=== PATIENT | female | born 1935 | race Caucasian/White ===

== ENCOUNTER → 2016-07-30 | Outpatient (CLI) | payer OTHER ==
[~2016-07-30] MED LIST: ACET1TAB84 PO; ALPR0.25 PO; ASPI81TA28 PO; ATEN50TA8 PO; CLOP1TAB15 PO; DIVA250T PO; ESCI10TA17 PO; IMD/2 PO; ISOS60TA25 PO; NITR0.4S UT; SIMV40TA2 PO; ZNTT/150 PO
[2016-07-30 12:39] LABS: BLOOD UREA NITROGEN 24 mg/dl (7-18); BUN/CREATININE RATIO 16.3 (10-20); CALCIUM 9.1 mg/dl (8.5-10.1); CARBON DIOXIDE 23 mmol/L (21-32); CHLORIDE 108 mmol/L (98-107); ESTIMATED AVERAGE GLUCOSE 126 mg/dl; GLUCOSE 100 mg/dl (70-99); HA1C FLAG Normal (Normal); POTASSIUM 4.2 mmol/L (3.5-5.1); SODIUM 142 mmol/L (136-145)
[2016-07-30 12:43] LABS: CHOLESTEROL 195 mg/dl (0-200); CHOLESTEROL/HDL RATIO 3.3; HDL CHOLESTEROL 59 mg/dl; LDL CHOLESTEROL CALCULATED 102 mg/dl; TRIGLYCERIDES 168 mg/dl (0-150); VERY LOW DENSITY LIPOPROT CALC 34 mg/dl
== END | disposition home or self-care (01) ==
LOC: C.LABBFT 10:04
PROVIDERS: ATTEND Internal Medicine
DX: I25.10 Atherosclerotic heart disease of native coronary artery without angina pectoris (principal); I10 Essential (primary) hypertension; R73.01 Impaired fasting glucose

== ENCOUNTER → 2016-11-13 | Outpatient (CLI) | payer OTHER ==
[2016-11-13 18:39] LABS: BLOOD UREA NITROGEN 20 mg/dl (7-18); CALCIUM 9.2 mg/dl (8.5-10.1); CARBON DIOXIDE 29 mmol/L (21-32); CHLORIDE 100 mmol/L (98-107); GLUCOSE 96 mg/dl (70-99); POTASSIUM 4.6 mmol/L (3.5-5.1); SODIUM 135 mmol/L (136-145)
== END | disposition home or self-care (01) ==
LOC: C.LABBFT 17:50
PROVIDERS: ATTEND Internal Medicine
DX: E87.70 Fluid overload, unspecified (principal)

== ENCOUNTER → 2017-02-26 | Outpatient (CLI) | payer OTHER ==
[2017-02-26 12:04] LABS: BASO % 1.3 %; COMPLETE YES; EOS % 9.2 %; HEMATOCRIT 39.1 % (37-47); IG% 0.1 %; LYMPH % 31.9 %; LYMPH ABS # 2.49 K/uL (1.2-3.4); MEAN CELL VOLUME 97.5 fL (80-100); MEAN CORPUSCULAR HEMOGLOBIN 32.7 pg (25-34); MEAN CORPUSCULAR HGB CONC 33.5 g/dl (32-36); MEAN PLATELET VOLUME 10.3 fL (7.4-10.4); MONO % 9.6 %; NEUT % 47.9 %; PLATELET COUNT 272 K/uL (130-400); RED BLOOD COUNT 4.01 M/uL (4.2-5.4); WHITE BLOOD COUNT 7.81 K/uL (4.8-10.8)
[2017-02-26 12:12] LABS: ALT/SGPT 15 U/L (12-78); BLOOD UREA NITROGEN 29 mg/dl (7-18); BUN/CREATININE RATIO 22.2 (10-20); CALCIUM 9.2 mg/dl (8.5-10.1); CARBON DIOXIDE 26 mmol/L (21-32); CHLORIDE 106 mmol/L (98-107); CHOLESTEROL 159 mg/dl (0-200); GLUCOSE 111 mg/dl (70-99); POTASSIUM 5.2 mmol/L (3.5-5.1); SODIUM 140 mmol/L (136-145)
[2017-02-26 12:20] LABS: ALB/GLOB RATIO 0.9 (0.9-2); ALKALINE PHOSPHATASE 80 U/L (45-117); AST/SGOT 15 U/L (15-37); CHOLESTEROL/HDL RATIO 3.4; HDL CHOLESTEROL 47 mg/dl; LDL CHOLESTEROL CALCULATED 70 mg/dl; TRIGLYCERIDES 212 mg/dl (0-150); VERY LOW DENSITY LIPOPROT CALC 42 mg/dl
== END | disposition home or self-care (01) ==
LOC: C.LABBFT 10:07
PROVIDERS: ATTEND Internal Medicine
DX: Z00.00 Encounter for general adult medical examination without abnormal findings (principal); I25.10 Atherosclerotic heart disease of native coronary artery without angina pectoris; R73.01 Impaired fasting glucose; I10 Essential (primary) hypertension

== ENCOUNTER 2017-06-21 07:33 | Emergency (ER) | payer OTHER ==
[~2017-06-21] VITALS: Ht 170.2 cm; Wt 83.6 kg
[2017-06-21 07:41] VITALS: TEMP 36.7; Ht 170.2 cm; Wt 83.6 kg
[2017-06-21] MEDS ORDERED: ACETAMINOPHEN 500 MG TAB PO STA (07:47)
--- NOTE | 2017-06-21 07:55 | EMERGENCY ROOM VISIT NOTE ---
History Report prepared by Sharon: Minoo Rey Under the Supervision of: Dr. Jerry Padgett M.D. First contact with patient: 07:37 Stated Complaint: FALL History of Present Illness The patient is an 82 year old white female with a past medical history of hypertension, heart disease, CABG, and a brain aneurysm who presents to the ED with a cc of a sudden fall that occurred just prior to arrival. Positive headache and right shoulder pain. Negative abdominal pain, back pain, or chest pain. The patient states that she was woken by her daughter around 0400 [address]. She states that she does not remember falling out of bed. The patient denies any history of seizures. She denies any tongue bite, or urinary or bowel incontinence. The patient states that she takes aspirin daily. Source of History: patient Onset: prior to arrival Position: other (global) Quality: other (fall) Timing: other (sudden) Associated Symptoms: + headache, No chest pain, No abdominal pain, No back pain Note: Associated Symptoms: Right shoulder pain Review of Systems See HPI for pertinent positives and negatives. A total of ten systems were reviewed and were otherwise negative. Past Medical & Surgical Medical Problems: (1) Brain aneurysm (2) Heart disease (3) Hypertension Surgical Problems: (1) H/O heart artery stent (2) Hx of CABG (3) Hx of cholecystectomy Family History FH: heart disease Hypertension Social History Smoking Status: Current Every Day Smoker Alcohol Use: none Housing Status: lives alone Occupation Status: retired Current/Historical Medications Scheduled Acetaminophen (Tylenol), 650 MG PO QAM Acetaminophen (Tylenol), 975 MG PO QPM Aspirin (Aspirin Ec), 81 MG PO DAILY Clopidogrel (Plavix), 75 MG PO DAILY Divalproex Sodium (Depakote Delay Rel), 250 MG PO HS Duloxetine Hcl (Cymbalta), 60 MG PO DAILY Famotidine (Pepcid), 20 MG PO HS Irbesartan (Avapro), 75 MG PO DAILY Isosorbide Mononitrate Ext Rel (Imdur Ext Rel), 60 MG PO QAM Metoprolol Succinate (Toprol Xl), 100 MG PO DAILY Nitroglycerin (Nitrostat), 0.4 MG UT PRN Simvastatin (Zocor), 40 MG PO QPM Scheduled PRN Alprazolam (Xanax), 0.25 MG PO HS PRN for Anxiety Allergies Coded Allergies: Donepezil (Verified Allergy, Intermediate, dirrhea, 06/21/17) Penicillins (Verified Allergy, Unknown, SWELLING, 06/21/17) Sulfa Antibiotics (Verified Allergy, Unknown, SWELLING, 06/21/17) Physical Exam Vital Signs Date Time Temp Pulse Resp B/P (MAP) Pulse Ox O2 Delivery O2 Flow Rate FiO2 06/21/17 10:32 73 16 145/84 95 Room Air 06/21/17 10:30 70 06/21/17 08:45 63 16 137/55 94 Room Air 06/21/17 07:41 36.7 70 20 161/57 93 Room Air 06/21/17 07:41 68 Physical Exam GENERAL: Awake, alert, well-appearing, NAD HENT: Right forehead contusion with small area of ecchymosis. EYES: Normal conjunctiva. Sclera non-icteric. No midline c-spine tenderness. NECK: Supple. No nuchal rigidity. FROM. RESPIRATORY: CTAB, no rhonchi, wheezing, crackles CARDIAC: RRR, no MRG ABDOMEN: Soft, NTND, BS+ MSK: No chest wall TTP, no LE edema, surgical scar over right shoulder, mild tenderness to palpation, no back, chest, or abdominal tenderness to palpation. NEURO: GCS 15, CN 2-12 intact, moves all 4s on command SKIN: No rash or jaundice noted. Medical Decision & Procedures ER Provider Diagnostic Interpretation: Radiology results as stated below per my review and radiologist interpretation: R SHOULDER MIN 2 VIEWS ROUTINE HISTORY: 82 years-old Female s/p fall, prior total shoulder prior reverse right total shoulder arthroplasty. Acute right shoulder pain status post fall COMPARISON: Chest radiograph 06/21/2017. TECHNIQUE: 3 views of the right shoulder FINDINGS: Postoperative changes compatible with prior reverse right total shoulder arthroplasty. Ossifications both inferior and superior to the glenohumeral joint as well as ossifications lateral to the proximal humeral diaphysis may reflect heterotopic ossifications. No acute fracture or subluxation identified. No malalignment identified. Moderate degenerative changes of the right AC joint. Prior median sternotomy. Minimally displaced fracture involving the lateral aspect of the right seventh rib is noted which appears acute to subacute. Prior median sternotomy. Surgical clips project over the left heart border. Atherosclerosis of the carotid bulbs. IMPRESSION: 1. Reverse right total shoulder arthroplasty with satisfactory alignment. Probable heterotopic ossifications about the right shoulder without definite acute fracture or dislocation. 2. Minimally displaced acute to subacute fracture involves the lateral aspect of the right seventh rib which appears new from comparison study 06/02/2016. The above report was generated using voice recognition software. It may contain grammatical, syntax or spelling errors. Electronically signed by: Kel Canales M.D. 06/21/2017 8:55 AM Dictated Date/Time: 06/21/2017 8:[address] HEAD WITHOUT CONTRAST (CT) CLINICAL HISTORY: Head trauma. Head pain. Right for head contusion. COMPARISON STUDY: 06/02/2016 TECHNIQUE: Axial CT of the brain is performed from the vertex to the skull base. IV contrast was not administered for this examination. A dose lowering technique was utilized adhering to the principles of ALARA. CT DOSE: FINDINGS: No intra or extra-axial mass lesions are visualized. There is no CT evidence of acute cortical infarction. There is no evidence of midline shift. There is no acute hemorrhage. No calvarial fractures are visualized. There are patchy white matter hypodensities likely on a small vessel basis. There is no evidence of pathologic ventricular dilatation. There is no evidence of acute sinusitis. 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 There is a right frontal scalp hematoma. IMPRESSION: 1. No evidence of acute intracranial injury 2. Right frontal scalp hematoma 3. 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 Electronically signed by: Bruce Lee M.D. 06/21/2017 8:16 AM Dictated Date/Time: 06/21/2017 8:13 AM CHEST ONE VIEW PORTABLE HISTORY: Generalized abdominal pain. COMPARISON: Chest 06/02/2016. FINDINGS: No pneumothorax. No pleural effusions. The heart is top normal in size. Poststernotomy changes. A few bibasilar linear densities suggesting scarring or atelectasis. The lungs are otherwise clear. No evidence for pulmonary edema. There is a right shoulder prosthesis. IMPRESSION: No significant change compared to the prior study. No acute process. Electronically signed by: Ulysses Villeda M.D. 06/21/2017 8:55 AM Dictated Date/Time: 06/21/2017 8:[address] OF THE CERVICAL SPINE CLINICAL HISTORY: Neck pain status post trauma COMPARISON STUDY: No previous studies for comparison. CT DOSE: 1017.95 mGy.cm TECHNIQUE: CT scan of the cervical spine was performed from the skull base to the thoracic inlet. Images are reviewed in the axial, sagittal, and coronal planes. IV contrast was not administered for this examination. A dose lowering technique was utilized adhering to the principles of ALARA. FINDINGS: The visualized portions of the lung apices reveal no evidence of pneumothorax. The prevertebral soft tissues are normal. No fractures or traumatic subluxations are visualized. There is a C3-4 disc bulge/protrusion. There is 2 mm of anterior subluxation of C3 on C4, a finding which is felt to be degenerative. IMPRESSION: 1. No evidence of acute fracture or traumatic subluxation 2. Multilevel degenerative change. C3-4 disc bulge/protrusion. 2 mm of anterior subluxation of C3 on C4, likely degenerative Electronically signed by: Bruce Lee M.D. 06/21/2017 8:18 AM Dictated Date/Time: 06/21/2017 8:16 AM Laboratory Results 06/21/17 07:55 Red Blood Count 4.19, Mean Corpuscular Volume 97.1, Mean Corpuscular Hemoglobin 31.7, Mean Corpuscular Hemoglobin Concent 32.7, Mean Platelet Volume 9.9, Neutrophils (%) (Auto) 46.9, Lymphocytes (%) (Auto) 30.8, Monocytes (%) (Auto) 10.6, Eosinophils (%) (Auto) 10.6, Basophils (%) (Auto) 1.0, Neutrophils # (Auto ) 3.37, Lymphocytes # (Auto) 2.21, Monocytes # (Auto) 0.76, Eosinophils # (Auto ) 0.76, Basophils # (Auto) 0.07 06/21/17 07:55 Test 06/21/17 07:55 06/21/17 08:42 White Blood Count 7.18 K/uL (4.8-10.8) Red Blood Count 4.19 M/uL (4.2-5.4) Hemoglobin 13.3 g/dL (12.0-16.0) Hematocrit 40.7 % (37-47) Mean Corpuscular Volume 97.1 fL (80-100) Mean Corpuscular Hemoglobin 31.7 pg (25-34) Mean Corpuscular Hemoglobin Concent 32.7 g/dl (32-36) Platelet Count 236 K/uL (130-400) Mean Platelet Volume 9.9 fL (7.4-10.4) Neutrophils (%) (Auto) 46.9 % Lymphocytes (%) (Auto) 30.8 % Monocytes (%) (Auto) 10.6 % Eosinophils (%) (Auto) 10.6 % Basophils (%) (Auto) 1.0 % Neutrophils # (Auto) 3.37 K/uL (1.4-6.5) Lymphocytes # (Auto) 2.21 K/uL (1.2-3.4) Monocytes # (Auto) 0.76 K/uL (0.11-0.59) Eosinophils # (Auto) 0.76 K/uL (0-0.5) Basophils # (Auto) 0.07 K/uL (0-0.2) RDW Standard Deviation 46.9 fL (36.4-46.3) RDW Coefficient of Variation 13.4 % (11.5-14.5) Immature Granulocyte % (Auto) 0.1 % Immature Granulocyte # (Auto) 0.01 K/uL (0.00-0.02) Anion Gap 8.0 mmol/L (3-11) Est Creatinine Clear Calc Drug Dose 41.2 ml/min Estimated GFR () 50.3 Estimated GFR (Non- 43.4 BUN/Creatinine Ratio 22.7 (10-20) Calcium Level 8.9 mg/dl (8.5-10.1) Total Bilirubin 0.3 mg/dl (0.2-1) Direct Bilirubin < 0.1 mg/dl (0-0.2) Aspartate Amino Transf (AST/SGOT) 18 U/L (15-37) Alanine Aminotransferase (ALT/SGPT) 17 U/L (12-78) Alkaline Phosphatase 85 U/L (45-117) Troponin I < 0.015 ng/ml (0-0.045) Total Protein 7.2 gm/dl (6.4-8.2) Albumin 3.4 gm/dl (3.4-5.0) Prothrombin Time 9.5 SECONDS (9.0-12.0) Prothromb Time International Ratio 0.9 (0.9-1.1) Activated Partial Thromboplast Time 26.0 SECONDS (21.0-31.0) Partial Thromboplastin Ratio 1.0 Laboratory results reviewed by me Medications Administered Medications (Trade) Dose Ordered Sig/Gurjit Route Start Time Stop Time Status Last Admin Dose Admin Acetaminophen (Tylenol Tab) 1,000 mg NOW STAT PO 06/21/17 07:47 06/21/17 07:49 DC 06/21/17 07:54 1,000 MG ECG Indication: other (trauma) Rate (beats per minute): 65 Rhythm: normal sinus Findings: T-wave inversion (Lateral), other (borderline QRS and QTC, no other STS changes or TWI) Comparison ECG Date: 06/02/16 Change: When compared to EKG done on 06/02/16 QRS and T wave inversions are old. ED Course 0742: The patient was evaluated in room A3. A complete history and physical exam was performed. 0951: I reevaluated the patient and she is resting comfortably. I discussed the test results with her and I discussed the treatment plan. Neurology will be consulted and then she will be discharged home. 1024: I discussed the patients case with Dr. Ann, Neurology. He said that this was unlikely seizure and states that the patient is okay to go home. 1100: I reevaluated the patient and she is doing well. I discussed the treatment plan and she verbalized complete understanding and agreement. She is ready to go home. Medical Decision Triage Nursing notes reviewed. The patient's presentation and history were concerning for ICH, fall, strain, sprain, syncope, ACS. The patient is an 82 year old white female with a past medical history of hypertension, heart disease, CABG, and a brain aneurysm who presents to the ED with a cc of a sudden fall that occurred just prior to arrival. Patient was seen and evaluated the bedside. Patient did have a fall. Patient denies any seizure history and denies any tongue biting or incontinence. Patient does complain of some mild right-sided shoulder pain as well as mild headache. She does take aspirin and Plavix. Patient does have a noted surgical scar to the right shoulder. Patient is neuro intact. Patient does have a small contusion to the right forehead. Patient did have CT of the head and neck. Patient does have a noted aneurysm which appears chronic as patient prior brain MRI shows a right MCA aneurysm. Patient has a normal neurologic exam. Patient did have blood work that was completed that was fairly unremarkable. Patient's EKG shows T-wave inversions laterally which are chronic. I did discuss with the neurologist given the patient's prior history of aneurysm with or not this would cause some sort of seizure. He stated unlikely. CT noted this as well but no acute bleed. CT C spine degenerative changes, neg acute. Patient was informed of all findings. Patient did have a chest x-ray which showed a subacute to acute right-sided rib fracture however she has no tenderness to palpation. Patient was not tachypneic nor hypoxic. Patient was instructed to apply a compression bandage to her head. Patient was given strict follow-up, discharge, and return precautions. All questions were answered. Patient was deemed suitable for outpatient follow-up at this time. Patient agreed with the plan of care and was safely discharged home. Medication Reconcilliation Current Medication List: was personally reviewed by me Blood Pressure Screening Patient's blood pressure: Elevated blood pressure Blood pressure disposition: Referred to PCP Consults Time Called: 1012 Consulting Physician: Dr. Ann, Neurology Returned Call: [phone] I discussed the patients case with Dr. Ann, Neurology. He said that this was unlikely seizure and states that the patient is okay to go home. Impression Primary Impression: Fall Additional Impression: Contusion of head Scribe Attestation The scribe's documentation has been prepared under my direction and personally reviewed by me in its entirety. I confirm that the note above accurately reflects all work, treatment, procedures, and medical decision making performed by me. Departure Information Dispostion Home / Self-Care Referrals Irma Reid M.D. (PCP) Forms HOME CARE DOCUMENTATION FORM, IMPORTANT VISIT INFORMATION Patient Instructions ED Contusion Face, ED Mechanical Fall, ED Prevention Fall, My [facility] Additional Instructions Please return to the emergency department if you have worsening or recurrent symptoms not amenable to at-home treatment. Please call for a follow-up appointment with her primary care physician. Please take your medications as prescribed. If you have other concerns and/or complaints please feel free to also call your primary care physician's office or return the ED for further evaluation, management, and treatment. Take your medications as prescribed. Apply a compression bandage to your head to help w/ swelling. You may also try icepacks. You have been examined and treated today on an emergency basis only. This is not a substitute for, or an effort to provide, complete comprehensive medical care. It is impossible to recognize and treat all injuries or illnesses in a single emergency department visit. It is therefore important that you follow up closely with [facility], your PCP, and/or your specialist(s). Call as soon as possible for an appointment. Thank you for your time and consideration. I look forward to speaking with you again soon. Please don't hesitate to call us if you have any questions. Problem Qualifiers Primary Impression: Fall Encounter type: initial encounter Qualified Codes: W19.XXXA - Unspecified fall, initial encounter Additional Impression: Contusion of head Encounter type: initial encounter Contusion of head detail: scalp Qualified Codes: S00.03XA - Contusion of scalp, initial encounter
[2017-06-21 08:17] LABS: BASO ABS # 0.07 K/uL (0-0.2); COMPLETE YES; EOS % 10.6 %; HEMATOCRIT 40.7 % (37-47); IG% 0.1 %; LYMPH % 30.8 %; LYMPH ABS # 2.21 K/uL (1.2-3.4); MEAN CELL VOLUME 97.1 fL (80-100); MEAN CORPUSCULAR HEMOGLOBIN 31.7 pg (25-34); MEAN CORPUSCULAR HGB CONC 32.7 g/dl (32-36); MEAN PLATELET VOLUME 9.9 fL (7.4-10.4); MONO % 10.6 %; NEUT % 46.9 %; PLATELET COUNT 236 K/uL (130-400); RED BLOOD COUNT 4.19 M/uL (4.2-5.4); WHITE BLOOD COUNT 7.18 K/uL (4.8-10.8)
--- NOTE | 2017-06-21 08:17 | DIAGNOSTIC IMAGING REPORT ---
CT HEAD WITHOUT CONTRAST (CT) CLINICAL HISTORY: Head trauma. Head pain. Right for head contusion. COMPARISON STUDY: 06/02/2016 TECHNIQUE: Axial CT of the brain is performed from the vertex to the skull base. IV contrast was not administered for this examination. A dose lowering technique was utilized adhering to the principles of ALARA. CT DOSE: FINDINGS: No intra or extra-axial mass lesions are visualized. There is no CT evidence of acute cortical infarction. There is no evidence of midline shift. There is no acute hemorrhage. No calvarial fractures are visualized. There are patchy white matter hypodensities likely on a small vessel basis. There is no evidence of pathologic ventricular dilatation. There is no evidence of acute sinusitis. 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 There is a right frontal scalp hematoma. IMPRESSION: 1. No evidence of acute intracranial injury 2. Right frontal scalp hematoma 3. 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 Electronically signed by: Bruce Lee M.D. 06/21/2017 8:16 AM Dictated Date/Time: 06/21/2017 8:13 AM
--- NOTE | 2017-06-21 08:19 | DIAGNOSTIC IMAGING REPORT ---
CT OF THE CERVICAL SPINE CLINICAL HISTORY: Neck pain status post trauma COMPARISON STUDY: No previous studies for comparison. CT DOSE: 1017.95 mGy.cm TECHNIQUE: CT scan of the cervical spine was performed from the skull base to the thoracic inlet. Images are reviewed in the axial, sagittal, and coronal planes. IV contrast was not administered for this examination. A dose lowering technique was utilized adhering to the principles of ALARA. FINDINGS: The visualized portions of the lung apices reveal no evidence of pneumothorax. The prevertebral soft tissues are normal. No fractures or traumatic subluxations are visualized. There is a C3-4 disc bulge/protrusion. There is 2 mm of anterior subluxation of C3 on C4, a finding which is felt to be degenerative. IMPRESSION: 1. No evidence of acute fracture or traumatic subluxation 2. Multilevel degenerative change. C3-4 disc bulge/protrusion. 2 mm of anterior subluxation of C3 on C4, likely degenerative Electronically signed by: Bruce Lee M.D. 06/21/2017 8:18 AM Dictated Date/Time: 06/21/2017 8:16 AM
[2017-06-21] MEDS ORDERED: METO-479 PO (08:26)
[2017-06-21] MEDS ORDERED: DULO60CA44 PO (08:26)
[2017-06-21] MEDS ORDERED: [UNRECOGNIZED DRUG - CODE] PO (08:26)
[2017-06-21] MEDS ORDERED: ACET-1311 PO ×2 (08:26)
[2017-06-21] MEDS ORDERED: DIVA250T4 PO (08:26)
[2017-06-21] MEDS ORDERED: FAMO20TA11 PO (08:26)
[2017-06-21 08:50] LABS: ALKALINE PHOSPHATASE 85 U/L (45-117); ALT/SGPT 17 U/L (12-78); BLOOD UREA NITROGEN 27 mg/dl (7-18); BUN/CREATININE RATIO 22.7 (10-20); CALCIUM 8.9 mg/dl (8.5-10.1); CARBON DIOXIDE 26 mmol/L (21-32); CHLORIDE 106 mmol/L (98-107); CREATININE 1.17 mg/dl (0.60-1.20); GLUCOSE 108 mg/dl (70-99)
[2017-06-21 08:51] LABS: POTASSIUM 4.6 mmol/L (3.5-5.1); SODIUM 140 mmol/L (136-145)
[2017-06-21 08:56] LABS: AST/SGOT 18 U/L (15-37)
--- NOTE | 2017-06-21 08:56 | DIAGNOSTIC IMAGING REPORT ---
CHEST ONE VIEW PORTABLE HISTORY: Generalized abdominal pain. COMPARISON: Chest 06/02/2016. FINDINGS: No pneumothorax. No pleural effusions. The heart is top normal in size. Poststernotomy changes. A few bibasilar linear densities suggesting scarring or atelectasis. The lungs are otherwise clear. No evidence for pulmonary edema. There is a right shoulder prosthesis. IMPRESSION: No significant change compared to the prior study. No acute process. Electronically signed by: Ulysses Villead M.D. 06/21/2017 8:55 AM Dictated Date/Time: 06/21/2017 8:52 AM
--- NOTE | 2017-06-21 08:57 | DIAGNOSTIC IMAGING REPORT ---
R SHOULDER MIN 2 VIEWS ROUTINE HISTORY: 82 years-old Female s/p fall, prior total shoulder prior reverse right total shoulder arthroplasty. Acute right shoulder pain status post fall COMPARISON: Chest radiograph 06/21/2017. TECHNIQUE: 3 views of the right shoulder FINDINGS: Postoperative changes compatible with prior reverse right total shoulder arthroplasty. Ossifications both inferior and superior to the glenohumeral joint as well as ossifications lateral to the proximal humeral diaphysis may reflect heterotopic ossifications. No acute fracture or subluxation identified. No malalignment identified. Moderate degenerative changes of the right AC joint. Prior median sternotomy. Minimally displaced fracture involving the lateral aspect of the right seventh rib is noted which appears acute to subacute. Prior median sternotomy. Surgical clips project over the left heart border. Atherosclerosis of the carotid bulbs. IMPRESSION: 1. Reverse right total shoulder arthroplasty with satisfactory alignment. Probable heterotopic ossifications about the right shoulder without definite acute fracture or dislocation. 2. Minimally displaced acute to subacute fracture involves the lateral aspect of the right seventh rib which appears new from comparison study 06/02/2016. The above report was generated using voice recognition software. It may contain grammatical, syntax or spelling errors. Electronically signed by: Kel Canales M.D. 06/21/2017 8:55 AM Dictated Date/Time: 06/21/2017 8:51 AM
[2017-06-21 09:08] LABS: INR 0.9 (0.9-1.1); PROTHROMBIN TIME (PATIENT) 9.5 SECONDS (9.0-12.0)
[2017-06-21 11:05] VITALS: BP 141/70; PULSE 83; O2SAT 93
== END 2017-06-21 11:07 | disposition home or self-care (01) ==
LOC: EDBD 07:33 → C.EDA 07:35
DX: S00.83XA Contusion of other part of head, initial encounter (principal); S22.31XA Fracture of one rib, right side, initial encounter for closed fracture; W06.XXXA Fall from bed, initial encounter; M25.511 Pain in right shoulder; I67.1 Cerebral aneurysm, nonruptured; R40.2412 Glasgow coma scale score 13-15, at arrival to emergency department; R94.31 Abnormal electrocardiogram [ECG] [EKG]; I11.0 Hypertensive heart disease with heart failure; F17.200 Nicotine dependence, unspecified, uncomplicated; Z95.1 Presence of aortocoronary bypass graft; Z79.82 Long term (current) use of aspirin; Z82.49 Family history of ischemic heart disease and other diseases of the circulatory system

== ENCOUNTER 2017-06-23 08:41 | Emergency (ER) | payer OTHER ==
[~2017-06-23] VITALS: Ht 170.2 cm; Wt 77.0 kg
[~2017-06-23 08:41] MED LIST changes: +ACET-1311 PO; -ACET1TAB84 PO; -ATEN50TA8 PO; -DIVA250T PO; +DIVA250T4 PO; +DULO60CA44 PO; -ESCI10TA17 PO; +FAMO20TA11 PO; -IMD/2 PO; +METO-479 PO; -ZNTT/150 PO; +[UNRECOGNIZED DRUG - CODE] PO
[2017-06-23 08:45] VITALS: TEMP 36.4; Ht 170.2 cm; Wt 77.0 kg
[2017-06-23] MEDS ORDERED: HYDROCODONE/ACETAMOPHEN 5/325MG TAB PO STA (09:05)
[2017-06-23] MEDS ORDERED: TRAMADOL HCL 50 MG TAB PO STA (09:05)
[2017-06-23] MEDS ORDERED: IBUPROFEN 600 MG TAB PO STA (09:05)
--- NOTE | 2017-06-23 09:07 | EMERGENCY ROOM VISIT NOTE ---
History Report prepared by Sharon: Minoo Rey Under the Supervision of: Dr. Jerry Padgett M.D. First contact with patient: 08:50 Chief Complaint: BACK PAIN Stated Complaint: RIGHT KNEE PAIN, BACK PAIN HURTS TO BRETH History of Present Illness The patient is an 82 year old white female with a past medical history of Heart disease, hypertension, brain aneurysm who presents to the ED with a cc of persistent back pain beginning prior to arrival. Positive headache, chest pain with breathing, bilateral knee pain. She currently rates her discomfort as an 8/ 10 in severity. Per records, the patient was found beside her bed two days ago after an unwitnessed fall. Records indicate that the patient had normal x-rays and CT scans. The patient states that she has tried Tylenol without relief of her symptoms. The patient denies any falls since she was evaluated in the emergency department. Source of History: patient Onset: prior to arrival Position: back Symptom Intensity: 8/10 Timing: other (persistent) Associated Symptoms: + headache, + chest pain Note: Associated symptoms: bilateral knee pain Review of Systems See HPI for pertinent positives and negatives. A total of ten systems were reviewed and were otherwise negative. Past Medical & Surgical Medical Problems: (1) Brain aneurysm (2) Heart disease (3) Hypertension Surgical Problems: (1) H/O heart artery stent (2) Hx of CABG (3) Hx of cholecystectomy Family History FH: heart disease Hypertension Social History Smoking Status: Current Every Day Smoker Alcohol Use: none Housing Status: lives alone Occupation Status: retired Current/Historical Medications Scheduled Acetaminophen (Tylenol), 650 MG PO QAM Acetaminophen (Tylenol), 975 MG PO QPM Aspirin (Aspirin Ec), 81 MG PO DAILY Clopidogrel (Plavix), 75 MG PO DAILY Divalproex Sodium (Depakote Delay Rel), 250 MG PO QAM Duloxetine Hcl (Cymbalta), 60 MG PO DAILY Famotidine (Pepcid), 20 MG PO QAM Irbesartan (Avapro), 75 MG PO DAILY Isosorbide Mononitrate Ext Rel (Imdur Ext Rel), 60 MG PO QAM Metoprolol Succinate (Toprol Xl), 100 MG PO DAILY Nitroglycerin (Nitrostat), 0.4 MG UT PRN Simvastatin (Zocor), 40 MG PO QPM Tramadol Hcl (Ultram), 25 MG PO Q8H Scheduled PRN Alprazolam (Xanax), 0.25 MG PO HS PRN for Anxiety Oxycodone Immediate Rel Tab (Roxicodone Ir), 2.5 MG PO Q6H PRN for Pain Allergies Coded Allergies: Donepezil (Verified Allergy, Intermediate, dirrhea, 06/23/17) Penicillins (Verified Allergy, Unknown, SWELLING, 06/23/17) Sulfa Antibiotics (Verified Allergy, Unknown, SWELLING, 06/23/17) Physical Exam Vital Signs Date Time Temp Pulse Resp B/P (MAP) Pulse Ox O2 Delivery O2 Flow Rate FiO2 06/23/17 11:29 59 20 119/59 95 Room Air 06/23/17 10:38 58 06/23/17 10:33 59 22 94 Room Air 06/23/17 10:29 94 Room Air 06/23/17 08:45 36.4 72 22 144/64 96 Room Air Physical Exam GENERAL: Awake, alert, well-appearing, NAD HENT: Ecchymosis to the right forehead EYES: Normal conjunctiva. Sclera non-icteric. NECK: Supple. No nuchal rigidity. FROM. RESPIRATORY: CTAB, no rhonchi, wheezing, crackles CARDIAC: RRR, no MRG ABDOMEN: Soft, NTND, BS+ MSK: some right sided chest wall pain, no LE edema, no posterior chest or back pain, mild tenderness over the palm of the right hand, some bruising to the bilateral knees, NVI distally. NEURO: GCS 15, CN 2-12 intact, moves all 4s on command SKIN: No rash or jaundice noted. Medical Decision & Procedures ER Provider Diagnostic Interpretation: Radiology results as stated below per my review and radiologist interpretation: R KNEE 3 VIEWS, L KNEE 3 VIEWS CLINICAL HISTORY: s/p fall, bruising. Bilateral knee pain. COMPARISON STUDY: None. FINDINGS: Mild cartilage space narrowing within the medial compartments of the bilateral knees. Surgical clips within the medial left knee. No fracture or dislocation. No knee effusions. IMPRESSION: No fracture or dislocation within the right or left knee. Electronically signed by: Ulysses Villeda M.D. 06/23/2017 10:09 AM Dictated Date/Time: 06/23/2017 10:07 AM R KNEE 3 VIEWS, L KNEE 3 VIEWS CLINICAL HISTORY: s/p fall, bruising. Bilateral knee pain. COMPARISON STUDY: None. FINDINGS: Mild cartilage space narrowing within the medial compartments of the bilateral knees. Surgical clips within the medial left knee. No fracture or dislocation. No knee effusions. IMPRESSION: No fracture or dislocation within the right or left knee. Electronically signed by: Ulysses Villeda M.D. 06/23/2017 10:09 AM Dictated Date/Time: 06/23/2017 10:[address] HEAD WITHOUT CONTRAST (CT) CLINICAL HISTORY: Head pain status post trauma COMPARISON STUDY: 06/21/2017 TECHNIQUE: Axial CT of the brain is performed from the vertex to the skull base. IV contrast was not administered for this examination. A dose lowering technique was utilized adhering to the principles of ALARA. CT DOSE: 1310.24 mGy.cm FINDINGS: No intra or extra-axial mass lesions are visualized. There is no CT evidence of acute cortical infarction. There is no evidence of midline shift. There is no acute hemorrhage. No calvarial fractures are visualized. There are patchy white matter hypodensities likely on a small vessel basis. There is no evidence of pathologic ventricular dilatation. There is been interval decrease in the size of the right frontal scalp hematoma. 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 IMPRESSION: 1. No acute intracranial findings 2. Interval decrease in the size the right frontal scalp hematoma 3. 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 06/23/2017 9:52 AM Dictated Date/Time: 06/23/2017 9:50 AM R HAND MIN 3 VIEWS ROUTINE CLINICAL HISTORY: Right hand pain status post trauma COMPARISON: None DISCUSSION: The bones are osteopenic. 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 No acute fractures are visualized. There is a venous catheter present within the radial aspect of the wrist. IMPRESSION: No acute fractures or dislocations identified. Electronically signed by: Bruce Lee M.D. 06/23/2017 10:12 AM Dictated Date/Time: 06/23/2017 10:10 AM (CHEST) THORAX WITHOUT CT DOSE: HISTORY: Right posterior rib pain. Fall. Trauma TECHNIQUE: Multiaxial CT images of the chest were performed without contrast. A dose lowering technique was utilized adhering to the principles of ALARA. COMPARISON: Chest 06/21/2017. FINDINGS: There is again noted a right shoulder prosthesis. Poststernotomy changes. Old, healed right-sided rib fractures. No acute fractures within the visualized osseous structures. No pneumothorax. Mild emphysema. Mild interstitial thickening which is likely chronic. The central airways are patent. No pneumothorax. No focal lung consolidations to suggest pneumonia. A few scattered groundglass densities at the lung bases may be due to mild dependent change. There is a 1.8 cm groundglass and cystic focus seen within the periphery of the left lower lobe on image 169. This has a non masslike appearance at this time and may be chronic. No mediastinal or hilar lymphadenopathy. The heart is normal in size. Mild calcified plaque within the normal caliber thoracic aorta. Hypodense lesions within the liver are technically indeterminate on this noncontrast study but favor cysts. The unenhanced spleen and adrenal glands are unremarkable. IMPRESSION: 1. No acute traumatic process within the chest. 2. Old, healed right-sided rib fractures. 3. Mild interstitial thickening within the lungs which is likely chronic. 4. A 1.8 cm groundglass and cystic focus within the periphery of the left lower lobe. This has a non masslike appearance at this time and may be due to an area of scarring. However, six-month chest CT follow up is recommended to ensure stability. Electronically signed by: Ulysses Villeda M.D. 06/23/2017 10:01 AM Dictated Date/Time: 06/23/2017 9:50 AM Medications Administered Medications (Trade) Dose Ordered Sig/Gurjit Route Start Time Stop Time Status Last Admin Dose Admin Acetaminophen/ Hydrocodone Bitart (Rochelle 5/325 Tab) 1 tab ONE STAT PO 06/23/17 09:05 06/23/17 09:30 DC 06/23/17 09:34 1 TAB Tramadol HCl (Ultram Tab) 50 mg NOW STAT PO 06/23/17 09:05 06/23/17 09:30 DC 06/23/17 09:35 50 MG Ibuprofen (Motrin Tab) 600 mg NOW STAT PO 06/23/17 09:05 06/23/17 09:30 DC 06/23/17 09:36 600 MG ED Course 0859: The patient was evaluated in room B3B. A complete history and physical exam was performed. 1009: I reevaluated the patient and she is resting comfortably. I discussed the test results with her and I discussed the treatment plan. She verbalized complete understanding and agreement. 1108: I reevaluated the patient and she is resting comfortably. I discussed the test results with her and I discussed the treatment plan. She verbalized complete understanding and agreement. She is ready to go home shortly. Medical Decision Differential diagnosis: Etiologies such as fracture, dislocation, intra-abdominal, pneumothorax, intrathoracic , intracranial, neurologic, as well as other traumatic pathologies were entertained. The patient is an 82 year old white female with a past medical history of Heart disease, hypertension, brain aneurysm who presents to the ED with a cc of persistent back pain beginning prior to arrival. Patient was seen and evaluated at the bedside. I did see this patient 2 days ago after she had a fall. Patient had a fairly unremarkable workup at that time. Patient has been complaining of some discomfort when breathing and does have some reproducible chest wall tenderness. Patient was complaining also of some right hand pain and bilateral knee pain. Patient is able to flex and extend at the knees. Patient has normal motor and sensory function of the right hand. Patient did have a repeat CT of the head completed given her prior history of fall and Plavix use. She has an otherwise normal neurologic exam. Patient also had a CT of the chest as well as plain films of the knees and hand. Patient was also given pain medication. Patient's CT did show a questionable groundglass opacity that did require follow-up. Patient did have some old rib fractures. Patient was told of this opacity that needed a repeat CT of the chest in 6 months for follow-up. Patient CT of the brain was negative. Patient's plain films were also negative. I did discuss with cyanide case hardener about some outpatient rehabilitation and/or physical therapy. They were given resources. Patient was given some pain medication for home. Patient was deemed suitable for outpatient follow-up and treatment as the patient was able to tolerate, had improvement of her pain, and was able tolerate by mouth. Patient also does have good follow-up as well as her daughter that helps take care of her. Patient was given strict follow-up, discharge, and return precautions. All questions were answered. Patient was deemed suitable for outpatient follow-up at this time. Patient agreed with the plan of care and was safely discharged home. Medication Reconcilliation Current Medication List: was personally reviewed by me Blood Pressure Screening Patient's blood pressure: Elevated blood pressure Blood pressure disposition: Elevated BP felt to be situational Impression Primary Impression: Fall Additional Impressions: Knee pain Hand pain, right Scribe Attestation The scribe's documentation has been prepared under my direction and personally reviewed by me in its entirety. I confirm that the note above accurately reflects all work, treatment, procedures, and medical decision making performed by me. Departure Information Dispostion Home / Self-Care Prescriptions Tramadol Hcl (ULTRAM) 50 Mg Tab 25 MG PO Q8H, #12 TAB PRN PAIN Prov: Jerry Padgett M.D. 06/23/17 Oxycodone Immediate Rel Tab (ROXICODONE IR) 5 Mg Tab 2.5 MG PO Q6H Y for Pain, #12 TAB Prov: Jerry Padgett M.D. 06/23/17 Referrals Irma Reid M.D. (PCP) Forms HOME CARE DOCUMENTATION FORM, IMPORTANT VISIT INFORMATION Patient Instructions ED Mechanical Fall, ED Prevention Fall, ED RICE, [facility] Additional Instructions Please return to the emergency department if you have worsening or recurrent symptoms not amenable to at-home treatment. Please call for a follow-up appointment with her primary care physician. Please take your medications as prescribed. If you have other concerns and/or complaints please feel free to also call your primary care physician's office or return the ED for further evaluation, management, and treatment. You received narcotic or benzodiazepene medication while in the emergency room today. This is an addictive medication that may cause drowziness as well as constipation. Do not drive, operate heavy machinery, or drink alcohol under the influence of this medication. You may take tylenol 1000 mg every 6 hours as needed for pain. If you are still having pain he may try the tramadol. Please note that it does make you sleepy and sedated. If you're still having pain that you're awake alert you may consider trying some of the Roxicodone. Please note that this is a narcotic medication that his habit forming and may make him more sleepy and/or sedated. Take your medications as prescribed. You have been examined and treated today on an emergency basis only. This is not a substitute for, or an effort to provide, complete comprehensive medical care. It is impossible to recognize and treat all injuries or illnesses in a single emergency department visit. It is therefore important that you follow up closely with [facility], your PCP, and/or your specialist(s). Call as soon as possible for an appointment. Thank you for your time and consideration. I look forward to speaking with you again soon. Please don't hesitate to call us if you have any questions. Problem Qualifiers Primary Impression: Fall Encounter type: subsequent encounter Qualified Codes: W19.XXXD - Unspecified fall, subsequent encounter Additional Impressions: Knee pain Chronicity: acute Laterality: bilateral Qualified Codes: M25.561 - Pain in right knee; M25.562 - Pain in left knee
--- NOTE | 2017-06-23 09:54 | DIAGNOSTIC IMAGING REPORT ---
CT HEAD WITHOUT CONTRAST (CT) CLINICAL HISTORY: Head pain status post trauma COMPARISON STUDY: 06/21/2017 TECHNIQUE: Axial CT of the brain is performed from the vertex to the skull base. IV contrast was not administered for this examination. A dose lowering technique was utilized adhering to the principles of ALARA. CT DOSE: 1310.24 mGy.cm FINDINGS: No intra or extra-axial mass lesions are visualized. There is no CT evidence of acute cortical infarction. There is no evidence of midline shift. There is no acute hemorrhage. No calvarial fractures are visualized. There are patchy white matter hypodensities likely on a small vessel basis. There is no evidence of pathologic ventricular dilatation. There is been interval decrease in the size of the right frontal scalp hematoma. 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 IMPRESSION: 1. No acute intracranial findings 2. Interval decrease in the size the right frontal scalp hematoma 3. 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 06/23/2017 9:52 AM Dictated Date/Time: 06/23/2017 9:50 AM
--- NOTE | 2017-06-23 10:03 | DIAGNOSTIC IMAGING REPORT ---
(CHEST) THORAX WITHOUT CT DOSE: HISTORY: Right posterior rib pain. Fall. Trauma TECHNIQUE: Multiaxial CT images of the chest were performed without contrast. A dose lowering technique was utilized adhering to the principles of ALARA. COMPARISON: Chest 06/21/2017. FINDINGS: There is again noted a right shoulder prosthesis. Poststernotomy changes. Old, healed right-sided rib fractures. No acute fractures within the visualized osseous structures. No pneumothorax. Mild emphysema. Mild interstitial thickening which is likely chronic. The central airways are patent. No pneumothorax. No focal lung consolidations to suggest pneumonia. A few scattered groundglass densities at the lung bases may be due to mild dependent change. There is a 1.8 cm groundglass and cystic focus seen within the periphery of the left lower lobe on image 169. This has a non masslike appearance at this time and may be chronic. No mediastinal or hilar lymphadenopathy. The heart is normal in size. Mild calcified plaque within the normal caliber thoracic aorta. Hypodense lesions within the liver are technically indeterminate on this noncontrast study but favor cysts. The unenhanced spleen and adrenal glands are unremarkable. IMPRESSION: 1. No acute traumatic process within the chest. 2. Old, healed right-sided rib fractures. 3. Mild interstitial thickening within the lungs which is likely chronic. 4. A 1.8 cm groundglass and cystic focus within the periphery of the left lower lobe. This has a non masslike appearance at this time and may be due to an area of scarring. However, six-month chest CT follow up is recommended to ensure stability. Electronically signed by: Ulysses Villeda M.D. 06/23/2017 10:01 AM Dictated Date/Time: 06/23/2017 9:50 AM
--- NOTE | 2017-06-23 10:10 | DIAGNOSTIC IMAGING REPORT ---
R KNEE 3 VIEWS, L KNEE 3 VIEWS CLINICAL HISTORY: s/p fall, bruising. Bilateral knee pain. COMPARISON STUDY: None. FINDINGS: Mild cartilage space narrowing within the medial compartments of the bilateral knees. Surgical clips within the medial left knee. No fracture or dislocation. No knee effusions. IMPRESSION: No fracture or dislocation within the right or left knee. Electronically signed by: Ulysses Villeda M.D. 06/23/2017 10:09 AM Dictated Date/Time: 06/23/2017 10:07 AM
--- NOTE | 2017-06-23 10:13 | DIAGNOSTIC IMAGING REPORT ---
R HAND MIN 3 VIEWS ROUTINE CLINICAL HISTORY: Right hand pain status post trauma COMPARISON: None DISCUSSION: The bones are osteopenic. 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 No acute fractures are visualized. There is a venous catheter present within the radial aspect of the wrist. IMPRESSION: No acute fractures or dislocations identified. Electronically signed by: Bruce Lee M.D. 06/23/2017 10:12 AM Dictated Date/Time: 06/23/2017 10:10 AM
[2017-06-23 10:29] VITALS: O2SAT 94
[2017-06-23 11:29] VITALS: BP 119/59; PULSE 59; O2SAT 95
[2017-06-23] MEDS ORDERED: TRAM-453 PO (11:35)
[2017-06-23] MEDS ORDERED: OXYC1TAB3 PO (11:35)
== END 2017-06-23 11:54 | disposition home or self-care (01) ==
LOC: C.EDB 08:42
DX: M25.561 Pain in right knee (principal); M25.562 Pain in left knee; M79.641 Pain in right hand; W19.XXXD Unspecified fall, subsequent encounter; I10 Essential (primary) hypertension; F17.200 Nicotine dependence, unspecified, uncomplicated; Z98.61 Coronary angioplasty status; Z95.1 Presence of aortocoronary bypass graft; Z90.49 Acquired absence of other specified parts of digestive tract; Z82.49 Family history of ischemic heart disease and other diseases of the circulatory system; Z79.02 Long term (current) use of antithrombotics/antiplatelets; Z79.82 Long term (current) use of aspirin; Z79.899 Other long term (current) drug therapy

== ENCOUNTER 2017-07-13 13:30 | Observation (INO) | payer OTHER ==
[~2017-07-13] VITALS: Ht 170.2 cm; Wt 82.8 kg
[~2017-07-13 13:30] MED LIST changes: +OXYC1TAB3 PO
--- NOTE | 2017-07-13 14:15 | EMERGENCY ROOM VISIT NOTE ---
History First contact with patient: 13:47 Chief Complaint: DIZZY Stated Complaint: GENERALIZED WEAKNESS Nursing Triage Summary: pt reports feeling dizzy and lightheaded for last 2-3 days went to pcp sent eher for eval of htn . bp is currently 135/58. and approx same for medic unit. staff at pcp said bp was 140/90. pt has old right shoulder injury causing weakness in right arm and unable to move it well. nothing new per pt is chronic pain 5/0- 10 scale now. pt has hx of 2 previous brain aneurysm not treated History of Present Illness The patient is a 82 year old female who was sent to the emergency room by her PCP due to a 2 day history of lightheadedness and unsteady gait. She reports she feels lightheaded all the time and unsteady on her feet. She lives at home with her daughter who states previously she used to be independent with her ADLs but now her daughter has to accompany her to the washroom because she is unsteady, even with a walker. She recently did have a fall, 2 weeks ago, where she fell out of bed and hit the right side of her head. Her CT brain was negative for an acute bleed at this time. She also has a rehab nursing tech at home who reports that Ms. Maier has been more short of breath than usual, and that she is now SOB with walking across a room. She denies chest pain, cough, flu symptoms, urinary symptoms, and states she is eating and drinking well and her bowels are moving normally. Her metoprolol was decreased from 100mg to 25mg in the last week, but other than that, she denies any other medication changes. She also denies PND, orthopnea, and leg swelling. Of note, she has a history of brain aneurysms which are being monitored. Review of Systems See HPI for pertinent positives & negatives. A total of 10 systems reviewed and were otherwise negative. Past Medical/Surgical History Medical Problems: (1) Brain aneurysm (2) Heart disease (3) Hypertension Surgical Problems: (1) H/O heart artery stent (2) Hx of CABG (3) Hx of cholecystectomy Family History FH: heart disease Hypertension Social History Smoking Status: Current Every Day Smoker Alcohol Use: none Drug Use: none Housing Status: lives with family (lives with daughter) Occupation Status: retired Current/Historical Medications Scheduled Acetaminophen (Tylenol), 650 MG PO QAM Acetaminophen (Tylenol), 975 MG PO QPM Aspirin (Aspirin Ec), 81 MG PO DAILY Clopidogrel (Plavix), 75 MG PO DAILY Divalproex Sodium (Depakote Delay Rel), 250 MG PO QAM Duloxetine Hcl (Cymbalta), 60 MG PO DAILY Famotidine (Pepcid), 20 MG PO QAM Irbesartan (Avapro), 75 MG PO DAILY Isosorbide Mononitrate Ext Rel (Imdur Ext Rel), 60 MG PO QAM Metoprolol Succinate (Metoprolol Succinate ER), 25 MG PO DAILY Nitroglycerin (Nitrostat), 0.4 MG UT PRN Simvastatin (Zocor), 40 MG PO QPM Scheduled PRN Alprazolam (Xanax), 0.25 MG PO HS PRN for Anxiety Tramadol (Ultram), 25 MG PO BID PRN for Pain Physical Exam Vital Signs Date Time Temp Pulse Resp B/P (MAP) Pulse Ox O2 Delivery O2 Flow Rate FiO2 07/13/17 16:13 Room Air 07/13/17 15:30 68 20 140/65 99 Room Air 07/13/17 14:09 64 115/66 73 104/63 74 121/74 07/13/17 13:45 98 Room Air 07/13/17 13:38 69 07/13/17 13:38 36.8 66 20 135/58 98 Room Air Physical Exam HEENT: Head - normocephalic. Resolving bruises, yellow in color, noted over right side of face. Pupils are equal, round, and reactive to light. Extraocular eye muscles are intact and sclera are anicteric. Ears - bilaterally patent canals with noninjected tympanic membranes and no evidence of hemotympanum. Nose - moist nasal mucosa without discharge. Mouth - moist buccal mucosa. Oropharynx is nonerythematous and there is no tonsillar exudate or edema noted. Neck: Supple; no JVD, nuchal rigidity, cervical lymphadenopathy, or auscultated bruits. Heart: Regular rate and rhythm. There is a normal S1 and S2 with no murmurs, clicks, or gallops appreciated. Lungs: Clear to auscultation bilaterally with soft crackles at lung bases. Abdomen: Soft, completely nontender, nondistended, with good bowel sounds. There are no palpable pulsatile masses or hepatosplenomegaly. There is no guarding, rigidity, or rebound noted. Extremities: No evidence of cyanosis, clubbing, or edema. There are easily palpable peripheral pulses. Neuro:The patient is awake and alert, oriented to day, time, and place. Medical Decision & Procedures ER Provider Diagnostic Interpretation: CHEST ONE VIEW PORTABLE CLINICAL HISTORY: sob dyspnea COMPARISON STUDY: 06/21/2017 FINDINGS: Mild stable cardiomegaly. Prior median sternotomy. Lungs are clear. Diaphragms smooth. IMPRESSION: No acute process. HEAD CT NONCONTRAST CT DOSE: 537.48 mGy.cm HISTORY: recent fall now dizzy, unsteady. hx of aneurysms. r/o bleed TECHNIQUE: Multiaxial CT images of the head were performed without the use of intravenous contrast. Automated exposure control was utilized for this study. A dose lowering technique was utilized adhering to the principles of ALARA. Comparison: Head CT 06/23/2017. Findings: The paranasal sinuses and mastoid air cells are clear. The calvarium and skull base are intact. There is no mass, hematoma, midline shift, acute infarct. White matter hypodensity is nonspecific but suggestive of microvascular ischemic change. The ventricles and sulci demonstrate mild age-related involutional changes. 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 Minimal right frontal scalp swelling has improved. Impression: No significant change compared to the prior study. No acute intracranial abnormality. 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 Laboratory Results 07/13/17 14:29 Red Blood Count 3.75, Mean Corpuscular Volume 97.6, Mean Corpuscular Hemoglobin 32.3, Mean Corpuscular Hemoglobin Concent 33.1, Mean Platelet Volume 9.9, Neutrophils (%) (Auto) 48.1, Lymphocytes (%) (Auto) 34.9, Monocytes (%) (Auto) 9.9, Eosinophils (%) (Auto) 6.3, Basophils (%) (Auto) 0.7, Neutrophils # (Auto) 3.51, Lymphocytes # (Auto) 2.55, Monocytes # (Auto) 0.72, Eosinophils # (Auto) 0.46, Basophils # (Auto) 0.05 07/13/17 14:29 Test 07/13/17 14:29 07/13/17 14:45 White Blood Count 7.30 K/uL (4.8-10.8) Red Blood Count 3.75 M/uL (4.2-5.4) Hemoglobin 12.1 g/dL (12.0-16.0) Hematocrit 36.6 % (37-47) Mean Corpuscular Volume 97.6 fL (80-100) Mean Corpuscular Hemoglobin 32.3 pg (25-34) Mean Corpuscular Hemoglobin Concent 33.1 g/dl (32-36) Platelet Count 244 K/uL (130-400) Mean Platelet Volume 9.9 fL (7.4-10.4) Neutrophils (%) (Auto) 48.1 % Lymphocytes (%) (Auto) 34.9 % Monocytes (%) (Auto) 9.9 % Eosinophils (%) (Auto) 6.3 % Basophils (%) (Auto) 0.7 % Neutrophils # (Auto) 3.51 K/uL (1.4-6.5) Lymphocytes # (Auto) 2.55 K/uL (1.2-3.4) Monocytes # (Auto) 0.72 K/uL (0.11-0.59) Eosinophils # (Auto) 0.46 K/uL (0-0.5) Basophils # (Auto) 0.05 K/uL (0-0.2) RDW Standard Deviation 48.6 fL (36.4-46.3) RDW Coefficient of Variation 13.6 % (11.5-14.5) Immature Granulocyte % (Auto) 0.1 % Immature Granulocyte # (Auto) 0.01 K/uL (0.00-0.02) Anion Gap 5.0 mmol/L (3-11) Est Creatinine Clear Calc Drug Dose 40.8 ml/min Estimated GFR () 49.2 Estimated GFR (Non- 42.5 BUN/Creatinine Ratio 26.8 (10-20) Calcium Level 8.7 mg/dl (8.5-10.1) Total Bilirubin 0.4 mg/dl (0.2-1) Aspartate Amino Transf (AST/SGOT) 14 U/L (15-37) Alanine Aminotransferase (ALT/SGPT) 18 U/L (12-78) Alkaline Phosphatase 84 U/L (45-117) Troponin I < 0.015 ng/ml (0-0.045) Total Protein 6.9 gm/dl (6.4-8.2) Albumin 3.3 gm/dl (3.4-5.0) Globulin 3.6 gm/dl (2.5-4.0) Albumin/Globulin Ratio 0.9 (0.9-2) Thyroid Stimulating Hormone (TSH) 0.672 uIu/ml (0.300-4.500) Valproic Acid (Depakene) Level 41 mcg/ml (50-100) Urine Color YELLOW Urine Appearance CLOUDY (CLEAR) Urine pH 5.0 (4.5-7.5) Urine Specific [place] 1.027 (1.000-1.030) Urine Protein NEG (NEG) Urine Glucose (UA) NEG (NEG) Urine Ketones NEG (NEG) Urine Occult Blood NEG (NEG) Urine Nitrite NEG (NEG) Urine Bilirubin NEG (NEG) Urine Urobilinogen NEG (NEG) Urine Leukocyte Esterase TRACE (NEG) Urine WBC (Auto) 5-10 /hpf (0-5) Urine RBC (Auto) 0-4 /hpf (0-4) Urine Hyaline Casts (Auto) 5-10 /lpf (0-5) Urine Epithelial Cells (Auto) >30 /lpf (0-5) Urine Bacteria (Auto) 2+ (NEG) ECG Indication: weakness Rate (beats per minute): 64 Rhythm: normal sinus Findings: no acute ischemic change, no ectopy, other (RBBB) ED Course 13:50: The patient was evaluated in room A12. A complete history and physical exam was performed. 14:05: The case was discussed with the attending, Dr. Ham. 14:20: Orthostatic vital signs normal 15:10: Reassessed patient. She is resting comfortably and reports no new complaints. Discussed lab and CT findings with patient. Patient and daughter were agreeable with admission. 15:26: Discussed the case with Dr. Duffy who will evaluate the patient further for admission. 15:29: Reassessed patient. She is asleep in her bed. Medical Decision Etiologies such as metabolic, infection, hypoglycemia, electrolyte abnormalities , cardiac sources, intracerebral event, toxicologic, neurologic, as well as others were entertained. . The patient is a 82 year old female who was sent to the emergency room by her PCP due to a 2 day history of lightheadedness, unsteady gait and SOBOE. Her CBC , CMP and TSH were unremarkable. Troponin level was negative. CXR and CT brain did not show any acute findings. UA was contaminated, but sent for culture. Given her gait instability and weakness of her right leg, she warrants admission for further workup to rule out a stroke that may be resulting in her new onset unsteadiness. This was discussed with Dr. Duffy who will evaluate her further for admission. Impression Primary Impression: Weakness Additional Impression: Unsteady gait Departure Information Referrals Irma Reid M.D. (PCP) Patient Instructions My [facility] Resident Tracking Resident Involvement: Resident Care Provided Care Provided: Adult ED Problem Qualifiers
--- NOTE | 2017-07-13 14:25 | EMERGENCY ROOM VISIT NOTE ---
History Report prepared by Sharon: Kamari Ellis Under the Supervision of: Dr. Lonnie Ham M.D. First contact with patient: 13:46 Chief Complaint: DIZZY Stated Complaint: GENERALIZED WEAKNESS Nursing Triage Summary: pt reports feeling dizzy and lightheaded for last 2-3 days went to pcp sent eher for eval of htn . bp is currently 135/58. and approx same for medic unit. staff at pcp said bp was 140/90. pt has old right shoulder injury causing weakness in right arm and unable to move it well. nothing new per pt is chronic pain 5/0- 10 scale now. pt has hx of 2 previous brain aneurysm not treated History of Present Illness HPI obtained by the Resident prior to my evaluation.The patient is an 82 year old female who presents to the Emergency Room with complaints of worsening dizziness and lightheadedness for the past couple of days. The patient was sent to the Emergency Department today after a referral from her primary care physician. Per the patient's daughter the patient has also been increasingly "unsteady on her feet" and having trouble with her balance. The daughter has been having to walk from room to room with the patient to avoid falls. The patient did have a falling episode two weeks ago and came to the emergency department for a head CT. This CT was unremarkable. She does have a history of brain aneurysm. The patient's home-care nurse was also concerned for worsening shortness of breath upon exertion. The patient denies any current chest pain, shortness of breath, abdominal pain, or vertigo. She recently had her Metoprolol prescription cut from 100mg daily to 25mg. Source of History: patient, family Onset: Couple of days DIETITIAN RESEARCH Position: other (Global) Quality: other (Dizzy/Light Headed) Timing: worsening Associated Symptoms: + SOB (Positive via home nurse, negative via patient), No chest pain, No nausea Review of Systems See HPI for pertinent positives & negatives. A total of 10 systems reviewed and were otherwise negative. Past Medical & Surgical Medical Problems: (1) Brain aneurysm (2) Heart disease (3) Hypertension Surgical Problems: (1) H/O heart artery stent (2) Hx of CABG (3) Hx of cholecystectomy Family History FH: heart disease Hypertension Social History Smoking Status: Current Every Day Smoker Alcohol Use: none Housing Status: lives alone Occupation Status: retired Current/Historical Medications Scheduled Acetaminophen (Tylenol), 650 MG PO QAM Acetaminophen (Tylenol), 975 MG PO QPM Aspirin (Aspirin Ec), 81 MG PO DAILY Clopidogrel (Plavix), 75 MG PO DAILY Divalproex Sodium (Depakote Delay Rel), 250 MG PO QAM Duloxetine Hcl (Cymbalta), 60 MG PO DAILY Famotidine (Pepcid), 20 MG PO QAM Irbesartan (Avapro), 75 MG PO DAILY Isosorbide Mononitrate Ext Rel (Imdur Ext Rel), 60 MG PO QAM Metoprolol Succinate (Metoprolol Succinate ER), 25 MG PO DAILY Nitroglycerin (Nitrostat), 0.4 MG UT PRN Simvastatin (Zocor), 40 MG PO QPM Scheduled PRN Alprazolam (Xanax), 0.25 MG PO HS PRN for Anxiety Tramadol (Ultram), 25 MG PO BID PRN for Pain Allergies Coded Allergies: Donepezil (Verified Allergy, Intermediate, dirrhea, 07/13/17) Penicillins (Verified Allergy, Unknown, SWELLING, 07/13/17) Sulfa Antibiotics (Verified Allergy, Unknown, SWELLING, 07/13/17) Physical Exam Vital Signs Date Time Temp Pulse Resp B/P (MAP) Pulse Ox O2 Delivery O2 Flow Rate FiO2 07/13/17 17:23 67 20 140/68 98 Room Air 07/13/17 16:13 Room Air 07/13/17 15:30 68 20 140/65 99 Room Air 07/13/17 14:09 64 115/66 73 104/63 74 121/74 07/13/17 13:45 98 Room Air 07/13/17 13:38 69 07/13/17 13:38 36.8 66 20 135/58 98 Room Air Physical Exam GENERAL: Patient is in no acute distress. HEENT: No acute trauma, normocephalic atraumatic, mucous membranes are DRY, no nasal congestion, no scleral icterus. NECK: No stridor, no adenopathy, no meningismus, trachea is midline. LUNGS: Clear to auscultation bilaterally, no wheeze, no rhonchi, breath sounds equal. HEART: Without murmurs gallops or rubs, regular rate and rhythm. ABDOMEN: Soft, nontender, bowel sounds positive, no hernias, no peritonitis. EXTREMITIES: No cyanosis or edema, no signs for acute trauma. No cellulitis. NEUROLOGIC: No facial droop or speech slur, right leg is weaker than the left with testing. Right arm strength cannot be assessed secondary to prior injury. Patient is awake, alert, and oriented x3. SKIN: No rash, no jaundice, no diaphoresis. Medical Decision & Procedures ER Provider Diagnostic Interpretation: Radiology results as stated below per my review and radiologist interpretation: CHEST ONE VIEW PORTABLE CLINICAL HISTORY: sob dyspnea COMPARISON STUDY: 06/21/2017 FINDINGS: Mild stable cardiomegaly. Prior median sternotomy. Lungs are clear. Diaphragms smooth. IMPRESSION: No acute process. The above report was generated using voice recognition software. It may contain grammatical, syntax or spelling errors. Electronically signed by: Joseph Davis M.D. 07/13/2017 2:39 PM Dictated Date/Time: 07/13/2017 2:[address] CT DOSE: 537.48 mGy.cm HISTORY: recent fall now dizzy, unsteady. hx of aneurysms. r/o bleed TECHNIQUE: Multiaxial CT images of the head were performed without the use of intravenous contrast. Automated exposure control was utilized for this study. A dose lowering technique was utilized adhering to the principles of ALARA. Comparison: Head CT 06/23/2017. Findings: The paranasal sinuses and mastoid air cells are clear. The calvarium and skull base are intact. There is no mass, hematoma, midline shift, acute infarct. White matter hypodensity is nonspecific but suggestive of microvascular ischemic change. The ventricles and sulci demonstrate mild age-related involutional changes. 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 Minimal right frontal scalp swelling has improved. Impression: No significant change compared to the prior study. No acute intracranial abnormality. 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 Electronically signed by: Ulysses Villeda M.D. 07/13/2017 3:04 PM Dictated Date/Time: 07/13/2017 2:58 PM Laboratory Results 07/13/17 14:29 Red Blood Count 3.75, Mean Corpuscular Volume 97.6, Mean Corpuscular Hemoglobin 32.3, Mean Corpuscular Hemoglobin Concent 33.1, Mean Platelet Volume 9.9, Neutrophils (%) (Auto) 48.1, Lymphocytes (%) (Auto) 34.9, Monocytes (%) (Auto) 9.9, Eosinophils (%) (Auto) 6.3, Basophils (%) (Auto) 0.7, Neutrophils # (Auto) 3.51, Lymphocytes # (Auto) 2.55, Monocytes # (Auto) 0.72, Eosinophils # (Auto) 0.46, Basophils # (Auto) 0.05 07/13/17 14:29 Test 07/13/17 14:29 07/13/17 14:45 White Blood Count 7.30 K/uL (4.8-10.8) Red Blood Count 3.75 M/uL (4.2-5.4) Hemoglobin 12.1 g/dL (12.0-16.0) Hematocrit 36.6 % (37-47) Mean Corpuscular Volume 97.6 fL (80-100) Mean Corpuscular Hemoglobin 32.3 pg (25-34) Mean Corpuscular Hemoglobin Concent 33.1 g/dl (32-36) Platelet Count 244 K/uL (130-400) Mean Platelet Volume 9.9 fL (7.4-10.4) Neutrophils (%) (Auto) 48.1 % Lymphocytes (%) (Auto) 34.9 % Monocytes (%) (Auto) 9.9 % Eosinophils (%) (Auto) 6.3 % Basophils (%) (Auto) 0.7 % Neutrophils # (Auto) 3.51 K/uL (1.4-6.5) Lymphocytes # (Auto) 2.55 K/uL (1.2-3.4) Monocytes # (Auto) 0.72 K/uL (0.11-0.59) Eosinophils # (Auto) 0.46 K/uL (0-0.5) Basophils # (Auto) 0.05 K/uL (0-0.2) RDW Standard Deviation 48.6 fL (36.4-46.3) RDW Coefficient of Variation 13.6 % (11.5-14.5) Immature Granulocyte % (Auto) 0.1 % Immature Granulocyte # (Auto) 0.01 K/uL (0.00-0.02) Anion Gap 5.0 mmol/L (3-11) Est Creatinine Clear Calc Drug Dose 40.8 ml/min Estimated GFR () 49.2 Estimated GFR (Non- 42.5 BUN/Creatinine Ratio 26.8 (10-20) Calcium Level 8.7 mg/dl (8.5-10.1) Total Bilirubin 0.4 mg/dl (0.2-1) Aspartate Amino Transf (AST/SGOT) 14 U/L (15-37) Alanine Aminotransferase (ALT/SGPT) 18 U/L (12-78) Alkaline Phosphatase 84 U/L (45-117) Troponin I < 0.015 ng/ml (0-0.045) Total Protein 6.9 gm/dl (6.4-8.2) Albumin 3.3 gm/dl (3.4-5.0) Globulin 3.6 gm/dl (2.5-4.0) Albumin/Globulin Ratio 0.9 (0.9-2) Thyroid Stimulating Hormone (TSH) 0.672 uIu/ml (0.300-4.500) Valproic Acid (Depakene) Level 41 mcg/ml (50-100) Urine Color YELLOW Urine Appearance CLOUDY (CLEAR) Urine pH 5.0 (4.5-7.5) Urine Specific [place] 1.027 (1.000-1.030) Urine Protein NEG (NEG) Urine Glucose (UA) NEG (NEG) Urine Ketones NEG (NEG) Urine Occult Blood NEG (NEG) Urine Nitrite NEG (NEG) Urine Bilirubin NEG (NEG) Urine Urobilinogen NEG (NEG) Urine Leukocyte Esterase TRACE (NEG) Urine WBC (Auto) 5-10 /hpf (0-5) Urine RBC (Auto) 0-4 /hpf (0-4) Urine Hyaline Casts (Auto) 5-10 /lpf (0-5) Urine Epithelial Cells (Auto) >30 /lpf (0-5) Urine Bacteria (Auto) 2+ (NEG) Laboratory results reviewed by me. ECG Indication: weakness Rhythm: normal sinus Findings: nonspecific-ST abn, RBBB, no ectopy, other (No dysrythmia ) ED Course 1350: The patient was evaluated by the Resident at this time. 1408: The patient was evaluated in room A12. A complete history and physical exam was performed. 1419: The patient's orthostatic vitals are negative. 1525: I discussed the case with Dr. Tati OSEI Hospitalist at this time. He will evaluated the patient for further treatment. Medical Decision Differential Diagnosis includes; Stroke, intracranial bleed, dehydration, electrolyte imbalance, anemia, UTI, high Depakote level. There is no leukocytosis or concerning anemia. No significant electrolyte abnormality, kidney failure or hepatitis. The patient appears to be in a euthyroid state. Orthostatic vital signs are negative. Brain CT shows no acute bleed or mass effect. EKG shows a normal sinus rhythm, no acute ischemia. Cardiac enzyme testing 1 is not consistent with acute cardiac injury. Chest x-ray does not show pneumonia or CHF. Urinalysis does not show infection. Valproic acid level is not toxic. The patient presents with unsteadiness and difficulty with her gait. This is a change for her in the last 2 days. Her workup here is benign. I am concerned though that she may have suffered a small stroke. I do think further testing and workup is warranted. She is clearly not a candidate for TPA as this has been ongoing now for at least 2 days. I spoke to case management. The on-call hospitalist was consulted. The patient and her family are aware of all the findings. Medication Reconcilliation Current Medication List: was personally reviewed by me Blood Pressure Screening Patient's blood pressure: Elevated blood pressure Blood pressure disposition: Elevated BP felt to be situational Consults Time Called: 1525 Consulting Physician: Dr. Tati OSEI Hospitalist Returned Call: 1525 I discussed the case with Dr. Tati OSEI Hospitalstaci at this time. He will evaluated the patient for further treatment. Impression Primary Impression: Weakness Additional Impressions: Dizziness Ambulatory dysfunction Scribe Attestation The scribe's documentation has been prepared under my direction and personally reviewed by me in its entirety. I confirm that the note above accurately reflects all work, treatment, procedures, and medical decision making performed by me. Departure Information Dispostion Being Evaluated By Hospitalist Referrals Irma Reid M.D. (PCP) Patient Instructions My [facility] Stroke History Time Last Known Well 2 days DIETITIAN RESEARCH Stroke t-PA Criteria Reviewed Does NOT meet criteria for t-PA Reason t-PA Not Given Treatment not indicated Problem Qualifiers
[2017-07-13 14:39] LABS: BASO % 0.7 %; BASO ABS # 0.05 K/uL (0-0.2); EOS % 6.3 %; EOS ABS # 0.46 K/uL (0-0.5); HEMATOCRIT 36.6 % (37-47); HEMOGLOBIN 12.1 g/dL (12.0-16.0); IG# 0.01 K/uL (0.00-0.02); LYMPH % 34.9 %; LYMPH ABS # 2.55 K/uL (1.2-3.4); MEAN CELL VOLUME 97.6 fL (80-100); MEAN CORPUSCULAR HEMOGLOBIN 32.3 pg (25-34); MEAN CORPUSCULAR HGB CONC 33.1 g/dl (32-36); MEAN PLATELET VOLUME 9.9 fL (7.4-10.4); MONO % 9.9 %; MONO ABS # 0.72 K/uL (0.11-0.59); NEUT % 48.1 %; NEUT ABS # 3.51 K/uL (1.4-6.5); PLATELET COUNT 244 K/uL (130-400); RED CELL DISTRIBUTION WIDTH CV 13.6 % (11.5-14.5); RED CELL DISTRIBUTION WIDTH SD 48.6 fL (36.4-46.3)
--- NOTE | 2017-07-13 14:41 | DIAGNOSTIC IMAGING REPORT ---
CHEST ONE VIEW PORTABLE CLINICAL HISTORY: sob dyspnea COMPARISON STUDY: 06/21/2017 FINDINGS: Mild stable cardiomegaly. Prior median sternotomy. Lungs are clear. Diaphragms smooth. IMPRESSION: No acute process. The above report was generated using voice recognition software. It may contain grammatical, syntax or spelling errors. Electronically signed by: Joseph Davis M.D. 07/13/2017 2:39 PM Dictated Date/Time: 07/13/2017 2:39 PM
[2017-07-13 14:56] LABS: ALBUMIN 3.3 gm/dl (3.4-5.0); ALT/SGPT 18 U/L (12-78); AST/SGOT 14 U/L (15-37); BLOOD UREA NITROGEN 32 mg/dl (7-18); CALCIUM 8.7 mg/dl (8.5-10.1); CARBON DIOXIDE 28 mmol/L (21-32); CREATININE 1.19 mg/dl (0.60-1.20); GLUCOSE 90 mg/dl (70-99); POTASSIUM 4.3 mmol/L (3.5-5.1); SODIUM 139 mmol/L (136-145)
--- NOTE | 2017-07-13 15:05 | DIAGNOSTIC IMAGING REPORT ---
HEAD CT NONCONTRAST CT DOSE: 537.48 mGy.cm HISTORY: recent fall now dizzy, unsteady. hx of aneurysms. r/o bleed TECHNIQUE: Multiaxial CT images of the head were performed without the use of intravenous contrast. Automated exposure control was utilized for this study. A dose lowering technique was utilized adhering to the principles of ALARA. Comparison: Head CT 06/23/2017. Findings: The paranasal sinuses and mastoid air cells are clear. The calvarium and skull base are intact. There is no mass, hematoma, midline shift, acute infarct. White matter hypodensity is nonspecific but suggestive of microvascular ischemic change. The ventricles and sulci demonstrate mild age-related involutional changes. 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 Minimal right frontal scalp swelling has improved. Impression: No significant change compared to the prior study. No acute intracranial abnormality. 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 Electronically signed by: Ulysses Villeda M.D. 07/13/2017 3:04 PM Dictated Date/Time: 07/13/2017 2:58 PM
[2017-07-13 15:07] LABS: ALKALINE PHOSPHATASE 84 U/L (45-117); TOTAL PROTEIN 6.9 gm/dl (6.4-8.2)
[2017-07-13] MEDS ORDERED: TRAM-10 PO (15:35)
[2017-07-13 16:13] VITALS: Ht 170.2 cm; Wt 82.8 kg
[2017-07-13] MEDS ORDERED: MAGNESIUM HYDROXIDE SUSP 30 ML UDC PO PRN (16:30)
[2017-07-13] MEDS ORDERED: ACETAMINOPHEN 325 MG TAB PO PRN (16:30)
[2017-07-13] MEDS ORDERED: PHARMACIST DISCHARGE MED REC CONSULT PRN (16:30)
[2017-07-13] MEDS ORDERED: ONDANSETRON INJ 2 MG/ML 2 ML VIAL IV PRN (16:30)
[2017-07-13] MEDS ORDERED: TRAMADOL HCL 50 MG TAB PO PRN (16:30)
[2017-07-13] MEDS ORDERED: ALUMINUM/MAGNESIUM/SIMETH (MAALOX MAX) 30 ML UDC PO PRN (16:30)
[2017-07-13] MEDS ORDERED: ALPRAZOLAM 0.25 MG TAB PO PRN (16:30)
[2017-07-13] MEDS ORDERED: POLYETHYLENE (MIRALAX) 17 GM PACK PO PRN (16:30)
[2017-07-13] MEDS ORDERED: TPRSR25 PO (16:47)
[2017-07-13] MEDS ORDERED: IV FLUIDS COMPLETED PRN (17:00)
--- NOTE | 2017-07-13 17:10 | History and Physical ---
History & Physical Date & Time of Service: Jul 13, 2017 at 16:51 Chief Complaint: Generalized Weakness Primary Care Physician: Irma Reid M.D. History of Present Illness Source: patient, family (daughter at bedside), clinic records, hospital records This is an 82 y/o female with a history of CAD, HTN, HLD, h/o [place] s/p stents, CABG x 3, 2 inoperable brain aneurysms, depression/anxiety, migraine, PVD, and GERD who presented to the ED on 07/13 with weakness, lightheadedness and unsteady gait. The patient states that she has had lightheadedness and dizziness for the last few days upon standing and while ambulating. She also reports weakness in her legs and an unsteady gait. She lives at home with her daughter , who reports that the patient lately has required more assistance. The patient complains of some shortness of breath and dyspnea on exertion. The patient notes a previous injury to her right shoulder and that she cannot raise her right arm even after having a total shoulder arthroplasty. The patient denies fevers, chills, sweats, chest pain, palpitations, claudication, cough, wheezing, nausea, vomiting, abdominal pain, dysuria, hematuria, urinary retention, paralysis, numbness and tingling. Past Medical/Surgical History Medical Problems: (1) Brain aneurysm x2 Status: Chronic (2) Heart disease Status: Chronic (3) Hypertension Status: Chronic CAD H/o [place] HLD Depression/anxiety Migraine PVD GERD Surgical Problems: (1) H/O heart artery stent Status: Chronic (2) Hx of CABG Status: Chronic (3) Hx of cholecystectomy Status: Chronic Family History Breast cancer FH: heart disease Hypertension Stroke Social History Smoking Status: Current Every Day Smoker (07/07 to 07/06 ppd) Smokeless Tobacco Use: No Alcohol Use: none Drug Use: none Marital Status: Housing status: lives with family (with daughter) Occupational Status: retired Allergies Coded Allergies: Donepezil (Verified Allergy, Intermediate, dirrhea, 07/13/17) Penicillins (Verified Allergy, Unknown, SWELLING, 07/13/17) Sulfa Antibiotics (Verified Allergy, Unknown, SWELLING, 07/13/17) Home Medications Scheduled Acetaminophen (Tylenol), 650 MG PO QAM Acetaminophen (Tylenol), 975 MG PO QPM Aspirin (Aspirin Ec), 81 MG PO DAILY Clopidogrel (Plavix), 75 MG PO DAILY Divalproex Sodium (Depakote Delay Rel), 250 MG PO QAM Duloxetine Hcl (Cymbalta), 60 MG PO DAILY Famotidine (Pepcid), 20 MG PO QAM Irbesartan (Avapro), 75 MG PO DAILY Isosorbide Mononitrate Ext Rel (Imdur Ext Rel), 60 MG PO QAM Metoprolol Succinate (Metoprolol Succinate ER), 25 MG PO DAILY Nitroglycerin (Nitrostat), 0.4 MG UT PRN Simvastatin (Zocor), 40 MG PO QPM Scheduled PRN Alprazolam (Xanax), 0.25 MG PO HS PRN for Anxiety Tramadol (Ultram), 25 MG PO BID PRN for Pain Review of Systems Constitutional: No fever, No chills, No sweats Eyes: No worsening of vision, No eye pain, No diplopia ENT: No hearing loss, No nasal symptoms, No trouble swallowing Respiratory: +SOB, KAUR. No cough, No wheezing Cardiovascular: No chest pain, No claudication, No palpitations Abdomen: No pain, No nausea, No vomiting Musculoskeletal: No joint pain, No muscle pain, No swelling Genitourinary - Female: No dysuria, No urinary retention, No hematuria Neurologic: +Weakness in legs. No paralysis, No numbness/tingling Integumentary: No rash, No itch, No color change Physical Exam Vital Signs Date Time Temp Pulse Resp B/P (MAP) Pulse Ox O2 Delivery O2 Flow Rate FiO2 07/13/17 16:13 Room Air 07/13/17 15:30 68 20 140/65 99 Room Air 07/13/17 14:09 64 115/66 73 104/63 74 121/74 07/13/17 13:45 98 Room Air 07/13/17 13:38 69 07/13/17 13:38 36.8 66 20 135/58 98 Room Air General appearance: Well-developed, well-nourished, no apparent distress Head: Normocephalic, atraumatic Eyes: Normal inspection, PERRL, EOMI ENT: Normal ENT inspection, hearing grossly normal, pharynx normal Neck: Supple, no JVD, trachea midline Respiratory/Chest: Lungs clear to auscultation, normal breath sounds, no respiratory distress Cardiovascular: +Systolic murmur. Regular rate & rhythm, no gallop Abdomen/GI: Normal bowel sounds, non-tender, soft Extremities/Musculoskeletal: Normal inspection, no calf tenderness, no pedal edema Neurological/Psych: +Unable to test RUE due to previous injury. No facial droop, slurred speech. Desk Sergeant strengths equal. Strength equal as tested in lower extremities. Alert, normal mood/affect, oriented x 3 Skin: Normal color, warm/dry, no rash Diagnostics Laboratory Results Results Past 24 Hours Test 07/13/17 14:29 07/13/17 14:45 07/13/17 16:30 Range/Units White Blood Count 7.30 4.8-10.8 K/uL Red Blood Count 3.75 4.2-5.4 M/uL Hemoglobin 12.1 12.0-16.0 g/dL Hematocrit 36.6 37-47 % Mean Corpuscular Volume 97.6 80-100 fL Mean Corpuscular Hemoglobin 32.3 25-34 pg Mean Corpuscular Hemoglobin Concent 33.1 32-36 g/dl Platelet Count 244 130-400 K/uL Mean Platelet Volume 9.9 7.4-10.4 fL Neutrophils (%) (Auto) 48.1 % Lymphocytes (%) (Auto) 34.9 % Monocytes (%) (Auto) 9.9 % Eosinophils (%) (Auto) 6.3 % Basophils (%) (Auto) 0.7 % Neutrophils # (Auto) 3.51 1.4-6.5 K/uL Lymphocytes # (Auto) 2.55 1.2-3.4 K/uL Monocytes # (Auto) 0.72 0.11-0.59 K/uL Eosinophils # (Auto) 0.46 0-0.5 K/uL Basophils # (Auto) 0.05 0-0.2 K/uL RDW Standard Deviation 48.6 36.4-46.3 fL RDW Coefficient of Variation 13.6 11.5-14.5 % Immature Granulocyte % (Auto) 0.1 % Immature Granulocyte # (Auto) 0.01 0.00-0.02 K/uL Sodium Level 139 136-145 mmol/L Potassium Level 4.3 3.5-5.1 mmol/L Chloride Level 106 98-107 mmol/L Carbon Dioxide Level 28 21-32 mmol/L Anion Gap 5.0 3-11 mmol/L Blood Urea Nitrogen 32 7-18 mg/dl Creatinine 1.19 0.60-1.20 mg/dl Est Creatinine Clear Calc Drug Dose 40.8 ml/min Estimated GFR () 49.2 Estimated GFR (Non- 42.5 BUN/Creatinine Ratio 26.8 10-20 Random Glucose 90 70-99 mg/dl Calcium Level 8.7 8.5-10.1 mg/dl Total Bilirubin 0.4 0.2-1 mg/dl Aspartate Amino Transf (AST/SGOT) 14 15-37 U/L Alanine Aminotransferase (ALT/SGPT) 18 12-78 U/L Alkaline Phosphatase 84 45-117 U/L Troponin I < 0.015 0-0.045 ng/ml Total Protein 6.9 6.4-8.2 gm/dl Albumin 3.3 3.4-5.0 gm/dl Globulin 3.6 2.5-4.0 gm/dl Albumin/Globulin Ratio 0.9 0.9-2 Thyroid Stimulating Hormone (TSH) 0.672 0.300-4.500 uIu/ml Valproic Acid (Depakene) Level 41 50-100 mcg/ml Urine Color YELLOW Urine Appearance CLOUDY CLEAR Urine pH 5.0 4.5-7.5 Urine Specific [place] 1.027 1.000-1.030 Urine Protein NEG NEG Urine Glucose (UA) NEG NEG Urine Ketones NEG NEG Urine Occult Blood NEG NEG Urine Nitrite NEG NEG Urine Bilirubin NEG NEG Urine Urobilinogen NEG NEG Urine Leukocyte Esterase TRACE NEG Urine WBC (Auto) 5-10 0-5 /hpf Urine RBC (Auto) 0-4 0-4 /hpf Urine Hyaline Casts (Auto) 5-10 0-5 /lpf Urine Epithelial Cells (Auto) >30 0-5 /lpf Urine Bacteria (Auto) 2+ NEG Microbiology Results 07/13/17 Urine Culture, Received Pending Diagnostic Radiology Reviewed the following studies and agree with interpretation as follows: HEAD CT NONCONTRAST CT DOSE: 537.48 mGy.cm HISTORY: recent fall now dizzy, unsteady. hx of aneurysms. r/o bleed TECHNIQUE: Multiaxial CT images of the head were performed without the use of intravenous contrast. Automated exposure control was utilized for this study. A dose lowering technique was utilized adhering to the principles of ALARA. Comparison: Head CT 06/23/2017. Findings: The paranasal sinuses and mastoid air cells are clear. The calvarium and skull base are intact. There is no mass, hematoma, midline shift, acute infarct. White matter hypodensity is nonspecific but suggestive of microvascular ischemic change. The ventricles and sulci demonstrate mild age-related involutional changes. 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 Minimal right frontal scalp swelling has improved. Impression: No significant change compared to the prior study. No acute intracranial abnormality. 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 CHEST ONE VIEW PORTABLE CLINICAL HISTORY: sob dyspnea COMPARISON STUDY: 06/21/2017 FINDINGS: Mild stable cardiomegaly. Prior median sternotomy. Lungs are clear. Diaphragms smooth. IMPRESSION: No acute process. EKG Reviewed EKG and agree with interpretation as follows: 64 bpm, NSR, RBBB Impression Assessment and Plan 82 y/o female with a history of CAD, HTN, HLD, h/o [place] s/p stents, CABG x 3, 2 inoperable brain aneurysms, depression/anxiety, migraine, PVD, and GERD who presented to the ED on 07/13 with weakness, lightheadedness and unsteady gait. Pt arrived afebrile, VSS. Head CT negative for acute disease, shows stable 9 mm R MCA bifurcation aneurysm. CXR negative. EKG no ischemic changes. UA with likely contamination but urine culture sent. Valproic acid level low at 41. Weakness, unsteady gait, lightheaded--low suspicion for stroke. ED physician had noted RLE weakness, although appeared equal to LLE to my testing. Will r/o stroke -Admit to telemetry for observation -MRI brain, MRA head and neck. If MRA neck positive for plaques, can order carotid ultrasound -Stroke protocol, neuro checks -Continue ASA, Plavix, statin, BB -Check fasting lipid panel, HgbA1c for risk stratification -PT/OT evaluate and treat -Urine culture pending, although UA likely represents contamination vs UTI -TSH WNL CAD, h/o [place], cardiac stents, CABG, HTN, HLD--stable -Continue ASA 81 mg PO qd, Plavix 75 mg PO qd, metoprolol succinate 25 mg PO qd , irbesartan 75 mg PO qd, Imdur 60 mg PO qd, Zocor 40 mg PO hs Brain aneurysms--stable Depression/anxiety -Continue Cymbalta 60 mg PO qd and Xanax 0.25 mg PO hs prn Migraine -Continue Depakote 250 mg PO qd PVD s/p femoral stent--stable GERD -Continue Pepcid 20 mg PO qd DVT prophylaxis -Enoxaparin 40 mg SC q24h -JUSTICE hose and SCDs Code Status -Level I, FULL RESUSCITATION STATUS Resident Physician Supervision Note: Pt evaluated independently. I discussed the case with the PA and agree with the findings and plan as documented in the note. Any exceptions or clarifications are listed here: 82 y/o F CAD, HTN, HLD, brain aneurysms, depression, PVD, GERD - presenting with generalized weakness and impaired balance. Initial eval in the ER was suspicious for RLE weakness although we were not able to reproduce these results. OE AAO x 2 S1,2 R + murmur CTAB NT, ND Full neuro exam did not yield any focal deficits - RUE ROM is impaired due to previous injury P: She is admitted with a TIA protocol - MRI/MRA are pending - pt normally takes ASA, Plavix which we will continue - will hold ARB - B charisma and Imdur continued due to CAD She has a history of aneurysm - no indication of ICH on CT Documented By: Augustin Duffy Level of Care Telemetry Advanced Directives Existing Living Will: Yes Existing Power of Powertrain Control Systems Engineer: Yes Resuscitation Status FULL RESUSCITATION VTE Prophylaxis VTE Risk Assessment Done? Y/N: Yes Risk Level: Moderate Given or contraindicated: Enoxaparin (Lovenox)SQ, T.E.D. Stockings, SCD's
[2017-07-13] MEDS ORDERED: SODIUM CHLORIDE 0.9% 1000ML 1,000 ML IV SCH (18:45)
[2017-07-13 18:46] VITALS: BP 156/75; PULSE 62; TEMP 36.4; O2SAT 96
--- NOTE | 2017-07-13 20:36 | DIAGNOSTIC IMAGING REPORT ---
MR ANGIOGRAPHY OF THE [place] NO CONTRAST CLINICAL HISTORY: Stroke - Attention to [place] COMPARISON STUDY: Noncontrast head CT dated 07/13/2017 A 3-D [id number] MR angiographic sequence of the [place] was performed. Both the source and projection images were reviewed. There is an 8.5 mm aneurysm of the right middle cerebral artery at the sylvian fissure bifurcation. There is a 2 mm aneurysm of the cavernous right internal carotid. There is a 4 mm aneurysm of the left cavernous carotid. There are no major intracranial branch occlusions. There is no evidence of major intracranial stenosis. IMPRESSION: 1. No major intracranial branch occlusions 2. 8.5 mm aneurysm of the right MCA bifurcation 3. 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 4 mm aneurysm of the left cavernous carotid Electronically signed by: Bruce Lee M.D. 07/13/2017 8:34 PM Dictated Date/Time: 07/13/2017 8:29 PM
--- NOTE | 2017-07-13 20:49 | DIAGNOSTIC IMAGING REPORT ---
MRI OF THE BRAIN WITHOUT CONTRAST CLINICAL HISTORY: Stroke LEG WEAKNESS. LIGHTHEADEDNESS. COMPARISON STUDY: Noncontrast head CT dated 07/13/2017 FINDINGS: Sagittal T1, axial diffusion, proton density and T2 weighted axial, coronal FLAIR, and axial T1-weighted images were acquired. No intra or extra-axial mass lesions are visualized Axial diffusion-weighted images reveal no evidence of acute or subacute infarction. There is no evidence of ventricular dilatation. Proton density T2-weighted and FLAIR images reveal scattered foci of increased T2 signal within the white matter, likely on a small vessel basis. There is an 8.5 mm flow void in the region of the right MCA bifurcation. The findings are consistent with the patient's known aneurysm. There are mild inflammatory changes present within the left frontal and sphenoid sinus. IMPRESSION: 1. No acute intracranial findings 2. No evidence of intracranial mass 3. No evidence of acute or subacute infarction 4. 8.5 mm aneurysm in the region of the right MCA bifurcation Electronically signed by: Bruce Lee M.D. 07/13/2017 8:48 PM Dictated Date/Time: 07/13/2017 8:45 PM
[2017-07-13] MEDS ORDERED: SIMVASTATIN 40 MG TAB PO SCH (21:00)
[2017-07-13] MEDS ORDERED: ACETAMINOPHEN 325 MG TAB PO SCH (21:00)
[2017-07-13] MEDS ORDERED: GADAVIST IV PRN (21:00)
[2017-07-13] MEDS ORDERED: ENOXAPARIN 40 MG/0.4 ML SYR SC SCH (21:00)
--- NOTE | 2017-07-13 21:16 | DIAGNOSTIC IMAGING REPORT ---
NECK MRA HISTORY: Stroke TECHNIQUE: [id number] and gadolinium-enhanced MRA of the neck was performed both before and after the intravenous administration of contrast. All measurements were calculated based on NASCET criteria. The patient was injected with 8 cc of intravenous Gadavist. COMPARISON STUDY: None. FINDINGS: The study is mildly limited from a technical standpoint secondary to patient motion. The aortic arch and proximal great vessels are suboptimally evaluated, but appear to be patent.. There is no significant stenosis, occlusion, or dissection identified within the bilateral common carotid, internal carotid, or vertebral arteries. There is an 8.5 mm aneurysm at the level of the right middle cerebral artery bifurcation. IMPRESSION: 1. Technically limited study 2. No evidence of common carotid, internal carotid or vertebral artery stenosis 3. 8.5 mm aneurysm at the level of the right middle cerebral artery bifurcation Electronically signed by: Bruce Lee M.D. 07/13/2017 9:15 PM Dictated Date/Time: 07/13/2017 9:11 PM
[2017-07-13 23:06] VITALS: BP 149/62; PULSE 59; TEMP 37; O2SAT 96
[2017-07-14] VITALS (8 sets, daily range): BP systolic 122–154; BP diastolic 62–73; PULSE 54–70; TEMP 36.6–36.7; O2SAT 92–95
[2017-07-14 06:35] LABS: HEMOGLOBIN A1C 5.9 % (4.5-5.6)
[2017-07-14 06:53] LABS: HEMATOCRIT 37.9 % (37-47); HEMOGLOBIN 12.8 g/dL (12.0-16.0); MEAN CELL VOLUME 95.7 fL (80-100); MEAN CORPUSCULAR HEMOGLOBIN 32.3 pg (25-34); MEAN CORPUSCULAR HGB CONC 33.8 g/dl (32-36); MEAN PLATELET VOLUME 10.1 fL (7.4-10.4); PLATELET COUNT 218 K/uL (130-400); RED CELL DISTRIBUTION WIDTH CV 13.3 % (11.5-14.5); RED CELL DISTRIBUTION WIDTH SD 46.1 fL (36.4-46.3); WHITE BLOOD COUNT 6.77 K/uL (4.8-10.8)
[2017-07-14 07:29] LABS: CALCIUM 8.7 mg/dl (8.5-10.1); CREATININE 1.11 mg/dl (0.60-1.20); POTASSIUM 4.3 mmol/L (3.5-5.1)
[2017-07-14] MEDS ORDERED: DULOXETINE HCL 60 MG CAP PO SCH (09:00)
[2017-07-14] MEDS ORDERED: IRBESARTAN 75 MG TAB PO SCH (09:00)
[2017-07-14] MEDS ORDERED: DIVALPROEX SODIUM 250 MG DELAY REL TAB PO SCH (09:00)
[2017-07-14] MEDS ORDERED: ACETAMINOPHEN 325 MG TAB PO SCH (09:00)
[2017-07-14] MEDS ORDERED: FAMOTIDINE 20 MG TAB PO SCH (09:00)
[2017-07-14] MEDS ORDERED: CLOPIDOGREL BISULFATE 75 MG TAB PO SCH (09:00)
[2017-07-14] MEDS ORDERED: ASPIRIN 81 MG ECTAB PO SCH (09:00)
[2017-07-14] MEDS ORDERED: METOPROLOL SUCC 25MG EXT REL TAB PO SCH (09:00)
[2017-07-14] MEDS ORDERED: ISOSORBIDE MONONITRATE 60 MG TABCR PO SCH (09:00)
--- NOTE | 2017-07-14 09:11 | Hospitalist Progress Note ---
Hospitalist Progress Note Date of Service Jul 14, 2017. Objective Vital Signs Date Time Temp Pulse Resp B/P (MAP) Pulse Ox O2 Delivery O2 Flow Rate FiO2 07/14/17 07:22 70 07/14/17 07:20 36.7 54 18 154/73 (100) 92 Room Air 07/14/17 04:00 Room Air 07/14/17 03:53 36.6 60 16 131/71 (91) 95 Room Air 07/14/17 00:00 Room Air 07/13/17 23:06 37.0 59 18 149/62 (91) 96 Room Air 07/13/17 20:00 Room Air 07/13/17 18:46 36.4 62 18 156/75 (102) 96 Room Air 07/13/17 17:23 67 20 140/68 98 Room Air 07/13/17 16:13 Room Air 07/13/17 15:30 68 20 140/65 99 Room Air 07/13/17 14:09 64 115/66 73 104/63 74 121/74 07/13/17 13:45 98 Room Air 07/13/17 13:38 69 07/13/17 13:38 36.8 66 20 135/58 98 Room Air Laboratory Results Last 24 Hours Test 07/13/17 14:29 07/13/17 14:45 07/14/17 06:36 White Blood Count 7.30 K/uL 6.77 K/uL Red Blood Count 3.75 M/uL 3.96 M/uL Hemoglobin 12.1 g/dL 12.8 g/dL Hematocrit 36.6 % 37.9 % Mean Corpuscular Volume 97.6 fL 95.7 fL Mean Corpuscular Hemoglobin 32.3 pg 32.3 pg Mean Corpuscular Hemoglobin Concent 33.1 g/dl 33.8 g/dl Platelet Count 244 K/uL 218 K/uL Mean Platelet Volume 9.9 fL 10.1 fL Neutrophils (%) (Auto) 48.1 % Lymphocytes (%) (Auto) 34.9 % Monocytes (%) (Auto) 9.9 % Eosinophils (%) (Auto) 6.3 % Basophils (%) (Auto) 0.7 % Neutrophils # (Auto) 3.51 K/uL Lymphocytes # (Auto) 2.55 K/uL Monocytes # (Auto) 0.72 K/uL Eosinophils # (Auto) 0.46 K/uL Basophils # (Auto) 0.05 K/uL RDW Standard Deviation 48.6 fL 46.1 fL RDW Coefficient of Variation 13.6 % 13.3 % Immature Granulocyte % (Auto) 0.1 % Immature Granulocyte # (Auto) 0.01 K/uL Sodium Level 139 mmol/L 139 mmol/L Potassium Level 4.3 mmol/L 4.3 mmol/L Chloride Level 106 mmol/L 107 mmol/L Carbon Dioxide Level 28 mmol/L 25 mmol/L Anion Gap 5.0 mmol/L 7.0 mmol/L Blood Urea Nitrogen 32 mg/dl 25 mg/dl Creatinine 1.19 mg/dl 1.11 mg/dl Est Creatinine Clear Calc Drug Dose 40.8 ml/min 43.2 ml/min Estimated GFR () 49.2 53.6 Estimated GFR (Non- 42.5 46.2 BUN/Creatinine Ratio 26.8 22.5 Random Glucose 90 mg/dl 87 mg/dl Estimated Average Glucose 123 mg/dl Hemoglobin A1c 5.9 % Calcium Level 8.7 mg/dl 8.7 mg/dl Total Bilirubin 0.4 mg/dl Aspartate Amino Transf (AST/SGOT) 14 U/L Alanine Aminotransferase (ALT/SGPT) 18 U/L Alkaline Phosphatase 84 U/L Troponin I < 0.015 ng/ml Total Protein 6.9 gm/dl Albumin 3.3 gm/dl Globulin 3.6 gm/dl Albumin/Globulin Ratio 0.9 Thyroid Stimulating Hormone (TSH) 0.672 uIu/ml Valproic Acid (Depakene) Level 41 mcg/ml Urine Color YELLOW Urine Appearance CLOUDY Urine pH 5.0 Urine Specific [place] 1.027 Urine Protein NEG Urine Glucose (UA) NEG Urine Ketones NEG Urine Occult Blood NEG Urine Nitrite NEG Urine Bilirubin NEG Urine Urobilinogen NEG Urine Leukocyte Esterase TRACE Urine WBC (Auto) 5-10 /hpf Urine RBC (Auto) 0-4 /hpf Urine Hyaline Casts (Auto) 5-10 /lpf Urine Epithelial Cells (Auto) >30 /lpf Urine Bacteria (Auto) 2+ Triglycerides Level 190 mg/dl Cholesterol Level 139 mg/dl HDL Cholesterol 46 mg/dl LDL Cholesterol, Calculated 55 mg/dl VLDL Cholesterol, Calculated 38 mg/dl Cholesterol/HDL Ratio 3.0 Assessment and Plan 82 y/o female with a history of CAD, HTN, HLD, h/o [place] s/p stents, CABG x 3, 2 inoperable brain aneurysms, depression/anxiety, migraine, PVD, and GERD who presented to the ED on 07/13 with weakness, lightheadedness and unsteady gait. Weakness, unsteady gait, lightheaded--low suspicion for stroke. Possibly dehydration? - Admit to telemetry for observation - MRI brain, MRA head and neck. If MRA neck positive for plaques, can order carotid ultrasound - Stroke protocol, neuro checks - Continue ASA, Plavix, statin, BB - Lipid panel WNL, A1c=5.9 - Urine culture pending, UA was dirty - no abx on board currently as pt afebrile , no leukocytosis - TSH WNL CAD, h/o [place], cardiac stents, CABG, HTN, HLD--stable -Continue ASA 81 mg PO qd, Plavix 75 mg PO qd, metoprolol succinate 25 mg PO qd , irbesartan 75 mg PO qd, Imdur 60 mg PO qd, Zocor 40 mg PO hs Brain aneurysms- - MRI brain completed showing 8.5 mm stable anurysm R. MCA Depression/anxiety -Continue Cymbalta 60 mg PO qd and Xanax 0.25 mg PO hs prn Migraine - Continue Depakote 250 mg PO qd - depakote level= 41, appears to be controlling sx - follow with PVD s/p femoral stent--stable GERD -Continue Pepcid 20 mg PO qd DVT ppx: lovenox, teds/scds Code Status: FULL Disposition:
[2017-07-14] MEDS ORDERED: LIDODERM (LIDOCAINE) PATCH 5% TD SCH (10:45)
--- NOTE | 2017-07-14 11:28 | Discharge Instructions ---
Discharge Instructions Date of Service Jul 14, 2017. Admission Reason for Admission: Unsteady Gait, Weakness Discharge Discharge Diagnosis / Problem: Lighteadess, unsteady gait secondary to polypharmacy Discharge Goals Goal(s): Decrease discomfort, Improve function, Increase independence, Improve disease control Activity Recommendations Activity Limitations: resume your previous activity Lifting Limitations: no more than 25 pounds, gradually increase as tolerated Exercise/Sports Limitations: rest today, gradually increase as tolerated May Resume Sexual Activity: when tolerated Shower/Bathe: no limitations (with assistance) Driving or Machine Use: no limitations . Instructions / Follow-Up Instructions / Follow-Up You were admitted to [facility] with lightheadedness, unsteadiness and weakness and diagnosed with lightheadedness secondary to tramadol use. During your stay here you were treated with supportive care and underwent stroke workup. Imaging studies which were completed include CT head, MRI brain, MRA neck and carotids, and were abnormal showing a stable 8.5 mm aneurysm in the right MCA. There was no stroke or acute findings found. All other blood work including lipid panel, hgb A1C for diabetes was within normal limits. Your status improved with stopping tramadol. A urine culture was obtained and is still in process. You did not have any urinary symptoms, did not have fever, or an elevated white blood cell count, so were not treated with antibiotics. The results of this culture will go to your family physician and if you need further treatment will be contacted. Medications: STOP taking tramadol as this was causing you to be lightheaded and unsteady with walking. Use topical treatments like heat, ice and lidocaine patch for pain relief in the Right shoulder. Continue working with Occupational therapy to help improve shoulder mobility. Continue taking all your other medications. Appointments: Follow up with your Primary Care Provider within 1 week. Current Hospital Diet Patient's current hospital diet: AHA Diet (Heart Healthy) Discharge Diet Recommended Diet: AHA Diet (Heart Healthy) Pending Studies Studies pending at discharge: yes List of pending studies: Urine culture- follow up results by PCP Laboratory Results Hemoglobin A1c Test 07/13/17 14:29 Range/Units Estimated Average Glucose 123 mg/dl Hemoglobin A1c 5.9 H 4.5-5.6 % Lipid Panel Test 07/14/17 06:36 Range/Units Triglycerides Level 190 H 0-150 mg/dl Cholesterol Level 139 0-200 mg/dl HDL Cholesterol 46 mg/dl Cholesterol/HDL Ratio 3.0 LDL Cholesterol, Calculated 55 mg/dl Medical Emergencies . Who to Call and When: Medical Emergencies: If at any time you feel your situation is an emergency, please call 911 immediately. . Non-Emergent Contact Non-Emergency issues call your: Primary Care Provider, Tire Tester Call Non-Emergent contact if: you have a fever, temperature is above 100.5, your pain is not controlled, your pain is worsening, your pain is unusual for you, your pain is concerning you . Past History Medical & Surgical History: (1) Weakness (2) Dizziness (3) Unsteady gait . "Provider Documentation" section prepared by Kristel Hdz. . VTE Core Measure Inpt VTE Proph given/why not?: Enoxaparin (Lovenox)CATRACHITA, T.EAbigail Thompson, SCD's
[2017-07-14] MEDS ORDERED: LDDP5 TD (11:29)
--- NOTE | 2017-07-14 11:47 | Discharge Summary ---
Discharge Summary Date of Service Jul 14, 2017. Discharge Summary Admission Date: Jul 13, 2017 at 16:48 Discharge Date: Jul 14, 2017 Discharge Disposition: Home Principal Diagnosis: Unsteady gait, weakness, secondary to tramadol Problems/Secondary Diagnoses: Medical Problems: (1) Brain aneurysm (2) CAD (coronary artery disease) (3) Heart disease (4) Hx of myocardial infarction (5) Hypertension Surgical Problems: (1) H/O heart artery stent (2) Hx of CABG (3) Hx of cholecystectomy Procedures: HEAD CT NONCONTRAST 07/13/17 Impression: No significant change compared to the prior study. No acute intracranial abnormality. 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 CHEST ONE VIEW PORTABLE 07/13/17 IMPRESSION: No acute process. NECK MRA 07/13/17 IMPRESSION: 1. Technically limited study 2. No evidence of common carotid, internal carotid or vertebral artery stenosis 3. 8.5 mm aneurysm at the level of the right middle cerebral artery bifurcation MR ANGIOGRAPHY OF THE [place] NO CONTRAST 07/13/17 IMPRESSION: 1. No major intracranial branch occlusions 2. 8.5 mm aneurysm of the right MCA bifurcation 3. 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 No acute intracranial findings 2. No evidence of intracranial mass 3. No evidence of acute or subacute infarction 4. 8.5 mm aneurysm in the region of the right MCA bifurcation Medication Reconciliation New Medications: Lidocaine (Lidocaine) 1 Patch Tdsy 1 PATCH TD QAM for 15 Days, #15 PATCH Continued Medications: Acetaminophen (Tylenol) 325 Mg Tab 650 MG PO QAM Acetaminophen (Tylenol) 325 Mg Tab 975 MG PO QPM THREE 325 MG TABLETS Alprazolam (Xanax) 0.25 Mg Tab 0.25 MG PO HS PRN for Anxiety Aspirin (Aspirin Ec) 81 Mg Tab 81 MG PO DAILY Clopidogrel (Plavix) 75 Mg Tab 75 MG PO DAILY, TAB Divalproex Sodium (Depakote Delay Rel) 250 Mg Tab 250 MG PO QAM Duloxetine Hcl (Cymbalta) 60 Mg Cap 60 MG PO DAILY Famotidine (Pepcid) 20 Mg Tab 20 MG PO QAM Irbesartan (Avapro) 75 Mg Tab 75 MG PO DAILY Isosorbide Mononitrate Ext Rel (Imdur Ext Rel) 60 Mg Ertab 60 MG PO QAM, TAB Metoprolol Succinate (Metoprolol Succinate ER) 25 Mg Tabcr 25 MG PO DAILY Nitroglycerin (Nitrostat) 0.4 Mg Sub 0.4 MG UT PRN, BTL Simvastatin (Zocor) 40 Mg Tab 40 MG PO QPM, TAB Discontinued Medications: Tramadol (Ultram) 50 Mg Tab 25 MG PO BID PRN for Pain, TAB takes second dose around 1500 Discharge Exam The patient was seen and examined this morning. Pt reports doing well this morning, she denies any lightheadedness and has been ambulating about the room without unsteadiness in her gait per nursing and daughter at bedside. Pt has had a negative stroke workup. Denies chest pain, palpitations, flutter, chest heaviness or shortness of breath at rest or on exertion. Pt recently started tramadol after a fall sustained from lying in bed, where she injured the right shoulder. Tramadol 25 mg BID was prescribed to her. She notes she doesn't get great pain control with this med, and that commonly feels lightheaded about 1 hour after taking the medication. She has been using tylenol around the clock and other topical therapies like ice, heat and biofreeze to help with the pain. Biofreeze actually works better than the tramadol according to her. I have suggested a lidocaine patch, so will trial this prior to discharge. She lives at home with daughter and grandson. Denies any other acute complaints. ROS: 10 point ROS reviewed and otherwise negative. Physical Exam: General Appearance: WD/WN, no apparent distress Eyes: PERRL, EOMI ENT: hearing grossly normal, pharynx normal Neck: supple, thyroid normal Respiratory/Chest: lungs clear, no respiratory distress, no accessory muscle use, + pertinent finding (on RA) Cardiovascular: regular rate, rhythm, + systolic murmur (grade II/) Abdomen / GI: normal bowel sounds, non tender, soft Extremities: normal inspection, no calf tenderness, no pedal edema, + pertinent finding (Diminshed active and passive ROM with R shoulder secondary to previous injury) Neurologic/Psychiatric: alert, normal mood/affect, oriented x 3 Skin: normal color, warm/dry Hospital Course History of Present Illness Source: patient, family (daughter at bedside), clinic records, hospital records This is an 82 y/o female with a history of CAD, HTN, HLD, h/o CA s/p stents, CABG x 3, 2 inoperable brain aneurysms, depression/anxiety, migraine, PVD, and GERD who presented to the ED on 07/13 with weakness, lightheadedness and unsteady gait. The patient states that she has had lightheadedness and dizziness for the last few days upon standing and while ambulating. She also reports weakness in her legs and an unsteady gait. She lives at home with her daughter , who reports that the patient lately has required more assistance. The patient complains of some shortness of breath and dyspnea on exertion. The patient notes a previous injury to her right shoulder and that she cannot raise her right arm even after having a total shoulder arthroplasty. The patient denies fevers, chills, sweats, chest pain, palpitations, claudication, cough, wheezing, nausea, vomiting, abdominal pain, dysuria, hematuria, urinary retention, paralysis, numbness and tingling. Physical Exam General appearance: Well-developed, well-nourished, no apparent distress Head: Normocephalic, atraumatic Eyes: Normal inspection, PERRL, EOMI ENT: Normal ENT inspection, hearing grossly normal, pharynx normal Neck: Supple, no JVD, trachea midline Respiratory/Chest: Lungs clear to auscultation, normal breath sounds, no respiratory distress Cardiovascular: +Systolic murmur. Regular rate & rhythm, no gallop Abdomen/GI: Normal bowel sounds, non-tender, soft Extremities/Musculoskeletal: Normal inspection, no calf tenderness, no pedal edema Neurological/Psych: +Unable to test RUE due to previous injury. No facial droop, slurred speech. Category Analyst strengths equal. Strength equal as tested in lower extremities. Alert, normal mood/affect, oriented x 3 Skin: Normal color, warm/dry, no rash Hospital Course: 82 y/o female with a history of CAD, HTN, HLD, h/o CA s/p stents, CABG x 3, 2 inoperable brain aneurysms, depression/anxiety, migraine, PVD, and GERD who presented to the ED on 07/13 with weakness, lightheadedness and unsteady gait. Weakness, unsteady gait, lightheaded due to Tramadol adverse effects. - Pt recently started on this medication in past 2 weeks for injury of the R shoulder after fall from out of bed. Had been getting lightheaded with tramadol 25 mg BID. Pt is currently doing home health therapy twice weekly. Pain controlled with topical agents like biofreeze and Tylenol around the clock. Added lidocaine patch for relief. STOP Tramadol. - Stroke workup negative - MRI brain, MRA head and neck all negative for acute findings. - An echocardiogram was not conducted as pts symptoms resolved with cessation of tramadol. If has recurrence of lightheadedness would recommend ECHO complete to be done. - Continue ASA, Plavix, statin, BB - Lipid panel WNL, A1c=5.9 - Urine culture pending, UA was dirty - no abx on board currently as pt afebrile , no leukocytosis - can follow up with PCP if abnormal results. Pt without urinary sx. - TSH WNL CAD, h/o CA, cardiac stents, CABG, HTN, HLD--stable -Continue ASA 81 mg PO qd, Plavix 75 mg PO qd, metoprolol succinate 25 mg PO qd , irbesartan 75 mg PO qd, Imdur 60 mg PO qd, Zocor 40 mg PO hs Brain aneurysms- - MRI brain completed showing 8.5 mm stable anurysm R. MCA Depression/anxiety -Continue Cymbalta 60 mg PO qd and Xanax 0.25 mg PO hs prn Migraine - Continue Depakote 250 mg PO qd - depakote level= 41, controlling sx well so no need for dose adjustment at this time. PVD s/p femoral stent--stable GERD -Continue Pepcid 20 mg PO qd DVT ppx: lovenox, teds/scds Code Status: FULL Disposition: From home, lives with daughter, discharge to home today. Home health services on for OT/PT with previous shoulder injury. Follow up with your Primary Care Provider within 1 week. i personally examined pt and verified all heredia points dionisio Hdz PAC feeling better now. suspects tramadol was culprit and wasn't really helping shoulder pain much anyway vitals noted nad breathing unlabored no pallor or icterus lightheadedness -likley tramadol ADR -less likely antihypertensive related --> if stopping tramadol doesn't correct sx, then would consider further weaning of BP meds, but vitals are in a range that makes BP meds lower suspicion ----exceedingly less likely any valvular issues given no murmur and no angina, etc --> but if ongoing sx despite reducign med list, then consider echo stable for home Total Time Spent: Greater than 30 minutes This includes examination of the patient, discharge planning, medication reconciliation, and communication with other providers. Discharge Instructions Please refer to the electronic Patient Visit Report (Discharge Instructions) for additional information. Follow-Up Follow up with your Primary Care Provider within 1 week. Additional Copies To Irma Reid M.D.
--- NOTE | 2017-07-14 13:28 | Medical Student: [facility] ---
Med Student Progress Note Date of Service Jul 14, 2017. Subjective Pt evaluation today including: conversation w/ patient, conversation w/ family The patient describes a 2 day history of lightheadedness and right leg weakness. She said that she had 3 episodes of lightheadedness recently. She fell out of bed 2-3 weeks ago (she couldn't remember exactly when) and didn't know how that happened, only being on the ground with her grandson calling for the patient's daughter, with whom she lives with. Her knees hurt some afterward , and she had some bruising, but did not sustain any injuries. She did not have any of the symptoms she complained of today at the time of that event, or in the days following. She has not had any symptoms while in the hospital. She denied an extensive review of systems, and cannot note any associated symptoms other than what is mentioned. She did admitted to some shortness of breath with exertion; the patient has an extensive cardiovascular history. This includes a prior [place], triple CABG procedure, at least 2 separate cardiac stenting procedures, stenting procedures performed to large vessel lower extremity vasculature (groin region per patient). Review of Systems Constitutional: + weakness, No fever, No chills, No sweats, No fatigue Eyes: No worsening of vision, No diplopia ENT: + hearing loss (has had trouble hearing for quite some time), No tinnitus Respiratory: + dyspnea on exertion, No cough, No sputum, No wheezing, No shortness of breath, No dyspnea at rest Cardiac: No chest pain, No edema, No claudication Abdomen: No pain, No nausea, No vomiting, No diarrhea, No constipation Musculoskeletal: + joint pain, No swelling, No calf pain Female : No dysuria, No urinary frequency, No hematuria, No incontinence Neurologic: + weakness, + balance problems, No memory loss, No paralysis, No numbness/tingling, No vertigo Heme: No night sweats Skin: + problem reported (brusing in a couple locations that is healing) All Other Systems: Reviewed and Negative Objective Vital Signs Date Time Temp Pulse Resp B/P (MAP) Pulse Ox O2 Delivery O2 Flow Rate FiO2 07/14/17 12:46 36.6 67 18 95 Room Air 07/14/17 11:04 67 130/70 (90) 07/14/17 11:03 60 134/68 (90) 07/14/17 11:02 36.6 62 18 136/62 (86) 95 Room Air 07/14/17 08:00 Room Air 07/14/17 07:22 70 07/14/17 07:20 36.7 54 18 154/73 (100) 92 Room Air 07/14/17 04:00 Room Air 07/14/17 03:53 36.6 60 16 131/71 (91) 95 Room Air 07/14/17 00:00 Room Air 07/13/17 23:06 37.0 59 18 149/62 (91) 96 Room Air 07/13/17 20:00 Room Air 07/13/17 18:46 36.4 62 18 156/75 (102) 96 Room Air 07/13/17 17:23 67 20 140/68 98 Room Air 07/13/17 16:13 Room Air 07/13/17 15:30 68 20 140/65 99 Room Air 07/13/17 14:09 64 115/66 73 104/63 74 121/74 07/13/17 13:45 98 Room Air 07/13/17 13:38 69 07/13/17 13:38 36.8 66 20 135/58 98 Room Air Physical Exam General Appearance: WD/WN, no apparent distress Eyes: bilateral eyes normal inspection, bilateral eyes PERRL, bilateral eyes EOMI ENT: hearing grossly normal Neck: no JVD, no carotid bruits, trachea midline Respiratory/Chest: chest non-tender, lungs clear, no respiratory distress, no accessory muscle use, + decreased breath sounds Cardiovascular: regular rate, rhythm, no edema, no gallop, no JVD, no murmur Abdomen: non tender, soft, no organomegaly, no pulsatile mass Extremities: normal inspection, no pedal edema, no calf tenderness Neurologic/Psychiatric: no motor/sensory deficits, alert, normal mood/affect, oriented x 3 Skin: normal color, warm/dry, no rash, + pertinent finding (some brusing consistant with falling out of bed per history) Laboratory Results Last 24 Hours Test 07/13/17 14:29 07/13/17 14:45 07/14/17 06:36 White Blood Count 7.30 K/uL 6.77 K/uL Red Blood Count 3.75 M/uL 3.96 M/uL Hemoglobin 12.1 g/dL 12.8 g/dL Hematocrit 36.6 % 37.9 % Mean Corpuscular Volume 97.6 fL 95.7 fL Mean Corpuscular Hemoglobin 32.3 pg 32.3 pg Mean Corpuscular Hemoglobin Concent 33.1 g/dl 33.8 g/dl Platelet Count 244 K/uL 218 K/uL Mean Platelet Volume 9.9 fL 10.1 fL Neutrophils (%) (Auto) 48.1 % Lymphocytes (%) (Auto) 34.9 % Monocytes (%) (Auto) 9.9 % Eosinophils (%) (Auto) 6.3 % Basophils (%) (Auto) 0.7 % Neutrophils # (Auto) 3.51 K/uL Lymphocytes # (Auto) 2.55 K/uL Monocytes # (Auto) 0.72 K/uL Eosinophils # (Auto) 0.46 K/uL Basophils # (Auto) 0.05 K/uL RDW Standard Deviation 48.6 fL 46.1 fL RDW Coefficient of Variation 13.6 % 13.3 % Immature Granulocyte % (Auto) 0.1 % Immature Granulocyte # (Auto) 0.01 K/uL Sodium Level 139 mmol/L 139 mmol/L Potassium Level 4.3 mmol/L 4.3 mmol/L Chloride Level 106 mmol/L 107 mmol/L Carbon Dioxide Level 28 mmol/L 25 mmol/L Anion Gap 5.0 mmol/L 7.0 mmol/L Blood Urea Nitrogen 32 mg/dl 25 mg/dl Creatinine 1.19 mg/dl 1.11 mg/dl Est Creatinine Clear Calc Drug Dose 40.8 ml/min 43.2 ml/min Estimated GFR () 49.2 53.6 Estimated GFR (Non- 42.5 46.2 BUN/Creatinine Ratio 26.8 22.5 Random Glucose 90 mg/dl 87 mg/dl Estimated Average Glucose 123 mg/dl Hemoglobin A1c 5.9 % Calcium Level 8.7 mg/dl 8.7 mg/dl Total Bilirubin 0.4 mg/dl Aspartate Amino Transf (AST/SGOT) 14 U/L Alanine Aminotransferase (ALT/SGPT) 18 U/L Alkaline Phosphatase 84 U/L Troponin I < 0.015 ng/ml Total Protein 6.9 gm/dl Albumin 3.3 gm/dl Globulin 3.6 gm/dl Albumin/Globulin Ratio 0.9 Thyroid Stimulating Hormone (TSH) 0.672 uIu/ml Valproic Acid (Depakene) Level 41 mcg/ml Urine Color YELLOW Urine Appearance CLOUDY Urine pH 5.0 Urine Specific [place] 1.027 Urine Protein NEG Urine Glucose (UA) NEG Urine Ketones NEG Urine Occult Blood NEG Urine Nitrite NEG Urine Bilirubin NEG Urine Urobilinogen NEG Urine Leukocyte Esterase TRACE Urine WBC (Auto) 5-10 /hpf Urine RBC (Auto) 0-4 /hpf Urine Hyaline Casts (Auto) 5-10 /lpf Urine Epithelial Cells (Auto) >30 /lpf Urine Bacteria (Auto) 2+ Triglycerides Level 190 mg/dl Cholesterol Level 139 mg/dl HDL Cholesterol 46 mg/dl LDL Cholesterol, Calculated 55 mg/dl VLDL Cholesterol, Calculated 38 mg/dl Cholesterol/HDL Ratio 3.0 Medications Current Inpatient Medications Medications (Trade) Dose Ordered Sig/Gurjit Route Start Time Stop Time Status Last Admin Dose Admin Miscellaneous Information (Pharmacist Discharge Med Rec Consult) 1 ea UD PRN N/A 07/13/17 16:30 08/12/17 16:29 Enoxaparin Sodium (Lovenox Inj) 40 mg Q24H SC 07/13/17 21:00 08/12/17 20:59 07/13/17 21:29 40 MG Sodium Chloride 1,000 ml @ 50 mls/hr Q20H IV 07/13/17 18:45 08/12/17 18:44 07/13/17 18:45 50 MLS/HR Acetaminophen (Tylenol Tab) 650 mg Q4H PRN PO 07/13/17 16:30 08/12/17 16:29 Al Hydrox/Mg Hydrox/Simethicone (Maalox Max Susp) 15 ml Q4H PRN PO 07/13/17 16:30 08/12/17 16:29 Magnesium Hydroxide (Milk Of Magnesia Susp) 30 ml Q12H PRN PO 07/13/17 16:30 08/12/17 16:29 Ondansetron HCl (Zofran Inj) 4 mg Q6H PRN IV 07/13/17 16:30 08/12/17 16:29 Polyethylene (Miralax Powder Packet) 17 gm DAILY PRN PO 07/13/17 16:30 08/12/17 16:29 Acetaminophen (Tylenol Tab) 650 mg QAM PO 07/14/17 09:00 08/13/17 08:59 07/14/17 08:16 650 MG Acetaminophen (Tylenol Tab) 975 mg QPM PO 07/13/17 21:00 08/12/17 20:59 07/13/17 21:30 975 MG Alprazolam (Xanax Tab) 0.25 mg HS PRN PO 07/13/17 16:30 08/12/17 16:29 07/13/17 19:45 0.25 MG Aspirin (Ecotrin Tab) 81 mg DAILY PO 07/14/17 09:00 08/13/17 08:59 07/14/17 08:17 81 MG Clopidogrel Bisulfate (plAVix TAB) 75 mg DAILY PO 07/14/17 09:00 08/13/17 08:59 07/14/17 08:18 75 MG Divalproex Sodium (Depakote Delay Rel Tab) 250 mg QAM PO 07/14/17 09:00 08/13/17 08:59 07/14/17 08:18 250 MG Duloxetine HCl (Cymbalta Cap) 60 mg DAILY PO 07/14/17 09:00 08/13/17 08:59 07/14/17 08:17 60 MG Famotidine (Pepcid Tab) 20 mg QAM PO 07/14/17 09:00 08/13/17 08:59 07/14/17 08:18 20 MG Irbesartan (Avapro Tab) 75 mg DAILY PO 07/14/17 09:00 08/13/17 08:59 07/14/17 08:18 75 MG Isosorbide Mononitrate (Imdur Ext Rel Tab) 60 mg QAM PO 07/14/17 09:00 08/13/17 08:59 07/14/17 08:18 60 MG Metoprolol Succinate (Toprol Xl Tab) 25 mg DAILY PO 07/14/17 09:00 08/13/17 08:59 07/14/17 08:17 25 MG Simvastatin (Zocor Tab) 40 mg QPM PO 07/13/17 21:00 08/12/17 20:59 07/13/17 21:30 40 MG Miscellaneous (Iv Fluids Completed) 1 ea PRN PRN N/A 07/13/17 17:00 07/13/18 16:59 Gadobutrol (Gadavist) 8 mmol UD PRN IV 07/13/17 21:00 07/17/17 20:59 Lidocaine (Lidoderm Patch 5%) 1 patch QAM TD 07/14/17 10:45 08/13/17 10:44 07/14/17 11:37 1 PATCH Miscellaneous (Remove Lidoderm Patch) 1 ea DAILY@21 N/A 07/14/17 21:00 08/13/17 20:59 Assessment and Plan Assessment and Plan: Impression: Patient is an 82 year old female with a 2 day history of several episodes of lightheadedness and right leg weakness. A/P: Lightheadedness and weakness -believed secondary to polypharmacy with relatively new tramadol prescription and existing xanax prescription -extensive imagining and extensive clinical exam / review of systems did not reveal other suspected etiology -monitor for improvement or persistence of symptoms as an outpatient Extensive past medical history including: Brain aneurysms (2) Coronary artery disease with history of [place], triple CABG, and multiple stents HTN HLD Depression/anxiety Migraine GERD -All stable on current medications at present time
== END 2017-07-14 13:19 | disposition home or self-care (01) ==
LOC: EDBD 13:30 → C.EDA 13:31 → C.MED 16:48 → ENRESERV 17:07
PROVIDERS: ADMIT Internal Medicine; ATTEND Family Medicine
DX: R26.9 Unspecified abnormalities of gait and mobility (principal); R53.1 Weakness; R42 Dizziness and giddiness; T40.4X5A Adverse effect of other synthetic narcotics, initial encounter; I25.10 Atherosclerotic heart disease of native coronary artery without angina pectoris; I51.9 Heart disease, unspecified; I10 Essential (primary) hypertension; E78.5 Hyperlipidemia, unspecified; I67.1 Cerebral aneurysm, nonruptured; I25.2 Old myocardial infarction; Z95.1 Presence of aortocoronary bypass graft; Z90.49 Acquired absence of other specified parts of digestive tract; Z79.82 Long term (current) use of aspirin; Z82.49 Family history of ischemic heart disease and other diseases of the circulatory system

== ENCOUNTER → 2017-09-14 | Outpatient (CLI) | payer OTHER ==
[~2017-09-14] MED LIST changes: +LDDP5 TD; -METO-479 PO; -OXYC1TAB3 PO; +TPRSR25 PO
== END | disposition home or self-care (01) ==
LOC: C.LABBFT 09:51
PROVIDERS: ATTEND Internal Medicine Cardiovascular Disease
DX: I10 Essential (primary) hypertension (principal)

== ENCOUNTER 2018-06-30 14:49 | Inpatient (IN) ==
--- NOTE | 2018-06-30 15:41 | Emergency Department Note ---
Entered by Pati Shannon acting as a scribe for History of Present Illness General Chief complaint: Overdose (Accidental) Stated complaint: TOOK DOUBLE OF HER MEDS Source: patient and other (diesel truck driver) Mode of arrival: ambulatory Limitations: no limitations History of Present Illness Provider complaint: Overdose (accidental) Onset (ago): hour(s) (around 1430 today) Location: mouth Radiation: non-radiation Pain Consistency: + other (episode) Quality: + other (overdose) Associated symptoms: + confusion and + other (Additional symptoms: fatigue, right-sided shoulder pain. Denies: difficulty breathing); no chest pain and no nausea/vomiting The patient is an 83 year old female who presents to the Emergency Room with complaints of an episode of an accidental overdose that occurred around 1430 today. Per diesel truck driver, the patient was given her regular medications this morning around 0900. The patient's medications include 81 mg baby Aspirin, 60 mg Isosorbide, 250 mg Depakote, 25 mg Toperlol, 60 mg Cymbalta, 75 mg Avapro, 20 mg Pepsid, and 75 mg Plavix. The patient reportedly became confused and took a second dose of all of her medications around 1430. The diesel truck driver concedes that patient is normally somewhat confused. She states that she subsequently called the patient's PCP, Dr. Reid, and was immediately referred to the ED. She denies calling Poison Control. The patient notes that she currently feels tired but denies any nausea, vomiting, chest pain, and difficulty breathing. She also complains of slight right-sided shoulder pain secondary to a fall and shoulder surgery that occurred 1.5 years ago. Home Medications Home Medications Medication Instructions Recorded Confirmed Type acetaminophen 1,000 mg PO QAM 06/30/18 06/30/18 History acetaminophen 1,500 mg PO QPM 06/30/18 06/30/18 History alprazolam 0.25 mg PO HS PRN 06/30/18 06/30/18 History aspirin 81 mg PO QAM 06/30/18 06/30/18 History clopidogrel 75 mg PO QAM 06/30/18 06/30/18 History divalproex 250 mg PO QAM 06/30/18 06/30/18 History duloxetine 60 mg PO QAM 06/30/18 06/30/18 History famotidine 20 mg PO QAM 06/30/18 06/30/18 History mxskejfkgvr-tjpnitqae-eeisakrw 1 puff INHALATION QAM 06/30/18 06/30/18 History ipratropium-albuterol 3 ml INHALATION Q4H PRN 06/30/18 06/30/18 History irbesartan 75 mg PO QAM 06/30/18 06/30/18 History isosorbide mononitrate 60 mg PO QAM 06/30/18 06/30/18 History metoprolol succinate 25 mg PO QAM 06/30/18 06/30/18 History nitroglycerin [Nitrostat] 0.4 mg SUBLINGUAL DIRECTED PRN 06/30/18 06/30/18 History simvastatin 40 mg PO QPM 06/30/18 06/30/18 History Allergies Allergy/AdvReac Type Severity Reaction Status Date / Time donepezil Allergy Intermediate dirrhea Verified 06/30/18 15:26 Penicillins Allergy Unknown SWELLING Verified 06/30/18 15:26 Sulfa (Sulfonamide Allergy Unknown SWELLING Verified 06/30/18 15:26 Antibiotics) Past Med/Surg History Medical History Hypertension (Chronic) Brain aneurysm (Chronic) Heart disease (Chronic) CAD (coronary artery disease) Hx of myocardial infarction Surgical History S/P shoulder surgery Hx of cholecystectomy (Chronic) Hx of CABG (Chronic) H/O heart artery stent (Chronic) Social History marital status: Single Current Living Situation: Family current occupational status: retired Other Information That Helps Us Care for You: No Feels Safe at Home: Yes Safety Concerns: Feels Safe At This Time Smoking Status: Current every day smoker Tobacco Type: cigarettes Do You Dip or Chew Tobacco: No Second Hand Exposure: No Tobacco Cessation Education Requested by Patient: No Hx Alcohol Use: No Hx Substance Use: No Beliefs That Will Affect Care: None Preferred Language: Upper Sorbian Review of Systems See HPI for pertinent positives & negatives. and A total of 10 systems reviewed and were otherwise negative Physical Exam Vital Signs Vital Signs - 24 hr 06/30/18 17:01 06/30/18 17:30 06/30/18 18:00 Temperature Temperature Source Pulse Rate 77 72 73 Pulse Rate [Finger] Pulse Rhythm Pulse Rhythm [Finger] Pulse Strength [Finger] Respiratory Rate 14 14 22 Respiratory Effort / Characteristics Respiratory Depth Respiratory Pattern Blood Pressure 90/53 L 102/50 L 109/58 L Blood Pressure [Left Arm] Blood Pressure [Right Arm] Blood Pressure Mean 65 67 75 Blood Pressure Mean [Left Arm] Blood Pressure Mean [Right Arm] Blood Pressure Position [Left Arm] Blood Pressure Position [Right Arm] Pulse Oximetry 95 95 97 Oxygen Delivery Method 06/30/18 18:30 06/30/18 19:39 06/30/18 21:00 Temperature Temperature Source Pulse Rate 70 70 Pulse Rate [Finger] 70 69 Pulse Rhythm Regular Pulse Rhythm [Finger] Regular Regular Pulse Strength [Finger] Normal Normal Respiratory Rate 18 20 20 Respiratory Effort / Characteristics Non-Labored Spontaneous Non-Labored Spontaneous Respiratory Depth Normal Normal Respiratory Pattern Regular Regular Blood Pressure 96/50 L Blood Pressure [Left Arm] 114/55 L 108/63 Blood Pressure [Right Arm] Blood Pressure Mean 65 Blood Pressure Mean [Left Arm] 74 78 Blood Pressure Mean [Right Arm] Blood Pressure Position [Left Arm] Sitting Sitting Blood Pressure Position [Right Arm] Pulse Oximetry 94 95 96 Oxygen Delivery Method Room Air Room Air 06/30/18 23:00 07/01/18 00:14 07/01/18 00:30 Temperature 36.4 C L Temperature Source Oral Pulse Rate 72 83 Pulse Rate [Finger] 74 80 Pulse Rhythm Pulse Rhythm [Finger] Pulse Strength [Finger] Respiratory Rate 19 25 H 20 Respiratory Effort / Characteristics Non-Labored Spontaneous Respiratory Depth Normal Respiratory Pattern Blood Pressure 132/68 Blood Pressure [Left Arm] 118/70 Blood Pressure [Right Arm] 146/66 H Blood Pressure Mean Blood Pressure Mean [Left Arm] 86 Blood Pressure Mean [Right Arm] 92 Blood Pressure Position [Left Arm] Sitting Blood Pressure Position [Right Arm] Lying Pulse Oximetry 93 93 91 Oxygen Delivery Method Room Air Room Air Room Air 07/01/18 01:30 07/01/18 04:22 07/01/18 07:40 Temperature 36.4 C L 36.7 C 36.7 C Temperature Source Oral Oral Oral Pulse Rate Pulse Rate [Finger] 80 79 83 Pulse Rhythm Pulse Rhythm [Finger] Pulse Strength [Finger] Respiratory Rate 20 18 20 Respiratory Effort / Characteristics Non-Labored Spontaneous Respiratory Depth Normal Respiratory Pattern Regular Blood Pressure Blood Pressure [Left Arm] 125/66 Blood Pressure [Right Arm] 146/66 H 132/55 L Blood Pressure Mean Blood Pressure Mean [Left Arm] 85 Blood Pressure Mean [Right Arm] 92 80 Blood Pressure Position [Left Arm] Lying Blood Pressure Position [Right Arm] Lying Lying Pulse Oximetry 91 90 90 Oxygen Delivery Method Room Air Room Air Room Air 07/01/18 10:50 07/01/18 13:54 Temperature 36.8 C 36.8 C Temperature Source Oral Pulse Rate Pulse Rate [Finger] 76 76 Pulse Rhythm Pulse Rhythm [Finger] Pulse Strength [Finger] Respiratory Rate 19 19 Respiratory Effort / Characteristics Respiratory Depth Respiratory Pattern Blood Pressure Blood Pressure [Left Arm] 121/54 L 121/54 L Blood Pressure [Right Arm] 132/55 L Blood Pressure Mean Blood Pressure Mean [Left Arm] 76 Blood Pressure Mean [Right Arm] Blood Pressure Position [Left Arm] Sitting Blood Pressure Position [Right Arm] Pulse Oximetry 91 91 Oxygen Delivery Method Room Air GENERAL: Patient is awake alert in no acute distress patient is resting comfortably and showing no signs of anxiety EYES: The conjunctivae are clear. The pupils are round and reactive. EARS, NOSE, MOUTH AND THROAT: The nose is without any evidence of any deformity. Mucous membranes are moist tongue is midline NECK: The neck is nontender and supple. RESPIRATORY: Normal respiratory effort is noted there is no evidence of wheezing rhonchi or rales CARDIOVASCULAR: Regular rate and rhythm noted there no murmurs rubs or gallops normal S1 normal S2 GASTROINTESTINAL: The abdomen is soft. Bowel sounds are present in all quadrants. Abdomen is nontender MUSCULOSKELETAL/EXTREMITIES: There is no evidence of gross deformity full range of motion is noted in the hips and shoulders SKIN: Skin is cool and pale. There is no significant pedal edema noted. NEUROLOGIC: Patient is awake alert and oriented to person place and situation. Strength was symmetric. Course 1533: Past medical records reviewed. The patient was evaluated in room C7, and a complete history and physical examination were performed. 1545: I spoke to the nurse at this time and she will call Poison Control to discuss the patient's case. 1645: The nurse spoke to geriatric case manager and was instructed to keep an eye on the patient for 4 hours after the overdose. If the patient does not have any symptoms after 4 hours she can go home. 1845: I checked on the patient at this time. 1847: We will call Poison Control again at this time because the patient's blood pressure is still low. 2047: I reevaluated the patient at this time and updated her on her results. 2049: I reviewed the patient's case with Dr. Talley - Hospitalist, [facility]. Dr. Talley will evaluate the patient for further management. Consultations Consultation #1: I reviewed the patient's case with Dr. Talley - Hospitalist, [facility]. Dr. Talley will evaluate the patient for further management. Time: 20:50 Administered Medications Discontinued Medications Acetaminophen (Tylenol) 1,000 mg PO [facility] Stop: 07/31/18 08:59 Last Admin: 07/01/18 09:23 Dose: 1,000 mg Aspirin (Ecotrin) 81 mg PO [facility] Stop: 07/31/18 08:59 Last Admin: 07/01/18 09:23 Dose: 81 mg Clopidogrel Bisulfate (Plavix) 75 mg PO [facility] Stop: 07/31/18 08:59 Last Admin: 07/01/18 09:24 Dose: 75 mg Divalproex Sodium (Depakote Delay Release) 250 mg PO [facility] Stop: 07/31/18 08:59 Last Admin: 07/01/18 09:23 Dose: 250 mg Duloxetine HCl (Cymbalta) 60 mg PO [facility] Stop: 07/31/18 08:59 Last Admin: 07/01/18 09:24 Dose: 60 mg Famotidine (Pepcid) 20 mg PO [facility] Stop: 07/31/18 08:59 Last Admin: 07/01/18 09:24 Dose: 20 mg Sodium Chloride (Nss) 500 mls @ 999 mls/hr IV .Q31M [facility] Stop: 06/30/18 19:30 Last Infusion: 06/30/18 20:09 Dose: 0 mls/hr Admin: 06/30/18 19:39 Dose: 999 mls/hr Irbesartan (Avapro) 75 mg PO [facility] Stop: 07/31/18 08:59 Last Admin: 07/01/18 09:22 Dose: 75 mg Isosorbide Mononitrate (Imdur Extended Rel) 60 mg PO [facility] Stop: 07/31/18 08:59 Last Admin: 07/01/18 09:24 Dose: 60 mg Metoprolol Succinate (Toprol Xl) 25 mg PO [facility] Stop: 07/31/18 08:59 Last Admin: 07/01/18 09:23 Dose: 25 mg Miscellaneous (Order Awaiting Action) 1 ea N/A QS [facility]CO Stop: 07/31/18 07:59 Last Admin: 07/01/18 09:21 Dose: Not Given Medical Decision Making Differential Diagnosis Differential includes acute coronary syndrome, myocardial infarction, CVA, TIA , anemia, infection, pneumonia, UTI, pyelonephritis, poor nutrition, dehydration , electrolyte disturbance,hypoglycemia. Medical Records Attestation: I reviewed the patient's medical records. Home Medications Current Medication List: was personally reviewed by me Laboratory Data Attestation: I reviewed the patient's lab results. Result diagrams: 07/01/18 05:49 07/01/18 05:49 Lab Results 06/30/18 06/30/18 06/30/18 Range/Units 19:05 19:05 19:05 WBC 9.28 (4.8-10.8) K/uL RBC 3.14 L (4.2-5.4) M/uL Hgb 9.2 L (12.0-16.0) g/dL Hct 29.1 L (37-47) % MCV 92.7 (80-100) fL MCH 29.3 (25-34) pg MCHC 31.6 L (32-36) g/dL RDW Std Deviation 51.9 H (36.4-46.3) fL RDW Coeff of Calvin 15.3 H (11.5-14.5) % Plt Count 294 (130-400) K/uL MPV 9.3 (7.4-10.4) fL Immature Gran % (Auto) 0.3 % Neut % (Auto) 72.7 % Lymph % (Auto) 13.8 % [place] % (Auto) 10.5 % Eos % (Auto) 2.4 % Baso % (Auto) 0.3 % Immature Gran # (Auto) 0.03 H (0.00-0.02) K/uL Neut # (Auto) 6.75 H (1.4-6.5) K/uL Lymph # (Auto) 1.28 (1.2-3.4) K/uL [place] # (Auto) 0.97 H (0.11-0.59) K/uL Eos # (Auto) 0.22 (0-0.5) K/uL Baso # (Auto) 0.03 (0-0.2) K/uL RBC Morphology PT 10.0 (9.0-12.0) Seconds INR 1.0 (0.9-1.1) APTT (21.0-31.0) Seconds PTT Ratio Sodium 138 (136-145) mmol/L Potassium 5.0 (3.5-5.1) mmol/L Chloride 107 (98-107) mmol/L Carbon Dioxide 26 (21-32) mmol/L Anion Gap 5.0 (3-11) BUN 24 H (7-18) mg/dl Creatinine 1.33 H (0.6-1.2) mg/dl Est Cr Clr Drug Dosing 36.1 ml/min Est GFR ( Amer) 42.7 Est GFR (Non-Af Amer) 36.9 BUN/Creatinine Ratio 18.1 (10-20) Glucose 101 H (70-99) mg/dl Calcium 8.3 L (8.5-10.1) mg/dl Magnesium 2.5 H (1.8-2.4) mg/dl Total Bilirubin 0.2 (0.1-1) mg/dl AST 12 L (15-37) U/L ALT 15 (12-78) U/L Alkaline Phosphatase 82 (45-117) U/L Troponin I < 0.015 (0-0.045) ng/ml Total Protein 6.9 (6.4-8.2) gm/dl Albumin 3.0 L (3.4-5.0) gm/dl Globulin 3.9 (2.5-4.0) gm/dl Albumin/Globulin Ratio 0.8 L (0.9-2) TSH 0.812 (0.300-4.500) uIu/ml Urine Color Urine Appearance (Clear) Urine pH (4.5-7.5) Ur Specific [place] (1.000-1.030) Urine Protein (Negative) Urine Glucose (UA) (Negative) Urine Ketones (Negative) Urine Blood (Negative) Urine Nitrite (Negative) Urine Bilirubin (Negative) Urine Urobilinogen (Negative) Ur Leukocyte Esterase (Negative) Valproic Acid (50-100) mcg/ml 06/30/18 07/01/18 07/01/18 Range/Units 22:05 01:55 05:49 WBC 8.24 (4.8-10.8) K/uL RBC 3.13 L (4.2-5.4) M/uL Hgb 8.9 L (12.0-16.0) g/dL Hct 28.6 L (37-47) % MCV 91.4 (80-100) fL MCH 28.4 (25-34) pg MCHC 31.1 L (32-36) g/dL RDW Std Deviation 50.6 H (36.4-46.3) fL RDW Coeff of Calvin 15.2 H (11.5-14.5) % Plt Count 266 (130-400) K/uL MPV 8.7 (7.4-10.4) fL Immature Gran % (Auto) 0.2 % Neut % (Auto) 63.7 % Lymph % (Auto) 21.0 % [place] % (Auto) 11.0 % Eos % (Auto) 3.9 % Baso % (Auto) 0.2 % Immature Gran # (Auto) 0.02 (0.00-0.02) K/uL Neut # (Auto) 5.24 (1.4-6.5) K/uL Lymph # (Auto) 1.73 (1.2-3.4) K/uL [place] # (Auto) 0.91 H (0.11-0.59) K/uL Eos # (Auto) 0.32 (0-0.5) K/uL Baso # (Auto) 0.02 (0-0.2) K/uL RBC Morphology Unremarkable PT (9.0-12.0) Seconds INR (0.9-1.1) APTT (21.0-31.0) Seconds PTT Ratio Sodium (136-145) mmol/L Potassium (3.5-5.1) mmol/L Chloride (98-107) mmol/L Carbon Dioxide (21-32) mmol/L Anion Gap (3-11) BUN (7-18) mg/dl Creatinine (0.6-1.2) mg/dl Est Cr Clr Drug Dosing ml/min Est GFR ( Amer) Est GFR (Non-Af Amer) BUN/Creatinine Ratio (10-20) Glucose (70-99) mg/dl Calcium (8.5-10.1) mg/dl Magnesium (1.8-2.4) mg/dl Total Bilirubin (0.1-1) mg/dl AST (15-37) U/L ALT (12-78) U/L Alkaline Phosphatase (45-117) U/L Troponin I < 0.015 (0-0.045) ng/ml Total Protein (6.4-8.2) gm/dl Albumin (3.4-5.0) gm/dl Globulin (2.5-4.0) gm/dl Albumin/Globulin Ratio (0.9-2) TSH (0.300-4.500) uIu/ml Urine Color Urine Appearance (Clear) Urine pH (4.5-7.5) Ur Specific [place] (1.000-1.030) Urine Protein (Negative) Urine Glucose (UA) (Negative) Urine Ketones (Negative) Urine Blood (Negative) Urine Nitrite (Negative) Urine Bilirubin (Negative) Urine Urobilinogen (Negative) Ur Leukocyte Esterase (Negative) Valproic Acid 50 (50-100) mcg/ml 07/01/18 07/01/18 07/01/18 Range/Units 05:49 05:49 07:00 WBC (4.8-10.8) K/uL RBC (4.2-5.4) M/uL Hgb (12.0-16.0) g/dL Hct (37-47) % MCV (80-100) fL MCH (25-34) pg MCHC (32-36) g/dL RDW Std Deviation (36.4-46.3) fL RDW Coeff of Calvin (11.5-14.5) % Plt Count (130-400) K/uL MPV (7.4-10.4) fL Immature Gran % (Auto) % Neut % (Auto) % Lymph % (Auto) % [place] % (Auto) % Eos % (Auto) % Baso % (Auto) % Immature Gran # (Auto) (0.00-0.02) K/uL Neut # (Auto) (1.4-6.5) K/uL Lymph # (Auto) (1.2-3.4) K/uL [place] # (Auto) (0.11-0.59) K/uL Eos # (Auto) (0-0.5) K/uL Baso # (Auto) (0-0.2) K/uL RBC Morphology PT 10.0 (9.0-12.0) Seconds INR 1.0 (0.9-1.1) APTT 27.2 (21.0-31.0) Seconds PTT Ratio 1.0 Sodium 138 (136-145) mmol/L Potassium 4.9 (3.5-5.1) mmol/L Chloride 107 (98-107) mmol/L Carbon Dioxide 24 (21-32) mmol/L Anion Gap 7.0 (3-11) BUN 21 H (7-18) mg/dl Creatinine 1.39 H (0.6-1.2) mg/dl Est Cr Clr Drug Dosing 34.5 ml/min Est GFR ( Amer) 40.5 Est GFR (Non-Af Amer) 35.0 BUN/Creatinine Ratio 15.4 (10-20) Glucose 90 (70-99) mg/dl Calcium 8.4 L (8.5-10.1) mg/dl Magnesium (1.8-2.4) mg/dl Total Bilirubin 0.3 (0.1-1) mg/dl AST 8 L (15-37) U/L ALT 14 (12-78) U/L Alkaline Phosphatase 71 (45-117) U/L Troponin I (0-0.045) ng/ml Total Protein 6.6 (6.4-8.2) gm/dl Albumin 3.0 L (3.4-5.0) gm/dl Globulin 3.6 (2.5-4.0) gm/dl Albumin/Globulin Ratio 0.8 L (0.9-2) TSH (0.300-4.500) uIu/ml Urine Color Yellow Urine Appearance Clear (Clear) Urine pH 6.5 (4.5-7.5) Ur Specific [place] 1.009 (1.000-1.030) Urine Protein Negative (Negative) Urine Glucose (UA) Negative (Negative) Urine Ketones Negative (Negative) Urine Blood Negative (Negative) Urine Nitrite Negative (Negative) Urine Bilirubin Negative (Negative) Urine Urobilinogen Negative (Negative) Ur Leukocyte Esterase Negative (Negative) Valproic Acid (50-100) mcg/ml Imaging Data Radiologist's Impression: Radiology results as stated below per my review and the radiologist's interpretation: XR chest 1V portable CLINICAL HISTORY: 83 years-old Female presenting with weakness. TECHNIQUE: Portable upright AP view of the chest was obtained. COMPARISON: 07/13/[address] from 06/07/2018. FINDINGS: Median sternotomy wires with extensive mediastinal surgical clips. Atherosclerosis of aortic arch. Cardiac silhouette top normal in size. Overall coarsened lung markings with mild hyperinflation. Nodular opacity at the left lung base measuring 1.8 cm. No pleural effusion or pneumothorax. Reverse total right shoulder arthroplasty. Osteopenia suspected. Multilevel degenerative changes of the spine. IMPRESSION: 1. 1.8 cm left lower lung nodule. This was better evaluated with recent CT. No new superimposed infiltrate. 2. Suspected underlying emphysema. Electronically signed by: Dwayne Davalos M.D. 06/30/2018 7:29 PM ECG Data Attestation: I personally reviewed and interpreted this ECG as follows: Indication: other (overdose (accidental)) Rate (beats per minute): 68 Rhythm: normal sinus Findings: + other (T wave abnormalities) and + Q waves (lateral); no ectopy Comparison ECG Date: from (07/13/17) Change: no significant change Blood Pressure Blood Pressure Findings: Normal blood pressure MDM Narrative The patient is an 83-year-old female who presented to the emergency department after taking an accidental overdose of her medications. The patient took an extra dose of her morning medications. She took her normal medications at 9 AM but then at approximately 1430 today she took another dose of each of her morning medications. I reviewed the medications exactly with the daughter. Poison control was notified. They recommended 4-hour observation of the patient. After 4 hours the patient continued to have hypotension. The patient was then treated with IV fluids. I then obtained laboratory and radiographic studies. I discussed the patient's laboratory and radiographic studies with her and her family members. She continues to have hypotension. For this reason I have notified the [facility] hospitalist. They have agreed to evaluate the patient in the emergency department for further management and disposition. Impression & Plan Accidental medication overdose, Hypotension, Anemia Discharge Plan Visit Data *Final* Discharge Date/Time: 07/01/18 00:14 Chief Complaint: Overdose (Accidental) Stated Complaint: TOOK DOUBLE OF HER MEDS ED Provider: Markus Desir Discharge Problem: Accidental medication overdose, Hypotension, Anemia Patient Disposition: Admitted As Inpatient Discharge Instructions Interventions: ED Discharge Assessment Last Done: 07/01/18 00:14 The scribe's documentation has been prepared under my direction and personally reviewed by me in its entirety. I confirm that the note above accurately reflects all work, treatment, procedures, and medical decision making performed by me.
[2018-06-30] MEDS ORDERED: SODIUM CHLORIDE 0.9% 500 ML IV SCH (19:00)
[2018-06-30 19:19] LABS: Basophils # (auto) 0.03 K/uL (0-0.2); Basophils % (auto) 0.3 %; Eosinophils # (auto) 0.22 K/uL (0-0.5); Eosinophils % (auto) 2.4 %; Hematocrit (blood only) 29.1 % (37-47); Hemoglobin 9.2 g/dL (12.0-16.0); Immature Granulocytes # (auto) 0.03 K/uL (0.00-0.02); Immature Granulocytes % (auto) 0.3 %; Lymphocytes # (auto) 1.28 K/uL (1.2-3.4); Lymphocytes % (auto) 13.8 %; Mean Corpuscular Hgb Conc 31.6 g/dL (32-36); Mean Corpuscular Volume 92.7 fL (80-100); Mean Platelet Volume 9.3 fL (7.4-10.4); Monocytes # (auto) 0.97 K/uL (0.11-0.59); Monocytes % (auto) 10.5 %; Neutrophils # (auto) 6.75 K/uL (1.4-6.5); Neutrophils % (auto) 72.7 %; Platelet Count 294 K/uL (130-400); RDW Coefficient of Variation 15.3 % (11.5-14.5); RDW Standard Deviation 51.9 fL (36.4-46.3); Red Blood Count 3.14 M/uL (4.2-5.4); White Blood Count 9.28 K/uL (4.8-10.8)
--- NOTE | 2018-06-30 19:30 | XRay Report ---
XR chest 1V portable CLINICAL HISTORY: 83 years-old Female presenting with weakness. TECHNIQUE: Portable upright AP view of the chest was obtained. COMPARISON: 07/13/[address] from 06/07/2018. FINDINGS: Median sternotomy wires with extensive mediastinal surgical clips. Atherosclerosis of aortic arch. Ca rdiac silhouette top normal in size. Overall coarsened lung markings with mild hyperinflation. Nodula r opacity at the left lung base measuring 1.8 cm. No pleural effusion or pneumothorax. Reverse total right shoulder arthroplasty. Osteopenia suspected. Multilevel degenerative changes of the spine. IMPRESSION: 1. 1.8 cm left lower lung nodule. This was better evaluated with recent CT. No new superimposed infi ltrate. 2. Suspected underlying emphysema. Electronically signed by: Dwayne Davalos M.D. 06/30/2018 7:29 PM
[2018-06-30 19:38] LABS: Alanine Aminotransferase 15 U/L (12-78); Aspartate Aminotransferase 12 U/L (15-37); BUN Creatinine Ratio 18.1 (10-20); Blood Urea Nitrogen 24 mg/dl (7-18); Calcium 8.3 mg/dl (8.5-10.1); Carbon Dioxide 26 mmol/L (21-32); Chloride 107 mmol/L (98-107); Creatinine Clr Calc Pharmacy 36.1 ml/min; Est GFR (African American) 42.7; Est GFR (Non-African American) 36.9; Glucose 101 mg/dl (70-99); Magnesium 2.5 mg/dl (1.8-2.4); Sodium 138 mmol/L (136-145)
[2018-06-30 19:48] LABS: Albumin Globulin Ratio 0.8 (0.9-2); Alkaline Phosphatase 82 U/L (45-117); Bilirubin,Total 0.2 mg/dl (0.1-1); Globulin 3.9 gm/dl (2.5-4.0); Total Protein 6.9 gm/dl (6.4-8.2); Troponin I < 0.015 ng/ml (0-0.045)
--- NOTE | 2018-06-30 23:36 | History & Physical Report ---
Date of Service June 30, 2018 Assessment & Plan (1) Accidental medication overdose: The patient was relatively hypotensive initially upon presentation to the emergency department, but did improve with fluid bolus. Per recommendation of poison control center, patient be admitted to telemetry unit for cardiac rhythm monitoring. Present on Admission?: Yes (2) Pulmonary nodule, left: The patient has a pending appointment with Dr. Del Rosario, thoracic surgery on July 12. Will consult him to see patient this admission Present on Admission?: Yes (3) CAD (coronary artery disease): CAD/hypertension/history of coronary stents/status post CABG-- Continue aspirin, clopidogrel, irbesartan, isosorbide mononitrate and metoprolol succinate in the a.m. tomorrow if blood pressure improves appropriately. Present on Admission?: Yes (4) Hypertension: As above. Present on Admission?: Yes (5) Hypotension: As above. Present on Admission?: Yes History of Present Illness Chief Complaint: The patient presents to the emergency department, after accidentally taking all of her medications a second time at 1430 hrs. today. Primary Care Provider: Irma Reid The patient is an 83-year-old female, whose daughter reports that she has been gradually developing memory dysfunction, who is brought to the emergency department after having inadvertently taken her next days medications at 1430 hrs. today. The patient herself has no complaints. The Poison Control Center was called by the emergency department, and it was recommended the patient be admitted to the monitoring unit for the next 12-24 hours. The patient's daughter has become gradually more concerned that the patient has been having worsening memory issues. The daughter usually puts her pills out for the patient, and reports that from now on, she will keep the remainder of medications placed away where the patient will not inadvertently find them as she did today. The patient's daughter also reports that they have an appointment with Dr. Macario on July 12 to go over imaging studies which have revealed a nodule in her left lower lobe of her lungs, which she says they have not been outright told is cancer but they think is cancer. The patient also follows with cardiology Dr. Padilla. Allergies Allergy/AdvReac Type Severity Reaction Status Date / Time donepezil Allergy Intermediate dirrhea Verified 06/30/18 15:26 Penicillins Allergy Unknown SWELLING Verified 12/27/18 15:26 Sulfa (Sulfonamide Allergy Unknown SWELLING Verified 06/30/18 15:26 Antibiotics) Home Medications Home Medications Medication Instructions Recorded Confirmed Type acetaminophen 1,000 mg PO QAM 06/30/18 06/30/18 History acetaminophen 1,500 mg PO QPM 06/30/18 06/30/18 History alprazolam 0.25 mg PO HS PRN 06/30/18 06/30/18 History aspirin 81 mg PO QAM 06/30/18 06/30/18 History clopidogrel 75 mg PO QAM 06/30/18 06/30/18 History divalproex 250 mg PO QAM 06/30/18 06/30/18 History duloxetine 60 mg PO QAM 06/30/18 06/30/18 History famotidine 20 mg PO QAM 06/30/18 06/30/18 History kqulnyhyutj-osddiqsvi-ihhpmqpa 1 puff INHALATION QAM 06/30/18 06/30/18 History [Trelegy Ellipta] ipratropium-albuterol 3 ml INHALATION Q4H PRN 06/30/18 06/30/18 History irbesartan 75 mg PO QAM 06/30/18 06/30/18 History isosorbide mononitrate 60 mg PO QAM 06/30/18 06/30/18 History metoprolol succinate 25 mg PO QAM 06/30/18 06/30/18 History nitroglycerin [Nitrostat] 0.4 mg SUBLINGUAL DIRECTED PRN 06/30/18 06/30/18 History simvastatin 40 mg PO QPM 06/30/18 06/30/18 History Past Med/Surg History Medical History Hypertension (Chronic) Brain aneurysm (Chronic) Heart disease (Chronic) CAD (coronary artery disease) Hx of myocardial infarction Surgical History S/P shoulder surgery Hx of cholecystectomy (Chronic) Hx of CABG (Chronic) H/O heart artery stent (Chronic) Social History marital status: single Current Living Situation: Family current occupational status: retired Other Information That Helps Us Care for You: No Feels Safe at Home: Yes Safety Concerns: Feels Safe At This Time Smoking Status: Current every day smoker Tobacco Type: cigarettes Do You Dip or Chew Tobacco: No Second Hand Exposure: No Tobacco Cessation Education Requested by Patient: No Hx Alcohol Use: No Hx Substance Use: No Beliefs That Will Affect Care: None Preferred Language: Martiniquais Communication Ability: Effective Sand Blaster Required: No Review of Systems The patient denies chest pain, palpitations, shortness of breath, dyspnea on exertion, cough, lower extremity swelling, sore throat, fevers, chills, sweats, weight change, fatigue, nausea, vomiting, diarrhea , constipation, abdominal pain, pelvic pain, blood in urine or stool, dysuria, urinary frequency or urgency, lightheadedness , dizziness, headache, memory loss, loss of consciousness, rash, abnormal bruising or bleeding, imbalance, focal or generalized weakness, numbness or tingling in arms or legs, generalized arthralgias or myalgias, back or neck pain , or night sweats. The review of systems is otherwise negative other than for that already noted above, and at least 10 systems have been reviewed. Physical Exam 2 Vital Signs (Past 24 Hours): Last Vital Signs Temp 36.6 C 06/30/18 15:00 Pulse 74 06/30/18 23:00 Resp 19 06/30/18 23:00 BP 118/70 06/30/18 23:00 Pulse Ox 93 06/30/18 23:00 Physical Exam: The patient is awake, alert and oriented 3, well developed and well nourished, normocephalic and atraumatic, lying in bed and in no acute distress. HEENT--PERRL, EOMI, mucous membranes and oropharynx dry. Neck--supple. No JVD. No bruits. Thyroid normal, trachea midline, no adenopathy. Heart--normal S1 and S2. No murmurs, rubs or gallops. Lungs--clear bilaterally, no respiratory distress, no accessory muscle use. Abdomen--normal bowel sounds and soft. Nontender. Nondistended, no hernias or masses, no organomegaly. Extremities--no cyanosis or clubbing. No edema. There are good distal pulses b/ l. Dermatologic--normal skin turgor, normal color, no abnormal lymph nodes, no rash. Neurologic--cranial nerves II through XII grossly intact. Rheumatologic--normal range of motion. Psychiatric--normal affect. Results & Data Laboratory Results Laboratory Results WBC 9.28 K/uL (4.8-10.8) 06/30/18 19:05 RBC 3.14 M/uL (4.2-5.4) L 06/30/18 19:05 Hgb 9.2 g/dL (12.0-16.0) L 06/30/18 19:05 Hct 29.1 % (37-47) L 06/30/18 19:05 MCV 92.7 fL (80-100) 06/30/18 19:05 MCH 29.3 pg (25-34) 06/30/18 19:05 MCHC 31.6 g/dL (32-36) L 06/30/18 19:05 RDW Std Deviation 51.9 fL (36.4-46.3) H 06/30/18 19:05 RDW Coeff of Calvin 15.3 % (11.5-14.5) H 06/30/18 19:05 Plt Count 294 K/uL (130-400) 06/30/18 19:05 MPV 9.3 fL (7.4-10.4) 06/30/18 19:05 Immature Gran % (Auto) 0.3 % 06/30/18 19:05 Neut % (Auto) 72.7 % 06/30/18 19:05 Lymph % (Auto) 13.8 % 06/30/18 19:05 [place] % (Auto) 10.5 % 06/30/18 19:05 Eos % (Auto) 2.4 % 06/30/18 19:05 Baso % (Auto) 0.3 % 06/30/18 19:05 Immature Gran # (Auto) 0.03 K/uL (0.00-0.02) H 06/30/18 19:05 Neut # (Auto) 6.75 K/uL (1.4-6.5) H 06/30/18 19:05 Lymph # (Auto) 1.28 K/uL (1.2-3.4) 06/30/18 19:05 [place] # (Auto) 0.97 K/uL (0.11-0.59) H 06/30/18 19:05 Eos # (Auto) 0.22 K/uL (0-0.5) 06/30/18 19:05 Baso # (Auto) 0.03 K/uL (0-0.2) 06/30/18 19:05 PT 10.0 Seconds (9.0-12.0) 06/30/18 19:05 INR 1.0 (0.9-1.1) 06/30/18 19:05 Sodium 138 mmol/L (136-145) 06/30/18 19:05 Potassium 5.0 mmol/L (3.5-5.1) 06/30/18 19:05 Chloride 107 mmol/L (98-107) 06/30/18 19:05 Carbon Dioxide 26 mmol/L (21-32) 06/30/18 19:05 Anion Gap 5.0 (3-11) 06/30/18 19:05 BUN 24 mg/dl (7-18) H 06/30/18 19:05 Creatinine 1.33 mg/dl (0.6-1.2) H 06/30/18 19:05 Est Cr Clr Drug Dosing 36.1 ml/min 06/30/18 19:05 Est GFR ( Amer) 42.7 06/30/18 19:05 Est GFR (Non-Af Amer) 36.9 06/30/18 19:05 BUN/Creatinine Ratio 18.1 (10-20) 06/30/18 19:05 Glucose 101 mg/dl (70-99) H 06/30/18 19:05 Calcium 8.3 mg/dl (8.5-10.1) L 06/30/18 19:05 Magnesium 2.5 mg/dl (1.8-2.4) H 06/30/18 19:05 Total Bilirubin 0.2 mg/dl (0.1-1) 06/30/18 19:05 AST 12 U/L (15-37) L 06/30/18 19:05 ALT 15 U/L (12-78) 06/30/18 19:05 Alkaline Phosphatase 82 U/L (45-117) 06/30/18 19:05 Troponin I < 0.015 ng/ml (0-0.045) 07/01/18 01:55 Total Protein 6.9 gm/dl (6.4-8.2) 06/30/18 19:05 Albumin 3.0 gm/dl (3.4-5.0) L 06/30/18 19:05 Globulin 3.9 gm/dl (2.5-4.0) 06/30/18 19:05 Albumin/Globulin Ratio 0.8 (0.9-2) L 06/30/18 19:05 TSH 0.812 uIu/ml (0.300-4.500) 06/30/18 19:05 Valproic Acid 50 mcg/ml (50-100) 06/30/18 22:05 Diagnostic Findings [facility], [place] [phone] XRay Report Patient: MARY MILLS Date: 06/30/18 MR#: [id number] Acct ID:[id number]: Date: 5City Zip: [place] [address] Age: 83Location: ED Sex: F Room/Bed: Att Phy: Diagnosis: TOOK DOUBLE OF HER MEDS Bernice Phy: Irma Reid, MDService Date: 06/30/18 Fam Phy: Interpreting Phy: Dwayne Davalos MD Admit Phy: Ordering Phy: Markus Desir DO cc: ~ XR chest 1V portable CLINICAL HISTORY: 83 years-old Female presenting with weakness. TECHNIQUE: Portable upright AP view of the chest was obtained. COMPARISON: 07/13/[address] from 06/07/2018. FINDINGS: Median sternotomy wires with extensive mediastinal surgical clips. Atherosclerosis of aortic arch. Cardiac silhouette top normal in size. Overall coarsened lung markings with mild hyperinflation. Nodular opacity at the left lung base measuring 1.8 cm. No pleural effusion or pneumothorax. Reverse total right shoulder arthroplasty. Osteopenia suspected. Multilevel degenerative changes of the spine. IMPRESSION: 1. 1.8 cm left lower lung nodule. This was better evaluated with recent CT. No new superimposed infiltrate. 2. Suspected underlying emphysema. Electronically signed by: Dwayne Davalos M.D. 06/30/2018 7:29 PM Dictated: 06/30/181926 Transcribed: 06/30/181926 Code Status & VTE Plan Code Status Full code VTE Prophylaxis Plan VTE Prophylaxis will be ordered: Yes _ (1) Accidental medication overdose Encounter type: initial encounter Qualified Code(s): T50.901A - Poisoning by unspecified drugs, medicaments and biological substances, accidental ( unintentional), initial encounter (2) Hypotension Hypotension type: unspecified hypotension type Trimester: Qualified Code(s) : I95.9 - Hypotension, unspecified
[2018-07-01] MEDS ORDERED: POLYETHYLENE (MIRALAX) 17 GM PACK PO PRN (01:23)
[2018-07-01] MEDS ORDERED: NITROGLYCERIN SL 0.4 MG/TAB TAB SL PRN (01:23)
[2018-07-01] MEDS ORDERED: ALBUT/IPRATROP 3MG/0.5MG NEB 3 ML VIAL INH PRN (01:23)
[2018-07-01] MEDS ORDERED: ALPRAZolam 0.25 MG TABLET PO PRN (01:23)
[2018-07-01] MEDS ORDERED: ALUMINUM/MAGNESIUM SUSP 30 ML UDC PO PRN (01:23)
[2018-07-01] MEDS ORDERED: MAGNESIUM HYDROXIDE SUSP 30 ML UDC PO PRN (01:23)
[2018-07-01] MEDS ORDERED: ONDANSETRON INJ 2 MG/ML 2 ML VIAL IV PRN (01:23)
[2018-07-01 06:05] LABS: Basophils # (auto) 0.02 K/uL (0-0.2); Basophils % (auto) 0.2 %; Eosinophils # (auto) 0.32 K/uL (0-0.5); Eosinophils % (auto) 3.9 %; Hematocrit (blood only) 28.6 % (37-47); Hemoglobin 8.9 g/dL (12.0-16.0); Immature Granulocytes # (auto) 0.02 K/uL (0.00-0.02); Immature Granulocytes % (auto) 0.2 %; Lymphocytes # (auto) 1.73 K/uL (1.2-3.4); Mean Corpuscular Hgb Conc 31.1 g/dL (32-36); Mean Corpuscular Volume 91.4 fL (80-100); Mean Platelet Volume 8.7 fL (7.4-10.4); Monocytes # (auto) 0.91 K/uL (0.11-0.59); Neutrophils # (auto) 5.24 K/uL (1.4-6.5); Neutrophils % (auto) 63.7 %; Platelet Count 266 K/uL (130-400); RDW Coefficient of Variation 15.2 % (11.5-14.5); RDW Standard Deviation 50.6 fL (36.4-46.3); Red Blood Count 3.13 M/uL (4.2-5.4); White Blood Count 8.24 K/uL (4.8-10.8)
[2018-07-01 06:15] LABS: Partial Thromboplastin Time 27.2 Seconds (21.0-31.0)
[2018-07-01 06:34] LABS: RBC Morphology Unremarkable
[2018-07-01 06:35] LABS: BUN Creatinine Ratio 15.4 (10-20); Calcium 8.4 mg/dl (8.5-10.1); Creatinine Clr Calc Pharmacy 34.5 ml/min; Est GFR (African American) 40.5; Potassium 4.9 mmol/L (3.5-5.1)
[2018-07-01 06:38] LABS: Albumin Globulin Ratio 0.8 (0.9-2); Bilirubin,Total 0.3 mg/dl (0.1-1); Globulin 3.6 gm/dl (2.5-4.0); Total Protein 6.6 gm/dl (6.4-8.2)
--- NOTE | 2018-07-01 08:23 | Hospitalist Progress Note ---
Date of Service July 01, 2018 Assessment & Plan (1) Accidental medication overdose: The patient was relatively hypotensive initially upon presentation to the emergency department, but did improve with fluid bolus. She remained stable (2) Pulmonary nodule, left: The patient has a pending appointment with Dr. Del Rosario, thoracic surgery on July 12. They have been consulted and recommended continue to follow-up as mentioned for his outpatient her outpatient appointment (3) CAD (coronary artery disease): CAD/hypertension/history of coronary stents/status post CABG-- Continue aspirin, clopidogrel, irbesartan, isosorbide mononitrate and metoprolol succinate (4) Hypertension: As above. (5) Hypotension: Resolved Subjective Patient is fatigued but otherwise feels fine she is tolerating her meals will be evaluated by PT and OT and a urine culture is pending she does live at home and is planning to return there she had no untoward side effects from her additional dosing of medications Review of Systems ROS: well nourished well developed. He does feel mildly fatigued and tired but had a poor night sleep in the hospital last night No double vision blurry vision No problems with speech or swallowing No palpitations, chest pain or pressure No Wheezing or breathing issues No abdominal pain nausea vomiting diarrhea No burning urine urine frequency or changes in color No focal joint pain or muscle pain No skin rashes or oral lesions No unusual bruising or bleeding No focused back pain or numbness or loss of strength No new changes in memory or confusion but does relate that she is having increasing problems with her memory Physical Exam 2 Vital Signs (Past 24 Hours): Last Vital Signs Temp 36.7 C 07/01/18 07:40 Pulse 83 07/01/18 07:40 Resp 20 07/01/18 07:40 BP 125/66 07/01/18 07:40 Pulse Ox 90 07/01/18 07:40 The patient appeared well nourished and normally developed. Vital signs as documented. Head exam is unremarkable. No scleral icterus or corneal arcus noted Neck is without jugular venous distension, thyromegaly, or lymphademopathy Lungs are clear to auscultation and percussion. Cardiac exam reveals Rhythm is regular. Very mild systolic murmur Abdominal exam reveals normal bowel sounds, no masses, no organomegaly Extremities are nonedematous and both pedal pulses are normal. Neurologic exam is A&Ox3, no focal deficits, strength is equal bilateral Skin is warm Dry without bruises or lesions _ (1) Accidental medication overdose Encounter type: initial encounter Qualified Code(s): T50.901A - Poisoning by unspecified drugs, medicaments and biological substances, accidental ( unintentional), initial encounter (2) Hypotension Hypotension type: unspecified hypotension type Trimester: Qualified Code(s) : I95.9 - Hypotension, unspecified
[2018-07-01] MEDS ORDERED: FAMOTIDINE 20 MG TAB PO SCH (09:00)
[2018-07-01] MEDS ORDERED: CLOPIDOGREL BISULFATE 75 MG TAB PO SCH (09:00)
[2018-07-01] MEDS ORDERED: DIVALPROEX DELAY RELEASE 250 MG TABEC PO SCH (09:00)
[2018-07-01] MEDS ORDERED: ACETAMINOPHEN 500 MG TAB PO SCH ×2 (09:00→21:00)
[2018-07-01] MEDS ORDERED: ISOSORBIDE MONO EXTENDED REL 60 MG TABCR PO SCH (09:00)
[2018-07-01] MEDS ORDERED: IRBESARTAN 75 MG TAB PO SCH (09:00)
[2018-07-01] MEDS ORDERED: DULOXETINE HCL 60 MG CAP PO SCH (09:00)
[2018-07-01] MEDS ORDERED: ASPIRIN 81 MG ECTAB PO SCH (09:00)
[2018-07-01] MEDS ORDERED: METOPROLOL SUCC 25MG EXT REL TAB PO SCH (09:00)
[2018-07-01 09:19] LABS: Appearance Urine Clear (Clear); Bilirubin Urine Negative (Negative); Color Urine Yellow; Glucose Urine UA Negative (Negative); Ketones Urine Negative (Negative); Leukocyte Esterase Urine Negative (Negative); Nitrite Urine Negative (Negative); Protein Urine Negative (Negative); Specific Gravity Urine 1.009 (1.000-1.030); Urobilinogen Urine Negative (Negative); pH Urine 6.5 (4.5-7.5)
[2018-07-01 11:53] VITALS: BP 121/54; PULSE 76; TEMP 98.2; O2SAT 91
--- NOTE | 2018-07-01 13:48 | Discharge Summary ---
Date of Service July 01, 2018 Admission HPI Per Admitting Provider The patient is an 83-year-old female, whose daughter reports that she has been gradually developing memory dysfunction, who is brought to the emergency department after having inadvertently taken her next days medications at 1430 hrs. today. The patient herself has no complaints. The Poison Control Center was called by the emergency department, and it was recommended the patient be admitted to the monitoring unit for the next 12-24 hours. The patient's daughter has become gradually more concerned that the patient has been having worsening memory issues. The daughter usually puts her pills out for the patient, and reports that from now on, she will keep the remainder of medications placed away where the patient will not inadvertently find them as she did today. The patient's daughter also reports that they have an appointment with Dr. Macario on July 12 to go over imaging studies which have revealed a nodule in her left lower lobe of her lungs, which she says they have not been outright told is cancer but they think is cancer. The patient also follows with cardiology Dr. Padilla. Principal Diagnosis unintentional drug overdose Discharge Exam Constitutional well developed and average body habitus Eyes no conjunctival abnormality and no scleral abnormality Neck normal visual inspection and trachea midline Respiratory normal respiratory effort; no respiratory distress Auscultation: lungs clear to auscultation bilaterally Cardiovascular RRR, no murmur, no edema Gastrointestinal (Abdomen) normal bowel sounds, soft, nontender, no hepatosplenomegaly Musculoskeletal no cyanosis or clubbing, extremities motor strength 5/5 Discharge Data Allergies Allergy/AdvReac Type Severity Reaction Status Date / Time donepezil Allergy Intermediate dirrhea Verified 06/30/18 15:26 Penicillins Allergy Unknown SWELLING Verified 06/30/18 15:26 Sulfa (Sulfonamide Allergy Unknown SWELLING Verified 06/30/18 15:26 Antibiotics) Consultations 06/30/18 20:51 ED Decision to Admit Stat 07/01/18 01:23 Consult Case Management - Discharge Planning Routine 07/01/18 05:17 Consult Thoracic Surgery Routine Hospital Course (1) Accidental medication overdose: The patient was relatively hypotensive initially upon presentation to the emergency department, but did improve with fluid bolus. She remained stable (2) Pulmonary nodule, left: The patient has a pending appointment with Dr. Del Rosario, thoracic surgery on July 12. They have been consulted and recommended continue to follow-up as mentioned for his outpatient her outpatient appointment (3) CAD (coronary artery disease): CAD/hypertension/history of coronary stents/status post CABG-- Continue aspirin, clopidogrel, irbesartan, isosorbide mononitrate and metoprolol succinate (4) Hypertension: As above. (5) Hypotension: Resolved Total Time Total Time Spent Total Time Spent (In Minutes): greater than 30 minutes were required to prepare discharge Discharge Plan Discharge Items Patient Disposition: Home - Self-Care Reason For Visit: ALTERED MENTAL STATUS, ACCIDENTAL DRUG OVERDOSE Discharge Diagnosis: unintentional medication overdose Discharge Goals: Diagnostic testing Activity: Resume your previous activity Non-emergency contact: Primary Care Provider Call non-emergency contact if: you have any medication questions Follow-up/Referrals: Yang Del Rosario MD, FACS [Surgeon] - Irma Reid MD [Primary Care Provider] - Diet: Regular Addtl Provider Instructions: please follow up with your primary care provider Prescriptions: Continue ipratropium-albuterol 0.5 mg-3 mg(2.5 mg base)/3 mL solution for nebulization 3 ml Inhalation Q4H PRN (Reason: Shortness Of Breath) RF: 0 divalproex 250 mg tablet,delayed release (DR/EC) 250 mg PO QAM RF: 0 clopidogrel 75 mg tablet 75 mg PO QAM RF: 0 simvastatin 40 mg tablet 40 mg PO QPM RF: 0 isosorbide mononitrate 60 mg tablet extended release 24 hr 60 mg PO QAM RF: 0 alprazolam 0.25 mg tablet 0.25 mg PO HS PRN (Reason: Sleep) RF: 0 famotidine 20 mg tablet 20 mg PO QAM RF: 0 irbesartan 75 mg tablet 75 mg PO QAM RF: 0 metoprolol succinate 25 mg tablet extended release 24 hr 25 mg PO QAM RF: 0 duloxetine 60 mg capsule,delayed release(DR/EC) 60 mg PO QAM RF: 0 pfwzhltblaw-alytiknce-dgctocvj [Trelegy Ellipta] 100-62.5-25 mcg blister with device 1 puff Inhalation QAM RF: 0 aspirin 81 mg Tablet,Delayed Release (Dr/Ec) 81 mg PO QAM RF: 0 acetaminophen 500 mg Tablet 1,000 mg PO QAM RF: 0 acetaminophen 500 mg Tablet 1,500 mg PO QPM RF: 0 nitroglycerin [Nitrostat] 0.4 mg Tablet, Sublingual 0.4 mg Sublingual DIRECTED PRN (Reason: Chest Pain) RF: 0 Visit Report Forms: [facility] [employer] Stand-Alone Forms: [facility] Discharge Orders: Discharge Order (Routine); Ordered 07/01/18 Ordered By: Keenan Hook Admission Data Admit Date/Time: 06/30/18 23:36 Attending Provider: Keenan Hook Admit Provider: Bobo Rodarte Primary Care Provider: Irma Reid Other Providers: Bobo Rodarte ; Yang Del Rosario Service: Telemetry Other Pending Studies at Discharge: Yes Studies:: urine culture
--- NOTE | 2018-07-01 14:58 | Consultation Report ---
DATE OF CONSULTATION: 07/01/2018 SURGICAL CONSULTATION REASON FOR CONSULTATION: Lung nodule. HISTORY OF PRESENT ILLNESS: This is a very pleasant 83-year-old female. She was admitted to the hospital as there according to the chart, the patient had an accidental mixup in her medications resulting in her taking too much of her prescription medications. I did question the patient at bedside and asked her what she was doing in the hospital and she said it was merely because she felt weak. When questioned about her medicines, she says she did believe that she inadvertently took too much of her morning medication yesterday. The patient's daughter apparently lays her medications out for her, but despite this, the patient accidentally took too much of certain medication, but she could not specify which one. She did present to the Emergency Department yesterday and it was recommended the patient have 12-24 hours of telemetry monitoring. This patient does have a left pulmonary nodule and did have a scheduled appointment with Dr. Del Rosario on July 12, and for this reason, we are consulted to see the patient. The patient's outpatient records were reviewed and the patient has been seen by pulmonary medicine most recently on June 10 of this year. The patient has had imaging including a CT scan of the chest, most recently performed on June 07 of this year which showed a 1.8 x 1.2 cm lobular nodule in the periphery of the left lower lobe. The interpreting radiologist felt that this could potentially represent a bronchogenic malignancy. There was also noted to be a 1.8 cm irregularity noted in the left lower lobe. This CT scan was followed up with a PET scan on June 22 of this year and the left lower lobe lesion did show some marked FDG uptake again making this concerning for bronchogenic carcinoma. There is no evidence for any other metastatic disease noted. In addition to these imaging studies, the patient has had a pulmonary function test, most recently performed in 03/14/2018. These studies did reveal the patient had a DLCO of 48 and an FEV1 of 1.62, which was 76% of predicted values. I did question the patient about numerous symptoms, and to the best of her knowledge, she has not had any falls, head injuries or visual changes. She denies any tinnitus, vertigo, epistaxis or sore throat. She denies any chest pain. She does admit to a chronic cough, but does not cough up any blood to the best of her knowledge. She has not had any evidence of DVT or PE. She says she does get short of breath with activity and uses home oxygen at night. Questioned her about her activity and she says she is not very active, ambulating only short distances within her home. In addition, she does not report any weight loss. She denies any nausea, vomiting or dysuria. She denies any DVT, PE or history of stroke. According to the review of chart, however, the patient has apparently had some episodes of increasing forgetfulness recently. Since being in the hospital this time, this admission, the patient has had a chest x-ray that did show a left lung nodule consistent with findings noted on her CT scans. She also did have labs where a CBC revealed a white blood cell count as well as platelet count within normal range and hemoglobin and hematocrit of 8.9 and 28.6. Coagulation studies were noted to be within the normal range. Chemistry profile revealed sodium and potassium within normal range. BUN and creatinine were both slightly elevated at 21 and 1.3. There is no significant elevation of her LFTs. Her albumin is noted to be 3.0. Toxicology screen this admission did reveal her valproic acid level noted to be within the therapeutic range. PAST MEDICAL HISTORY: Includes the followin. Hypertension. 2. History of brain aneurysm. 3. Coronary artery disease. 4. History of myocardial infarction. 5. Anemia. PAST SURGICAL HISTORY: Includes: 1. History of shoulder surgery. 2. Coronary artery bypass grafting. 3. History of coronary artery stent. 4. Cholecystectomy. ALLERGIES: SHE HAS LISTED ALLERGIES TO ARICEPT, PENICILLIN WELL SULFA. CURRENT MEDICATIONS: Include: 1. Tylenol 1000 mg in the morning and 1500 mg in the evening. 2. Aluminum hydroxide as needed. 3. Albuterol inhaler as needed. 4. Xanax 0.25 mg at bedtime as needed. 5. Aspirin 81 mg daily. 6. Plavix 75 mg daily. 7. Depakote 250 mg in the morning. 8. Duloxetine 60 mg in the morning. 9. Pepcid 20 mg daily. 10. Irbesartan 75 mg in the morning. 11. Isosorbide 60 mg daily. 12. Magnesium hydroxide as needed. 13. Metoprolol 25 mg daily. 14. P.r.n. nitroglycerin. 15. P.r.n. Zofran. 16. P.r.n. MiraLax. 17. Zocor 40 mg daily. SOCIAL HISTORY: The patient smokes up to 3/4 pack of cigarettes per day and is a current smoker. She began smoking at approximately the age of 25 and has smoked a maximum of 2 packs of cigarettes per day, but as noted above, has cut down. The patient does report working at a glass plant and says that she was exposed to glass dust and fumes in this environment. FAMILY HISTORY: The patient's brother suffered from leukemia. REVIEW OF SYSTEMS: As noted above. PHYSICAL EXAMINATION: VITAL SIGNS: The patient's blood pressure is 125/66, pulse 83 and regular, respirations are 20 unlabored. She is afebrile. Temperature 36.7, pulse ox is 90% on room air. SKIN: Warm with good turgor. GENERAL: She is alert to person, place and time at this point. HEENT: Head is atraumatic, normocephalic. Eyes: Pupils equal, round, reactive to light and accommodation. Extraocular motions are intact. Ears: Auditory acuity is grossly intact. Nose: Nasal patency was intact. There is no evidence of epistaxis. Mouth: Has moist mucous membranes. NECK: Supple. There is no tracheal shift or stridor. CARDIOVASCULAR: Revealed regular rate and rhythm. LUNGS: Revealed occasional rhonchi noted bilaterally. This did appear to improve somewhat with cough. ABDOMEN: Soft and nondistended. EXTREMITIES: Revealed no cyanosis or clubbing. NEUROLOGIC: She could move all 4 extremities and did not note any focal deficits. DIAGNOSTIC DATA: As noted above. IMPRESSION: An 83-year-old female with left lung nodule. PLAN: Would like the patient to get over her current hospitalization. She will then meet with Dr. Del Rosario to determine the best course of action ascertaining what her left lung nodule may represent. Dr. Del Rosario will personally review the films at a later date and determine if the patient is amenable to having some type of bronchoscopic procedure or more invasive surgical intervention will be required. This is yet to be determined. As the patient has had a PET scan as well as PFTs, we will not order any further diagnostic studies at this time.
[2018-07-01] MEDS ORDERED: SIMVASTATIN 40 MG TAB PO SCH (21:00)
== END 2018-07-01 14:30 | disposition home or self-care (01) | DRG 918 ==
LOC: ED 14:49 → 2S 23:36 → SUATTDRO 23:36 → 2S 07-01 00:14

== ENCOUNTER 2018-08-10 05:09 | Inpatient (IN) ==
--- NOTE | 2018-07-25 10:35 | Anesthesiology Consultation ---
Date of Service July 25, 2018 Assessment & Plan (1) Encounter for pre-operative examination: Chart Review Chart Review: Pending: Refer to Additional Notes / Consult section Consults Requested cardiac (The patient follows Dr. Padilla. Please obtain a clearance note.) History Surgery Operation Date: 08/10/18 07:30 Proposed Procedures p Navigational Bronchoscopy with Marking using ICG, - Yang Del Rosario MD, FACS s Left Robotic Video Assisted Thoracoscopy with Left Lower Lobe Wedge Resection and Lymph Node Biopsy - Yang Del Rosario MD, FACS Height/Weight Height: 5 ft 6 in Weight: 85.729 kg Allergies Allergy/AdvReac Type Severity Reaction Status Date / Time donepezil Allergy Intermediate Diarrhea Verified 07/22/18 14:10 Penicillins Allergy Unknown SWELLING Verified 07/22/18 14:10 Sulfa (Sulfonamide Allergy Unknown SWELLING Verified 07/22/18 14:10 Antibiotics) Medications Home Medications Medication Instructions Recorded Confirmed Last Taken acetaminophen 1,000 mg PO QAM 06/30/18 07/22/18 07/10/18 acetaminophen 1,500 mg PO QPM 06/30/18 07/22/18 07/09/18 alprazolam [Xanax] 0.25 mg PO HS PRN 06/30/18 07/22/18 Unknown aspirin 81 mg PO QAM 06/30/18 07/22/18 07/10/18 clopidogrel [Plavix] 75 mg PO QAM 06/30/18 07/22/18 07/10/18 divalproex [Depakote] 250 mg PO QAM 06/30/18 07/22/18 07/10/18 duloxetine [Cymbalta] 60 mg PO QAM 06/30/18 07/22/18 07/10/18 famotidine [Pepcid] 20 mg PO QAM 06/30/18 07/22/18 07/10/18 ipkknmjqmft-xkikmttes-chipbybr 1 puff INHALATION QAM 06/30/18 07/22/18 07/10/18 [Trelegy Ellipta] ipratropium-albuterol 3 ml INHALATION Q4H PRN 06/30/18 07/22/18 07/10/18 irbesartan [Avapro] 75 mg PO QAM 06/30/18 07/22/1819 isosorbide mononitrate 60 mg PO QAM 06/30/18 07/22/18 07/10/18 metoprolol succinate [Toprol XL] 25 mg PO QAM 06/30/18 07/22/18 07/10/18 nitroglycerin [Nitrostat] 0.4 mg SUBLINGUAL DIRECTED PRN 06/30/18 07/22/18 Unknown simvastatin [Zocor] 40 mg PO HS 06/30/18 07/22/18 07/09/18 Past Medical History Medical History Emphysema lung Pulmonary nodule, left Hypertension (Chronic) Brain aneurysm (Chronic) Heart disease (Chronic) CAD (coronary artery disease) Hx of myocardial infarction COPD (chronic obstructive pulmonary disease) (Inactive) Anemia Chronic headaches Dementia Hyperlipidemia On home oxygen therapy 2L/MIN NC HS ONLY Osteoarthritis SOB (shortness of breath) Past Surgical History Surgical History S/P shoulder surgery RIGHT-PLATE AND SCREWS Hx of cholecystectomy (Chronic) Hx of CABG (Chronic) TRIPLE-AGE 61 H/O heart artery stent (Chronic) History of cardiac cath 1 STENT PLACED 10 YRS AGO Social History Smoking Status: Current every day smoker tobacco type: cigarettes Smoking cigarettes per day: 10 CIGS A DAY SINCE AGE 25 Do You Dip or Chew Tobacco: No Hx Alcohol Use: No Hx Substance Use: No Testing Electrocardiogram Date: 07/10/18 Findings: + NSR @ (79 bpm) incomplete RBBB LVH cannot rule out septal infarct lateral infarct T wave abnormality, consider anterior ischemia Chest X-Ray Date: 07/10/18 1. Cardiomegaly and emphysema with no acute cardiopulmonary abnormality identified. 2. A 1.9 cm left lower lobe nodular lesion remains highly concerning for neoplasm when correlated with the recent PET examination. Laboratory Results Laboratory Tests 07/10/18 07/22/18 13:25 08:16 WBC 13.03 H Hgb 8.9 L Plt Count 365 Sodium 136 Potassium 4.5 Chloride 105 Carbon Dioxide 23 BUN 26 H Creatinine 1.35 H Glucose 100 H
[2018-08-10] MEDS ORDERED: LR 15ML/HR IV SCH (06:00)
[2018-08-10] MEDS ORDERED: fentaNYL citrate 100 MCG/2 ML VIAL ONE (06:45)
[2018-08-10] MEDS ORDERED: CLINDAMYCIN 600 MG/54 ML D5W IV ONE (07:18)
[2018-08-10] MEDS ORDERED: SODIUM CHLORIDE 0.9% PF 50 ML VIAL ONE (07:20)
[2018-08-10] MEDS ORDERED: BUPIVACAINE LIPOSOME 1.3% 266 MG/20 ML VIAL ONE (07:20)
[2018-08-10] MEDS ORDERED: BUPIVACAINE 0.5 % 5 MG/1 ML MPF 30ML VIAL ONE (07:20)
--- NOTE | 2018-08-10 07:21 | History & Physical Bridge Note ---
Date of Service August 10, 2018 History & Physical Bridge Note I have examined the patient, reviewed the History & Physical and in the interval since the performance of the History & Physical I have noted the following changes of clinical significance: no changes noted
--- NOTE | 2018-08-10 07:31 | Anesthesiology Consultation ---
Date of Service August 10, 2018 Assessment & Plan (1) Encounter for pre-operative examination: Chart Review Chart Review: Acceptable Risk for Surgery and Patient NOT seen in Pre Admission Testing Consults Requested none ASA ASA4 Proposed Anesthesia Anesthesia Type: General Anesthesia Line Insertion: Arterial line Risk / Benefits Reviewed With: PT / POA / Parent / Guardian, Accepts Plan and Informed Consent Obtained NPO Date Last Intake of Fluids: 08/09/18 Time Last Intake of Fluids: 20:00 Last Intake of Fluids Comment: sip of water 0345 w/meds Date Last Intake of Solids: 08/09/18 Time Last Intake of Solids: 19:00 History Surgery Operation Date: 08/10/18 07:30 Proposed Procedures p Navigational Bronchoscopy with Marking using ICG; - Yang Del Rosario MD, FACS s Left Robotic Video-Assisted Thoracoscopy with Left Lower Lobe Wedge Resection and Lymph Node Biopsy - Yang Del Rosario MD, FACS Height/Weight Height: 5 ft 6 in Weight: 88.995 kg Allergies Allergy/AdvReac Type Severity Reaction Status Date / Time donepezil Allergy Intermediate Diarrhea Verified 08/10/18 05:44 Penicillins Allergy Unknown SWELLING Verified 08/10/18 05:44 Sulfa (Sulfonamide Allergy Unknown SWELLING Verified 08/10/18 05:44 Antibiotics) Medications Home Medications Medication Instructions Recorded Confirmed Last Taken acetaminophen 1,000 mg PO QAM 06/30/18 08/10/18 08/10/18 03:45 acetaminophen 1,500 mg PO QPM 06/30/18 08/10/18 08/09/18 20:00 alprazolam [Xanax] 0.25 mg PO HS PRN 06/30/18 08/10/18 08/09/18 20:00 aspirin 81 mg PO QAM 06/30/18 08/10/18 08/10/18 03:45 clopidogrel [Plavix] 75 mg PO QAM 06/30/18 08/10/18 08/03/18 08:00 divalproex [Depakote] 250 mg PO QAM 06/30/18 08/10/18 08/10/18 03:45 duloxetine [Cymbalta] 60 mg PO QAM 06/30/18 08/10/18 08/10/18 03:45 famotidine [Pepcid] 20 mg PO QPM 06/30/18 08/10/18 08/09/18 20:00 itpdfndflqj-tbyjfzilo-yuvwuagz 1 puff INHALATION QAM 06/30/18 08/10/18 08/10/18 03:45 [Trelegy Ellipta] ipratropium-albuterol 3 ml INHALATION Q4H PRN 06/30/18 08/10/18 07/28/18 irbesartan [Avapro] 75 mg PO QAM 06/30/18 08/10/18 08/09/18 08:00 isosorbide mononitrate 60 mg PO QAM 06/30/18 08/10/18 08/10/18 03:45 metoprolol succinate [Toprol XL] 25 mg PO QAM 06/30/18 08/10/18 08/10/18 03:45 nitroglycerin [Nitrostat] 0.4 mg SUBLINGUAL DIRECTED PRN 06/30/18 08/10/18 Unknown simvastatin [Zocor] 40 mg PO HS 06/30/18 08/10/18 08/09/18 20:00 pantoprazole [Protonix] 40 mg PO DAILY 08/10/18 08/10/18 08/10/18 03:45 polyethylene glycol 3350 [Miralax] 17 g PO DAILY PRN 08/10/18 08/10/18 08/08/18 08:00 Active Medications Generic Name Dose Route Start Last Admin Trade Name Freq PRN Reason Stop Dose Admin Lactated Ringer's 1,000 mls @ 15 mls/hr 08/10/18 06:00 08/10/18 06:10 Lr IV 08/11/18 05:59 15 mls/hr .Q24H MARCO Administration Beta Suzan Beta Suzan Taken Within 24 Hours: Yes Past Medical History Medical History Emphysema lung Pulmonary nodule, left Hypertension (Chronic) Brain aneurysm (Chronic) Heart disease (Chronic) CAD (coronary artery disease) Hx of myocardial infarction COPD (chronic obstructive pulmonary disease) (Inactive) Anemia Chronic headaches Dementia Hyperlipidemia On home oxygen therapy 2L/MIN NC HS ONLY Osteoarthritis SOB (shortness of breath) Past Surgical History Surgical History S/P shoulder surgery RIGHT-PLATE AND SCREWS Hx of cholecystectomy (Chronic) Hx of CABG (Chronic) TRIPLE-AGE 61 H/O heart artery stent (Chronic) History of cardiac cath 1 STENT PLACED 10 YRS AGO Past Anesthesia History No Hx of Anesthesia Complications History of PONV No Motion Sickness Screening History of Motion Sickness: No Social History Smoking Status: Current every day smoker (STARTED AT AGE 25, UP TO 2PPD AT ONE TIME) tobacco type: cigarettes Smoking cigarettes per day: 10 CIGS A DAY SINCE AGE 25 Do You Dip or Chew Tobacco: No Hx Alcohol Use: No Hx Substance Use: No Exercise / Class Metabolic Activity III < 4 Walking/Shop/Light housework Physical Exam Vital Signs Last Vital Signs Temp 36.6 C 08/10/18 05:46 Pulse 72 08/10/18 05:46 Resp 20 08/10/18 05:46 BP 144/73 H 08/10/18 05:46 Pulse Ox 92 08/10/18 05:46 ENMT Mouth: + edentulous; no TMJ abnormality Thyromental Distance: > or= 3.5 Finger Breadths Mallampati Class: II Neck normal visual inspection Respiratory Auscultation: lungs clear to auscultation bilaterally Cardiovascular Rate/Rhythm: regular rate and regular rhythm Neurologic moves all extremities Psychiatric Orientation: alert and oriented x 3 Testing Electrocardiogram Date: 07/10/18 Findings: + NSR @ (79 bpm) incomplete RBBB LVH cannot rule out septal infarct lateral infarct T wave abnormality, consider anterior ischemia Chest X-Ray Date: 07/10/18 1. Cardiomegaly and emphysema with no acute cardiopulmonary abnormality identified. 2. A 1.9 cm left lower lobe nodular lesion remains highly concerning for neoplasm when correlated with the recent PET examination.
[2018-08-10] MEDS ORDERED: CLINDAMYCIN PHOS 300 MG/2 ML VIAL ONE (08:08)
[2018-08-10] MEDS ORDERED: INDOCYANINE GREEN 25 MG/10 ML INJ ONE (08:13)
[2018-08-10] MEDS ORDERED: CLINDAMYCIN 900 MG in DEXTROSE 5% 100 ML IV SCH (08:15)
[2018-08-10] MEDS ORDERED: fentaNYL citrate 100 MCG/2 ML VIAL IV PRN (08:55)
[2018-08-10] MEDS ORDERED: DEXAMETHASONE SOD INJ 4 MG/ML VIAL IV PRN (08:55)
[2018-08-10] MEDS ORDERED: MoRPHine SULFATE 10 MG/ML CARP/VIAL IV PRN (08:55)
[2018-08-10] MEDS ORDERED: ONDANSETRON INJ 2 MG/ML 2 ML VIAL IV PRN ×2 (08:55→13:12)
[2018-08-10] MEDS ORDERED: HYDROmorphone INJ 1 MG/ML SYRINGE IV PRN (08:55)
[2018-08-10] MEDS ORDERED: ATROPINE SULFATE 0.1 MG/ML 10ML SYR IV PRN (08:55)
[2018-08-10] MEDS ORDERED: ePHEDrine sulfate 50 MG/ML AMP IV PRN (08:55)
[2018-08-10] MEDS ORDERED: KETOROLAC 30 MG/ML VIAL IV PRN (08:55)
--- NOTE | 2018-08-10 09:05 | Fluoroscopy Report ---
FL chest 1V frontal CLINICAL HISTORY: NAVIGATIONAL BRONCH COMPARISON STUDY: PET/CT June 22, 2018. FLUOROSCOPY TIME: 54.7. FLUOROSCOPIC IMAGES: 1 FINDINGS: Single fluoroscopic image demonstrates navigational bronchoscopy within the left lower lobe for the nodule shown on PET/CT of June 22, 2018. Incidental note is made of clips from bypass gr afting. IMPRESSION: Fluoroscopic image from navigational bronchoscopy. Electronically signed by: Rudy Reid M.D. 08/10/2018 9:03 AM
[2018-08-10] MEDS ORDERED: PHENYLEPHRINE HCL 10 MG/ML VIAL ONE (09:11)
[2018-08-10] MEDS ORDERED: ONDANSETRON INJ 2 MG/ML 2 ML VIAL ONE (09:11)
[2018-08-10] MEDS ORDERED: GLYCOPYRROLATE 0.2 MG/ML VIAL ONE (09:11)
[2018-08-10] MEDS ORDERED: DEXAMETHASONE SOD INJ 4 MG/ML VIAL ONE (09:11)
[2018-08-10] MEDS ORDERED: ROCURONIUM BROMIDE 10 MG/ML 5 ML VIAL ONE (09:11)
[2018-08-10] MEDS ORDERED: PHENYLEPHRINE 100MCG/ML 5ML SYR ONE (09:11)
[2018-08-10] MEDS ORDERED: LIDOCAINE HCL 2% 2 ML VIAL/AMP(20MG/ML) INFIL ONE (09:11)
[2018-08-10] MEDS ORDERED: PROPOFOL IV EMULSION 10 MG/ML 20 ML VIAL IV ONE (09:11)
[2018-08-10] MEDS ORDERED: NEOSTIGMINE METHYLSULFATE 5 MG/5 ML SYR ONE (09:11)
[2018-08-10] MEDS ORDERED: LARYING-O-JET KIT (LTA) ONE (10:38)
[2018-08-10] MEDS ORDERED: TISSEEL FIBRIN SEALANT 4ML TOP ONE (11:02)
--- NOTE | 2018-08-10 11:28 | Post Operative Brief Note ---
Immediate Post Op Note v1 Date of Surgery August 10, 2018 Pre & Post Diagnosis Operation Date: 08/10/18 07:30 Pre-Op Diagnosis: Left Lower Lobe Lung Nodule Post-Op Diagnosis: Left lower lobe NSCLC Procedure Operation Date: 08/10/18 07:30 Actual Procedures p Navigational Bronchoscopy with Marking using ICG; - Yang Del Rosario MD, FACS s Left Robotic Video-Assisted Thoracoscopy with Left Lower Lobe Wedge Resection and Lymph Node Biopsy(Left) - Yang Del Rosario MD, FACS Surgeon Yang Del Rosario MD, FACS [employer] Raúl MENDOSA Estimated Blood Loss 100 Findings Consistent with Post-Op Diagnosis Drains Chest Tube and Lemus Catheter
[2018-08-10] MEDS ORDERED: METOCLOPRAMIDE HCL INJ 5 MG/ML 2 ML VIAL IV ONE (11:57)
--- NOTE | 2018-08-10 12:10 | XRay Report ---
XR chest 1V portable CLINICAL HISTORY: left lung wedge biopsy COMPARISON STUDY: Chest radiograph July 10, 2018. FINDINGS: There are median sternotomy wires and clips from bypass grafting. A left sided chest tube i s in place. There is a small amount of gas within the left chest wall. A definite apical pneumothorax is not identified. There may be a small left hydropneumothorax. Left basilar opacity is noted. Right shoulder arthroplasty is incidentally noted. IMPRESSION: Left chest tube in place. Possible small left basilar hydropneumothorax with left basil ar opacity. Electronically signed by: Rudy Reid M.D. 08/10/2018 12:09 PM
--- NOTE | 2018-08-10 12:30 | Anesthesiology Progress Note ---
Date of Service August 10, 2018 Anesthesia Post Procedure Vital Signs Vital Signs: Temp Pulse Resp BP BP Pulse Ox 08/10/18 12:25 71 18 100/52 L 95 08/10/18 12:15 68 18 101/49 L 98 08/10/18 12:05 65 18 104/51 L 98 08/10/18 11:55 36.0 C L 66 18 144/64 H 98 08/10/18 05:46 36.6 C 72 20 144/73 H 92 Notes Mental Status: alert / awake / arousable and participated in evaluation Patient Amnestic to Procedure: Yes Nausea / Vomiting: adequately controlled Pain: adequately controlled Airway Patency, RR, SpO2: stable & adequate BP & HR: stable & adequate Hydration State: stable & adequate Anesthetic Complications: no major complications apparent
[2018-08-10] MEDS ORDERED: POLYETHYLENE (MIRALAX) 17 GM PACK PO PRN (13:12)
[2018-08-10] MEDS ORDERED: OXYCODONE HCL IR 5 MG TAB (IMMEDIATE RELEASE) PO PRN (13:12)
[2018-08-10] MEDS ORDERED: MoRPHine SULFATE 2 MG/ML CARP IV PRN (13:12)
[2018-08-10] MEDS ORDERED: NITROGLYCERIN SL 0.4 MG/TAB TAB SL PRN (13:12)
[2018-08-10] MEDS ORDERED: ALBUT/IPRATROP 3MG/0.5MG NEB 3 ML VIAL INH PRN (13:12)
[2018-08-10] MEDS ORDERED: ALPRAZolam 0.25 MG TABLET PO PRN (13:12)
[2018-08-10 13:54] LABS: Hematocrit (blood only) 36.6 % (37-47); Hemoglobin 11.4 g/dL (12.0-16.0); Mean Corpuscular Hgb Conc 31.1 g/dL (32-36); Mean Corpuscular Volume 94.1 fL (80-100); Mean Platelet Volume 9.5 fL (7.4-10.4); Platelet Count 228 K/uL (130-400); RDW Coefficient of Variation 17.4 % (11.5-14.5); RDW Standard Deviation 59.4 fL (36.4-46.3); Red Blood Count 3.89 M/uL (4.2-5.4); White Blood Count 6.76 K/uL (4.8-10.8)
[2018-08-10 14:02] LABS: Prothrombin Time 10.3 Seconds (9.0-12.0)
[2018-08-10] MEDS: ACETAMINOPHEN 1,000 MG/100 ML VIAL IV SCH ×2 (14:09→21:03)
[2018-08-10 14:10] LABS: Creatinine Clr Calc Pharmacy 37.7 ml/min; Est GFR (African American) 45.2
[2018-08-10] MEDS: D5W AND 1/2NSS 1,000 ML IV SCH (17:11)
--- NOTE | 2018-08-10 18:30 | Operative Report ---
DATE OF OPERATION: 08/10/2018 PREOPERATIVE DIAGNOSIS: Hypermetabolic left lower lobe mass. POSTOPERATIVE DIAGNOSIS: Nonsmall cell lung carcinoma, left lower lobe. PROCEDURE: 1. Electromagnetic navigational bronchoscopy with marking of left lower lobe mass using indocyanine green dye. 2. Robot-assisted thoracoscopic wedge resection of left lower lobe mass. 3. Mediastinal lymphadenectomy. 4. Re-resection of the staple line, left lower lobe. SURGEON: Yang Del Rosario MD PEANUT SORTER: DEONDRE Epps (Mr. Vieira was present for the entire case and was at the patient's bedside while I was at the console. He also closed the skin incisions at the conclusion. ANESTHESIA: General anesthesia and endotracheal intubation using double lumen tube. INDICATION OF PROCEDURE AND FINDINGS: Cristina Maier is an 83-year-old female who still smokes rather heavily. She presented and was found to have an essentially asymptomatic left lower lobe mass, which was hypermetabolic and certainly suspicious in appearance. I met with the family in the office and the patient and we had a very long talk. I explained that there are different options. One option would be to observe this mass in this 83-year-old woman. Another would be to attempt a percutaneous biopsy; however, interventional radiology felt that its relatively small size and the fact that it was near the diaphragm it would move quite a bit and fact it was behind a rib, was not a conducive to a needle biopsy. We discussed endobronchial ultrasound and navigational bronchoscopy. I did not think the navigational bronchoscopy would be successful given his peripheral size and the fact that it was peripheral. The family and the patient thought about this for a while, called the office back and stated they would like to proceed with a wedge resection. On 08/10/2018, I brought the patient to the operating room and did an uncomplicated navigational bronchoscopy and marked the area with ICG, although we did not get right to the mass. We then turned the patient and did a robot-assisted thoracoscopic wedge resection and we used the fluorescence and could see the ICG-stained area nicely. Upon palpating this area, we were able to palpate a mass. I had to take down adhesions and divide the anterior fissure between the lingula of the upper lobe and the lower lobe. I was unable to wedge this mass out. There was a question of how close it was to the staple line. While waiting for the frozen section, I took down the inferior pulmonary ligament, biopsied level IX node, level VIII nodes, level X node as well as level XI node and level V node. Really did not see a level node and patient has a patent KAROLINE and has had a history of coronary artery bypass and I was not aggressive in my medial dissection. At any rate, the frozen section came back as a nonsmall cell lung carcinoma and there was concern about the proximity to the staple line. I went ahead and fired another Endo-CAROLEE staple and removed a portion of the original staple line and the frozen section of this showed no evidence of carcinoma. The patient tolerated well and really had no air leak at the conclusion of the case. She was extubated in the room. DESCRIPTION OF PROCEDURE: The patient was brought to the operating room and laid in supine position. General anesthesia induced. Endotracheal intubation was performed. After appropriate timeout had been called and antibiotics given, I placed a fiberoptic bronchoscope and saw she had some white sputum, but it really was not very much. I closely inspected each of her airways out to the tertiary bronchi and saw no abnormalities. We then registered her airways with the Super[employer]ension navigational bronchoscopy. Upon going out, we then used the navigational probe to get out to the mass. We could not get directly in it, but we were close to it and near the pleura. We used a radial ultrasound probe and really did not see much in the way of abnormalities in this area. I repositioned the catheter several times. As I was oriented towards the pleura, we used 1 mL of indocyanine green dye and injected it. I then removed the probe. We had no bleeding. We then extubated the patient and put a double lumen tube in. The patient was turned in the right lateral decubitus position. The left chest prepped, draped in usual sterile fashion. Again, appropriate timeout had been called and incision was made a bit lower in about the ninth interspace in the mid axillary line and placed our 8.5 mm camera. This was helpful and seeing that our only adhesions were to medial left upper lobe. I then went down. We switched the fluorescence of the camera and could see the immunofluorescence quite nicely. I carefully palpated this area and we could feel the mass. I then closely evaluated this and took down the inferior pulmonary ligament. It was in the medial left lower lobe. I had to develop the fissure between the 2 and then fired Endo-CAROLEE stapler anteriorly. We did not quite complete the fissure at this area, but I went ahead and was able to fire the stapler, took several firings in order for us to finally to get this mass out. It felt that we had clean resection margin. This was sent down to the lab for frozen section. As we were waiting for this, I took down the inferior pulmonary ligament and biopsied level IX node. Coming up I biopsied level VIII node. The level X and XI nodes were then dissected out and I dissected the continuation of pulmonary artery. I then went up and got a level V node. We did not see a level node. I did not dissect out the anterior aspect because of the patent KAROLINE. Frozen section came back as a non-small cell. I did not think this woman would tolerate a left lower lobectomy well. The staple line was also questionable as having a positive margin, so I fired another Endo-CAROLEE stapler and took probably another 12-15 mm in width away including the 2 staple lines. This worked very nicely. While waiting for this frozen section, I dissected out the vessel and fissure. It would have been relatively easy to do a lobectomy; however, I do not think this patient is going to do well despite the fact that her pulmonary function shows she may tolerate it. I was still concerned enough because of her symptoms of severe dyspnea that I did not think this 83-year-old who continues to smoke and has no intention of quitting would tolerate. We really got into very little in the way of bleeding. We checked for air leaks, did not have one. A chest tube was placed in the anterior port site. It should be noted that we put camera port and we put two 8 mm ports, 1 anterior and 1 posterior, a 12 mm assistance port anteriorly just above the diaphragm. We used these with the robot and this worked out quite nicely. We were able to see quite well; however, I stated that I simply did not feel we should do a lobectomy. We had discussed this in great detail beforehand. The frozen section came back as being negative on the second staple line. There was no significant air leak. Chest tube was inserted and sutured in place with heavy silk suture. We saw no air leak in the chest tube. The lung expanded nicely. We then undocked the robot and closed all the incisions without difficulty. The large incisions were closed with 0 Vicryl for the muscle layers and 4-0 Monocryl was used to close skin. She was awake without difficulty from anesthesia and transported back to the postanesthesia care unit in stable condition. It should also be noted that we used Exparel, 266 mg mixed with 250 mL normal saline and 30 mL of 0.25% Marcaine. It was used to inject each of the 4 port sites before we made our incisions and also to perform intercostal block from the second to eleventh rib. She awakened with very little pain. I attest to the content of the Intraoperative Record and any orders documented therein. Any exceptions are noted below. MONTY
[2018-08-10] MEDS: METOCLOPRAMIDE HCL INJ 5 MG/ML 2 ML VIAL IV SCH (19:10)
[2018-08-10] MEDS: SIMVASTATIN 40 MG TAB PO SCH (20:00)
[2018-08-10] MEDS: DOCUSATE SODIUM 100 MG CAP PO SCH (20:01)
[2018-08-10] MEDS: FAMOTIDINE 20 MG TAB PO SCH (20:01)
[2018-08-11] MEDS: METOCLOPRAMIDE HCL INJ 5 MG/ML 2 ML VIAL IV SCH ×2 (04:16→12:00)
[2018-08-11] MEDS: D5W AND 1/2NSS 1,000 ML IV SCH (04:18)
[2018-08-11] MEDS: ACETAMINOPHEN 1,000 MG/100 ML VIAL IV SCH (05:05)
[2018-08-11 06:49] LABS: BUN Creatinine Ratio 18.6 (10-20); Calcium 8.2 mg/dl (8.5-10.1); Creatinine Clr Calc Pharmacy 34.2 ml/min; Est GFR (African American) 40.2; Est GFR (Non-African American) 34.7; Potassium 4.9 mmol/L (3.5-5.1)
[2018-08-11 07:06] LABS: Hematocrit (blood only) 32.5 % (37-47); Hemoglobin 10.6 g/dL (12.0-16.0); Mean Corpuscular Hgb Conc 32.6 g/dL (32-36); Mean Corpuscular Volume 92.3 fL (80-100); Mean Platelet Volume 9.8 fL (7.4-10.4); Platelet Count 218 K/uL (130-400); RDW Coefficient of Variation 17.2 % (11.5-14.5); RDW Standard Deviation 57.5 fL (36.4-46.3); Red Blood Count 3.52 M/uL (4.2-5.4); White Blood Count 7.75 K/uL (4.8-10.8)
[2018-08-11 07:07] LABS: Basophils # (auto) 0.01 K/uL (0-0.2); Basophils % (auto) 0.1 %; Eosinophils # (auto) 0.01 K/uL (0-0.5); Eosinophils % (auto) 0.1 %; Immature Granulocytes # (auto) 0.03 K/uL (0.00-0.02); Immature Granulocytes % (auto) 0.4 %; Lymphocytes # (auto) 0.92 K/uL (1.2-3.4); Lymphocytes % (auto) 11.9 %; Monocytes # (auto) 1.02 K/uL (0.11-0.59); Monocytes % (auto) 13.2 %; Neutrophils # (auto) 5.76 K/uL (1.4-6.5); Neutrophils % (auto) 74.3 %
--- NOTE | 2018-08-11 07:24 | XRay Report ---
XR chest 1V portable CLINICAL HISTORY: 83 years-old Female presenting with left lung wedge biopsy. TECHNIQUE: Portable upright AP view of the chest was obtained. COMPARISON: 08/10/2018. FINDINGS: Large bore left pleural drain remains positioned at the periphery of the left upper lung. Associated subcutaneous and soft tissue emphysema in the inferior lateral left chest wall. Median sternotomy wir es and mediastinal surgical clips noted. Atherosclerosis of the aortic arch. Cardiac silhouette mildl y enlarged. Mild pulmonary vascular prominence. Bibasilar opacities greater on the left slightly incr eased from prior. Stable to slight worsening of left lung base aeration. No large pleural effusion. T race left apical pneumothorax may be present. Reverse total right shoulder arthroplasty. Old right ri b fractures. Upper abdomen normal. IMPRESSION: 1. Trace left apical pneumothorax may be present. Large bore left pleural drain unchanged in positio n. 2. Stable to slight interval worsened aeration of the lung bases with slight increased volume overlo ad and bibasilar atelectasis, greater on the left. Electronically signed by: Dwayne Davalos M.D. 08/11/2018 7:23 AM
[2018-08-11] MEDS: DULOXETINE HCL 60 MG CAP PO SCH (08:46)
[2018-08-11] MEDS: ISOSORBIDE MONO EXTENDED REL 60 MG TABCR PO SCH (08:46)
[2018-08-11] MEDS: METOPROLOL SUCC 25MG EXT REL TAB PO SCH (08:46)
[2018-08-11] MEDS: PANTOprazole 40 MG TAB PO SCH (08:47)
[2018-08-11] MEDS: IRBESARTAN 75 MG TAB PO SCH (08:47)
[2018-08-11] MEDS: DIVALPROEX DELAY RELEASE 250 MG TABEC PO SCH (08:47)
[2018-08-11] MEDS: DOCUSATE SODIUM 100 MG CAP PO SCH ×2 (08:48→21:20)
[2018-08-11] MEDS: ASPIRIN 81 MG ECTAB PO SCH (08:48)
[2018-08-11] MEDS: levoFLOXacin 750 MG TAB PO SCH (08:52)
[2018-08-11] MEDS: guaiFENesin 600 MG TABCR PO SCH ×2 (08:52→21:21)
[2018-08-11] MEDS ORDERED: ENOXAPARIN INJ 40 MG/0.4 ML SYR SQ SCH (09:00)
--- NOTE | 2018-08-11 09:13 | Progress Note ---
DATE: 08/11/2018 Ms. Maier was seen today 1 day status post a robot-assisted thoracoscopic wedge resection of a left lower lobe non-small cell lung carcinoma. Ms. Maier looks quite good. She has been ambulating in the hallway. She is voiding well. She is on room air. She does have some rhonchi. She has very good pain control. Her complaint is she is coughing. I am not very concerned about the sputum, but I think in this 83-year-old female I would rather be safer and start her on antibiotics and some Mucinex. She does not have an air leak. Her x-ray looks quite good. If she is improved by tomorrow we will pull her chest tube and let her go home.
[2018-08-11] MEDS: ACETAMINOPHEN 325 MG TAB PO SCH ×3 (12:00→23:46)
[2018-08-11] MEDS: FAMOTIDINE 20 MG TAB PO SCH (21:21)
[2018-08-11] MEDS: SIMVASTATIN 40 MG TAB PO SCH (21:22)
[2018-08-12] MEDS: ACETAMINOPHEN 325 MG TAB PO SCH ×4 (05:45→23:37)
[2018-08-12 07:00] LABS: Hematocrit (blood only) 32.9 % (37-47); Hemoglobin 10.9 g/dL (12.0-16.0); Mean Corpuscular Hgb Conc 33.1 g/dL (32-36); Mean Corpuscular Volume 91.9 fL (80-100); Mean Platelet Volume 9.3 fL (7.4-10.4); Platelet Count 225 K/uL (130-400); RDW Coefficient of Variation 17.3 % (11.5-14.5); RDW Standard Deviation 58.1 fL (36.4-46.3); Red Blood Count 3.58 M/uL (4.2-5.4); White Blood Count 7.76 K/uL (4.8-10.8)
--- NOTE | 2018-08-12 07:29 | XRay Report ---
XR chest 1V portable HISTORY: 83 years-old Female lung bx. Follow-up study in a patient with left-sided chest tube status post surgery of the left lung COMPARISON: Chest radiograph 08/11/2018 TECHNIQUE: Portable AP view of the chest FINDINGS: Cardiac silhouette is enlarged, unchanged. Prior median sternotomy. Surgical clips project about the left heart border. Left-sided chest tube is unchanged. Persistent subcutaneous emphysema about the le ft chest wall. Unchanged left pleural effusion with bibasilar opacities suggestive of atelectasis. Ch ronic background interstitial coarsening. Tiny left apical pneumothorax is unchanged, pleural separat ion of 2 mm. Right shoulder arthroplasty. IMPRESSION: 1. Postoperative changes of the left lung with stable positioning of the left-sided chest tube. 2. Tiny left apical pneumothorax is unchanged. The above report was generated using voice recognition software. It may contain grammatical, syntax o r spelling errors. Electronically signed by: Kel Canales M.D. 08/12/2018 7:28 AM
[2018-08-12] MEDS: IRBESARTAN 75 MG TAB PO SCH (07:56)
[2018-08-12] MEDS: ASPIRIN 81 MG ECTAB PO SCH (07:57)
[2018-08-12] MEDS: DIVALPROEX DELAY RELEASE 250 MG TABEC PO SCH (07:57)
[2018-08-12] MEDS: guaiFENesin 600 MG TABCR PO SCH ×2 (07:57→20:23)
[2018-08-12] MEDS: DOCUSATE SODIUM 100 MG CAP PO SCH ×2 (07:58→20:23)
[2018-08-12] MEDS: DULOXETINE HCL 60 MG CAP PO SCH (07:58)
[2018-08-12] MEDS: PANTOprazole 40 MG TAB PO SCH (07:58)
[2018-08-12] MEDS: ISOSORBIDE MONO EXTENDED REL 60 MG TABCR PO SCH (08:03)
[2018-08-12] MEDS: METOPROLOL SUCC 25MG EXT REL TAB PO SCH (08:04)
--- NOTE | 2018-08-12 08:54 | XRay Report ---
XR chest 1V portable CLINICAL HISTORY: 83 years-old Female presenting with tube removal . TECHNIQUE: Portable upright AP view of the chest was obtained. COMPARISON: 08/12/2018 at 6:44 AM FINDINGS: Median sternotomy wires and mediastinal surgical clips. Atherosclerosis of aortic arch. Cardiac silho uette normal in size. The large bore left pleural drain has been removed. Residual soft tissue emphys cherelle along the inferior lateral left chest wall. Persistent left basilar opacity and likely trace left pleural effusion. There is trace left apical pneumothorax if any present. Right lung clear. Trace ri ght pleural effusion may be present. Degenerative changes of the thoracic spine. Reverse right total shoulder arthroplasty. Linear hyperdensities in the epigastrium may relate to epicardial pacing wires . IMPRESSION: 1. Interval removal of the left pleural drain. Trace left apical pneumothorax if any remains. 2. Persistent left basilar opacity, likely atelectasis with small left pleural effusion. Electronically signed by: Dwayne Davalos M.D. 08/12/2018 8:53 AM
[2018-08-12] MEDS: ENOXAPARIN INJ 30 MG/0.3 ML SYR SQ SCH (09:08)
--- NOTE | 2018-08-12 10:50 | Surgery Progress Note ---
Date of Service August 12, 2018 Assessment & Plan (1) Pulmonary nodule, left: -pt. is s/p robotic left lung wedge resection: -pathology showed non-small cell lung cancer -chest tube removed today -post-pull CXR showed no pneumothorax -encouraged ambulation, coughing, deep breathing and use of IS -pain control measure are in place -lovenox in place for DVT prevention -pt. revisited after chest tube removed and she noted a significant improvement in her pain and discomfort -discussed with daughter at bedside: -will re-evaluate pt. this afternon and if she is doing well will consider d/ c home -prior to d/c will obtain 2-step: -pt. uses oxygen at home but only at night and would like to assess if this will now be needed with activity and/or rest while awake Subjective Pt. notes getting SOB with ambulation. She notes this am that she was having pain and discomfort on left side near chest tube insertion site as well as her back. No difficulty voiding and no N/V. Physical Exam 2 Vital Signs (Past 24 Hours): Last Vital Signs Temp 36.5 C 08/12/18 07:42 Pulse 96 H 08/12/18 07:42 Resp 21 08/12/18 07:42 BP 142/62 H 08/12/18 07:42 Pulse Ox 91 08/12/18 10:33 Physical Exam: CT tube examined and no air leak noted Constitutional: well developed and well nourished; no acute distress Respiratory: no respiratory distress and no labored breathing BS are decreased at left base Cardiovascular: Rate/Rhythm: regular rate and regular rhythm Gastrointestinal (Abdomen): soft and non-tender Musculoskeletal: no calf tenderness Results & Data Diagnostic Findings CXR today shows chest tube in place with trace apical pneumothorax
[2018-08-12 11:31] LABS: Calcium 9.1 mg/dl (8.5-10.1); Creatinine Clr Calc Pharmacy 38.6 ml/min; Est GFR (African American) 46.5; Est GFR (Non-African American) 40.1; Potassium 4.4 mmol/L (3.5-5.1)
[2018-08-12] MEDS: FAMOTIDINE 20 MG TAB PO SCH (20:23)
[2018-08-12] MEDS: SIMVASTATIN 40 MG TAB PO SCH (20:23)
[2018-08-13] MEDS: ACETAMINOPHEN 325 MG TAB PO SCH (06:29)
--- NOTE | 2018-08-13 07:37 | XRay Report ---
SINGLE VIEW CHEST CLINICAL HISTORY: Status post left-sided pulmonary resection. FINDINGS: An AP, portable, upright chest radiograph is compared to study dated 08/12/2018 and correlate d with chest CT dated 06/07/2018. The examination is degraded by portable technique, apical lordotic p ositioning, and patient rotation. The patient is status post midline sternotomy. The heart is enlarg ed and there is atherosclerotic calcification of the thoracic aorta. The pulmonary vasculature is non congested. Emphysema and chronic interstitial thickening are similar to previous. There is volume los s consistent with left-sided pulmonary resection. There is developing airspace consolidation at the r ight lung base, new from yesterday. Left basilar opacities and pleural fluid at the left lung base ar e similar to previous. No pneumothorax is identified. The skeletal structures are osteopenic. There a re healed right-sided rib fractures. A right shoulder arthroplasty is in place. Arthritic changes not ed in the left shoulder. Subcutaneous emphysema is noted along the left chest wall. IMPRESSION: 1. Cardiomegaly and emphysema with evidence of previous left-sided pulmonary resection. 2. There is airspace consolidation at the right lung base, new from yesterday. Correlate clinically f or evidence of pneumonia/aspiration pneumonitis. Radiographic follow-up to resolution is recommended. 3. Left basilar opacities and pleural fluid at the left lung base are similar to previous. 4. No residual pneumothorax is clearly identified. Electronically signed by: Lonnie Soares M.D. 08/13/2018 7:36 AM
[2018-08-13] MEDS: ENOXAPARIN INJ 30 MG/0.3 ML SYR SQ SCH (09:02)
[2018-08-13] MEDS: ASPIRIN 81 MG ECTAB PO SCH (09:03)
[2018-08-13] MEDS: PANTOprazole 40 MG TAB PO SCH (09:03)
[2018-08-13] MEDS: guaiFENesin 600 MG TABCR PO SCH (09:03)
[2018-08-13] MEDS: DOCUSATE SODIUM 100 MG CAP PO SCH (09:03)
[2018-08-13] MEDS: IRBESARTAN 75 MG TAB PO SCH (09:03)
[2018-08-13] MEDS: ISOSORBIDE MONO EXTENDED REL 60 MG TABCR PO SCH (09:03)
[2018-08-13] MEDS: DULOXETINE HCL 60 MG CAP PO SCH (09:03)
[2018-08-13] MEDS: levoFLOXacin 750 MG TAB PO SCH (09:03)
[2018-08-13] MEDS: DIVALPROEX DELAY RELEASE 250 MG TABEC PO SCH (09:04)
[2018-08-13] MEDS: METOPROLOL SUCC 25MG EXT REL TAB PO SCH (09:04)
--- NOTE | 2018-08-13 09:42 | Discharge Summary ---
ADMISSION DIAGNOSIS: Left lung nodule. DISCHARGE DIAGNOSIS: Squamous cell cancer of left lung. HOSPITAL COURSE: This is an 83-year-old female that Dr. Del Rosario saw and evaluated as an outpatient for a left lung nodule. It was felt the best course of action was for patient to undergo a wedge resection of this nodule. He did not feel that the patient would tolerate a formal lobectomy, so on date of admission, the patient was taken to the operating room where she underwent a navigational bronchoscopy with marking of her left lung nodule using ICG and then she underwent a left robotic-assisted video-assisted thoracoscopic wedge resection of the left lower lobe along with a mediastinal lymphadenectomy. The patient's surgery was uneventful. During her postoperative course, the patient was noted to have cough postoperatively and she was therefore started on a course of Levaquin, which she tolerated well. Her chest tube was managed in the appropriate fashion and was discontinued on postop day #2 and a portable chest x-ray did not demonstrate any significant pneumothorax. The patient was noted to be hypoxic with activity during her postoperative course. It should be noted that she used home oxygen at night time only and therefore 2-step exercise was performed by respiratory therapy and was determined that patient would require 2 liters of oxygen with activity, but not at rest and complex case manager made arrangements for her to have this at home. The patient's pathology at time of discharge did reveal that she had invasive squamous cell carcinoma of the left lower lobe nodule that was taken out and the true margin was negative for malignancy. The patient did have mediastinal lymphadenectomy ended up 5 lymph node stations examined, there is no cancer involving the knees. FOLLOWUP: Dr. Del Rosario is also to call the patient for 1 week followup appointment at which time she will have a repeat chest x-ray. DISCHARGE INSTRUCTIONS: The patient and her daughters were given, written and verbal instructions. She was instructed to walk daily, not to drive until seen by Dr. Del Rosario and cleared to do so and she was told that her dressings could be removed on 08/15/2018 and she could shower thereafter, but not to take any tub baths. The patient was instructed to call our office with any additional questions or concerns.
== END 2018-08-13 12:04 | disposition home health service (06) | DRG 165 ==
LOC: ASU 05:09 → 3W 11:42

== ENCOUNTER 2018-09-04 09:45 | Inpatient (IN) ==
[2018-09-04] MEDS ORDERED: SODIUM CHLORIDE 0.9% 1000ML 1,000 ML IV ONE ×2 (09:54→12:32)
[2018-09-04] MEDS ORDERED: MoRPHine SULFATE 4 MG/ML 1 ML CARP\\VIAL IV STA (09:59)
[2018-09-04] MEDS ORDERED: ONDANSETRON INJ 2 MG/ML 2 ML VIAL IV STA (09:59)
[2018-09-04 10:56] LABS: Basophils # (auto) 0.03 K/uL (0-0.2); Basophils % (auto) 0.3 %; Eosinophils # (auto) 0.78 K/uL (0-0.5); Eosinophils % (auto) 8.7 %; Hematocrit (blood only) 33.6 % (37-47); Hemoglobin 10.7 g/dL (12.0-16.0); Immature Granulocytes # (auto) 0.03 K/uL (0.00-0.02); Immature Granulocytes % (auto) 0.3 %; Lymphocytes # (auto) 1.61 K/uL (1.2-3.4); Mean Corpuscular Hgb Conc 31.8 g/dL (32-36); Mean Corpuscular Volume 93.9 fL (80-100); Mean Platelet Volume 9.7 fL (7.4-10.4); Monocytes # (auto) 0.95 K/uL (0.11-0.59); Monocytes % (auto) 10.6 %; Neutrophils # (auto) 5.56 K/uL (1.4-6.5); Neutrophils % (auto) 62.1 %; Platelet Count 377 K/uL (130-400); RDW Coefficient of Variation 16.2 % (11.5-14.5); RDW Standard Deviation 55.6 fL (36.4-46.3); Red Blood Count 3.58 M/uL (4.2-5.4); White Blood Count 8.96 K/uL (4.8-10.8)
[2018-09-04 11:23] LABS: Albumin Level 3.1 gm/dl (3.4-5.0); BUN Creatinine Ratio 19.9 (10-20); Calcium 8.7 mg/dl (8.5-10.1); Est GFR (African American) 38.5; Est GFR (Non-African American) 33.2
[2018-09-04 11:27] LABS: Albumin Globulin Ratio 0.8 (0.9-2); Bilirubin,Total 0.4 mg/dl (0.2-1); Total Protein 7.1 gm/dl (6.4-8.2)
[2018-09-04 12:14] LABS: Potassium 4.9 mmol/L (3.5-5.1)
[2018-09-04] MEDS ORDERED: IOVERSOL 100ml IV PRN (12:48)
--- NOTE | 2018-09-04 13:07 | CT Scan Report ---
ABDOMEN AND PELVIS CT WITH IV CONTRAST CT DOSE: 887.88 mGy.cm HISTORY: Acute left lower quadrant abdominal pain llq abd pain TECHNIQUE: Multiaxial CT images of the abdomen and pelvis were performed following the use of intrave nous contrast. A dose lowering technique was utilized adhering to the principles of ALARA. COMPARISON STUDY: Chest radiographs 08/22/2018, PET CT 06/22/2018. FINDINGS: Interval postoperative changes about the left hilum and left lung base with consolidation about the l eft lung base near the surgical suture material measuring up to 5.8 x 3.4 cm. Mild adjacent pleural t hickening with trace pleural fluid. Mild subsegmental atelectasis/scarring of the right lung base. Th ere is no pneumatosis or pneumoperitoneum identified. Prior median sternotomy. Trace subdiaphragmatic fluid measures up to 3.0 cm. Coronary arterial calcifications noted. There are multiple circumscribed hypodense lesions about the liver measuring up to 3.0 cm suggestive of probable hepatic cysts, unchanged from comparison study. No new hepatic mass lesions identified. N o intrahepatic biliary ductal dilation. Prior cholecystectomy. The common bile duct is dilated to 10 mm transversely. There are several hypodense foci noted about the distal common bile duct measuring u p to 5 mm compatible with choledocholithiasis. Pancreatic duct appears normal. Spleen and adrenal gla nds are unremarkable. Moderate generalized pancreatic atrophy with scattered punctate calcifications suggesting sequela of chronic pancreatitis. 2.2 cm soft tissue prominence about the superior pole left kidney. Bilateral cortical thinning with m ildly. Multiple renal cysts with bilateral renal calcifications. Lobular cyst of the inferior pole le ft kidney measures up to 3.9 cm. No ureteral calculi or obstructive uropathy. Urinary bladder is pred ominantly decompressed. Uterus and adnexa demonstrate no acute abnormality. Extensive mixed plaque fo rmation of the aorta and major branches. Aortobiiliac stent graft is patent. Ectasia of the infrarena l abdominal aorta, 2.9 x 2.8 cm. No adenopathy. No small bowel obstruction. Multiple nondilated fluid-filled loops of small bowel likely physiologic. The majority of the colon is decompressed with wall thickening. Fluid noted within the cecum. Mural fibrofatty changes of the cecum are noted. The appendix is not definitively seen. No secondary signs to suggest acute appendicitis. No ascites or mesenteric inflammation. Soft tissues appear unremarkabl e. No suspicious lytic or blastic bony lesions. Multilevel degenerative changes of the spine, pelvis and hips. IMPRESSION: 1. No bowel obstruction. 2. Mild wall thickening throughout the colon is likely secondary to nondistention without associated pericolonic inflammation. A mild nonspecific pancolitis is also the differential. Correlate clinical ly. 3. Postoperative changes of the left lung base with a 5.8 x 3.4 cm irregular consolidative opacity no sonya surrounding the suture material. Additionally, there is a trace left pleural effusion with left b asilar pleural thickening. Attention at follow-up recommended. 4. Cholelithiasis with mild common bile duct distention and choledocholithiasis. No significant intra hepatic biliary ductal dilation. 5. Nonspecific trace left subdiaphragmatic free fluid. 6. 2.2 cm soft tissue prominence about the superior pole left kidney suggests asymmetric renal parenc hyma with underlying renal lesion considered less likely. Attention at follow-up recommended. 7. Additional findings as above. Electronically signed by: Kel Canales M.D. 09/04/2018 1:05 PM
[2018-09-04 13:12] LABS: Appearance Urine Clear (Clear); Bilirubin Urine Negative (Negative); Blood Urine Negative (Negative); Color Urine Yellow; Glucose Urine UA Negative (Negative); Ketones Urine Negative (Negative); Leukocyte Esterase Urine Negative (Negative); Nitrite Urine Negative (Negative); Protein Urine Negative (Negative); Urobilinogen Urine Negative (Negative)
[2018-09-04] MEDS ORDERED: CEFEPIME 1,000 MG in SYRINGE 0 ML IV STA (13:20)
[2018-09-04] MEDS ORDERED: metroNIDAZOLE 500 MG/100 ML BAG IV STA (13:20)
--- NOTE | 2018-09-04 14:57 | History & Physical Report ---
Date of Service September 04, 2018 Assessment & Plan (1) Choledocholithiasis: Choledocholithiasis seen on CT. Patient will remain n.p.o. Will consult Dr. Garber for further input. (2) Anemia: H&H currently stable. Recheck at 1700. Hold Plavix and ASA. Will check a stool hemoccult. Continue ferrous sulfate. (3) Gastritis: Suspected persistent gastritis. Now with diarrhea. Will order c-diff screening. The pt will be made NPO. Supportive management with bowel rest and IVF. Continue pantoprazole and pepcid. Await recommendations from Dr. Garber. (4) Acid reflux: Continue pantoprazole and pepcid. (5) COPD (chronic obstructive pulmonary disease): Mixed restrictive and obstructive lung disease stable. Continue Trelegy Ellipta and ipratropium-albuterol. (6) CAD (coronary artery disease): Continue Avapro, isosorbide, metoprolol, nitrolygcerin PRN, and simvastatin. Plavix held. (7) DVT prophylaxis: SCDs (8) Non-small cell carcinoma of lung: S/p LLL wedge resection by Dr. Del Rosario on 08-10-18. Trace pleural effusion on CT. Incision healing well. Respiratory status is stable. History of Present Illness Chief Complaint: abdominal pain and diarrhea Primary Care Provider: Irma Reid MD 83 yo female with a history of hypertension, dyslipidemia, PAD status post femoral stents in 2006, cerebrovascular disease (inoperable MCA aneurysm 2015), COPD PVD/emphysema, CAD status post CABG x3 1997 and intracoronary stent jasmine cement 2006, and non-small cell lung cancer presents today with c/o abdominal pain and diarrhea x 2 days. She denies f/c or n/v. She c/o tarry stools, but is currently on iron supplementation. She is s/p LLL wedge resection on 08-10-28 for non-small cell lung cancer. The pt's daughter reports that she was transfused with 2 units of PRBCs and started on iron prior to surgery for anemia. She is s/p EGD with Dr. Garber on 08-01-18 which showed gastritis and hematin in the gastric antum. H&H today is stable at 10.[address] scan shows the common bile duct is dilated to 10 mm to Yasmine lithiasis. There is also mild wall thickening throughout the colon. She is also noted to have a trace left pleural effusion. Creatinine is slightly elevated today 1.45; baseline 1.1 in July. Allergies Allergy/AdvReac Type Severity Reaction Status Date / Time donepezil Allergy Intermediate Diarrhea Verified 09/04/18 11:07 Penicillins Allergy Unknown SWELLING Verified 09/04/18 11:07 Sulfa (Sulfonamide Allergy Unknown SWELLING Verified 09/04/18 11:07 Antibiotics) Home Medications Home Medications Medication Instructions Recorded Confirmed Type Trelegy Ellipta 1 puff INHALATION QAM 06/30/18 09/04/18 History acetaminophen 1,000 mg PO QAM 06/30/18 09/04/18 History acetaminophen 1,500 mg PO QPM 06/30/18 09/04/18 History alprazolam [Xanax] 0.25 mg PO HS PRN 06/30/18 09/04/18 History divalproex [Depakote] 250 mg PO QAM 06/30/18 09/04/18 History duloxetine [Cymbalta] 60 mg PO QAM 06/30/18 09/04/18 History famotidine [Pepcid] 20 mg PO QPM 06/30/18 09/04/18 History ipratropium-albuterol 3 ml INHALATION Q4H PRN 06/30/18 09/04/18 History irbesartan [Avapro] 75 mg PO QAM 06/30/18 09/04/18 History isosorbide mononitrate 60 mg PO QAM 06/30/18 09/04/18 History metoprolol succinate [Toprol XL] 25 mg PO QAM 06/30/18 09/04/18 History nitroglycerin [Nitrostat] 0.4 mg SUBLINGUAL DIRECTED PRN 06/30/18 09/04/18 History simvastatin [Zocor] 40 mg PO HS 06/30/18 09/04/18 History pantoprazole [Protonix] 40 mg PO DAILY 08/10/18 09/04/18 History polyethylene glycol 3350 [Miralax] 17 g PO DAILY PRN 08/10/18 09/04/18 History ferrous sulfate 325 mg PO BIDM 30 Days #60 tab 09/06/18 Rx sucralfate 1 g PO QID 30 Days #120 tab 09/06/18 Rx Past Med/Surg History Medical History Emphysema lung Pulmonary nodule, left Hypertension (Chronic) Brain aneurysm (Chronic) Heart disease (Chronic) CAD (coronary artery disease) Hx of myocardial infarction COPD (chronic obstructive pulmonary disease) (Inactive) Anemia Chronic headaches Dementia Hyperlipidemia On home oxygen therapy 2L/MIN NC HS ONLY Osteoarthritis SOB (shortness of breath) Surgical History S/P shoulder surgery RIGHT-PLATE AND SCREWS Hx of cholecystectomy (Chronic) Hx of CABG (Chronic) TRIPLE-AGE 61 H/O heart artery stent (Chronic) History of cardiac cath 1 STENT PLACED 10 YRS AGO Status post lung surgery Social History Preferred Language: French Beliefs That Will Affect Care: None marital status: Single Current Living Situation: Family current occupational status: retired Feels Safe at Home: Yes Smoking Status: Current every day smoker Hx Alcohol Use: No Hx Substance Use: No Review of Systems Constitutional: no fever and no chills Eyes: no worsening vision Ear, Nose, Mouth, Throat: no ear pain Respiratory: no cough and no dyspnea Cardiovascular: no chest pain Gastrointestinal: + abdominal pain and + diarrhea/loose stools; no nausea and no vomiting Genitourinary (Female): no dysuria and no hematuria Physical Exam Vital Signs (Past 24 Hours): Last Vital Signs Temp 36.5 C 09/04/18 09:51 Pulse 78 09/04/18 14:18 Resp 20 09/04/18 14:18 BP 128/64 09/04/18 14:18 Pulse Ox 94 09/04/18 14:18 The patient is afebrile. Vital signs stable. Constitutional: + overweight; no acute distress Eyes: PERRL ENMT: Ears: no TM abnormality Neck: trachea midline, no thyromegaly Respiratory: no respiratory distress and no labored breathing Auscultation: + wheezes Cardiovascular: RRR, no murmur, no edema Gastrointestinal (Abdomen): Inspection/Auscultation: normal bowel sounds Percussion/Palpation: abdomen soft; abdomen nontender and no hepatosplenomegaly Psychiatric: A+Ox3, euthymic affect Lymphatic: no cervical or axillary lymphadenopathy Code Status & VTE Plan Code Status DNR per patient and her daughter who is her medical POA. VTE Prophylaxis Plan VTE Prophylaxis will be ordered: Yes Supervising Physician Co-Signing Physician Notes Patient was seen and examined at bedside by myself. I examined and interrogated the patient. My physical exam and history did not defer from above. I answered all of the patient's questions. Patient will remain NPO for possible intervention as concern over anemia. will repeat hemoglobin. (1) CAD (coronary artery disease) Associated angina: angina presence unspecified Coronary Disease-Associated Artery/Lesion type: unspecified vessel or lesion type [place] vs. transplanted heart: [place] heart Qualified Code(s): I25.10 - Atherosclerotic heart disease of [place] coronary artery without angina pectoris (2) Anemia Anemia type: unspecified type Qualified Code(s): D64.9 - Anemia, unspecified (3) Gastritis Chronicity: acute Gastritis bleeding: presence of bleeding unspecified Gastritis type: unspecified gastritis Qualified Code(s): K29.00 - Acute gastritis without bleeding (4) COPD (chronic obstructive pulmonary disease) COPD type: emphysema Emphysema type: unspecified Qualified Code(s): J43.9 - Emphysema, unspecified (5) Acid reflux Esophagitis presence: without esophagitis Qualified Code(s): K21.9 - Gastro-esophageal reflux disease without esophagitis
--- NOTE | 2018-09-04 15:51 | Emergency Department Note ---
Entered by Kamari Ellis acting as a scribe for Jose Kern DO History of Present Illness General Chief complaint: Diarrhea Stated complaint: weakness Source: patient Limitations: no limitations History of Present Illness Provider complaint: Diarrhea Onset (ago): day(s) Location: buttocks Pain Consistency: + constant Maximum Pain Intensity: 2 Current Pain Intensity: 6 Quality: + other (diarrhea) Associated symptoms: + other (ABD Pain ); no cough and no nausea/vomiting Treatments prior to arrival: none The patient is an 83 year old female who presents to the Emergency Room with complaints of nearly constant diarrhea that began last night. The patient states that she developed diarrhea yesterday evening, and now "cannot move" without having some diarrhea. She complains of abdominal pain as well, which is constant. She rates the severity of her pain as a 6/10 to the left lower quadrant. The patient denies any cough, upper respiratory system, vomiting, or dysuria. The patient has not taken any long trips or had any unusual foods recently. Patient does note that she had severe abdominal pain 2 days ago but that has resolved. No other exacerbating or remitting factors. Home Medications Home Medications Medication Instructions Recorded Confirmed Type Trelegy Ellipta 1 puff INHALATION QAM 06/30/18 09/04/18 History acetaminophen 1,000 mg PO QAM 06/30/18 09/04/18 History acetaminophen 1,500 mg PO QPM 06/30/18 09/04/18 History alprazolam [Xanax] 0.25 mg PO HS PRN 06/30/18 09/04/18 History aspirin 81 mg PO QAM 06/30/18 09/04/18 History clopidogrel [Plavix] 75 mg PO QAM 06/30/18 09/04/18 History divalproex [Depakote] 250 mg PO QAM 06/30/18 09/04/18 History duloxetine [Cymbalta] 60 mg PO QAM 06/30/18 09/04/18 History famotidine [Pepcid] 20 mg PO QPM 06/30/18 09/04/18 History ipratropium-albuterol 3 ml INHALATION Q4H PRN 06/30/18 09/04/18 History irbesartan [Avapro] 75 mg PO QAM 06/30/18 09/04/18 History isosorbide mononitrate 60 mg PO QAM 06/30/18 09/04/18 History metoprolol succinate [Toprol XL] 25 mg PO QAM 06/30/18 09/04/18 History nitroglycerin [Nitrostat] 0.4 mg SUBLINGUAL DIRECTED PRN 06/30/18 09/04/18 History simvastatin [Zocor] 40 mg PO HS 06/30/18 09/04/18 History pantoprazole [Protonix] 40 mg PO DAILY 08/10/18 09/04/18 History polyethylene glycol 3350 [Miralax] 17 g PO DAILY PRN 08/10/18 09/04/18 History levofloxacin 750 mg PO Q48H #5 tab 08/13/18 09/04/18 Rx Allergies Allergy/AdvReac Type Severity Reaction Status Date / Time donepezil Allergy Intermediate Diarrhea Verified 09/04/18 11:07 Penicillins Allergy Unknown SWELLING Verified 09/04/18 11:07 Sulfa (Sulfonamide Allergy Unknown SWELLING Verified 09/04/18 11:07 Antibiotics) Past Med/Surg History Medical History Emphysema lung Pulmonary nodule, left Hypertension (Chronic) Brain aneurysm (Chronic) Heart disease (Chronic) CAD (coronary artery disease) Hx of myocardial infarction COPD (chronic obstructive pulmonary disease) (Inactive) Anemia Chronic headaches Dementia Hyperlipidemia On home oxygen therapy 2L/MIN NC HS ONLY Osteoarthritis SOB (shortness of breath) Surgical History S/P shoulder surgery RIGHT-PLATE AND SCREWS Hx of cholecystectomy (Chronic) Hx of CABG (Chronic) TRIPLE-AGE 61 H/O heart artery stent (Chronic) Status post lung surgery History of cardiac cath 1 STENT PLACED 10 YRS AGO Social History Preferred Language: [place] Beliefs That Will Affect Care: None marital status: Single Current Living Situation: Family current occupational status: retired Feels Safe at Home: Yes Smoking Status: Former smoker Hx Alcohol Use: No Hx Substance Use: No Review of Systems See HPI for pertinent positives & negatives. and A total of 10 systems reviewed and were otherwise negative Physical Exam Vital Signs Vital Signs - 24 hr 09/04/18 09:50 09/04/18 09:51 09/04/18 09:55 Temperature 36.5 C Temperature Source Oral Sepsis Recent Fever Within 48 Hours No Sepsis New/Unexplained Change in Mental Status No Sepsis Action Taken by Nursing No Action Required Pulse Rate 80 80 79 Pulse Rate [Apical] Pulse Rate from SpO2 Sensor 80 79 Pulse Rhythm Regular Pulse Rhythm [Apical] Pulse Strength Normal Pulse Strength [Apical] Respiratory Rate 17 17 14 Respiratory Effort / Characteristics Non-Labored Spontaneous Respiratory Depth Normal Respiratory Pattern Regular Blood Pressure 126/68 126/68 Blood Pressure [Right Arm] Blood Pressure Mean 87 87 Blood Pressure Mean [Right Arm] Blood Pressure Position [Right Arm] Pulse Oximetry 95 95 97 Oxygen Delivery Method Room Air 09/04/18 10:00 09/04/18 10:01 09/04/18 10:30 Temperature Temperature Source Sepsis Recent Fever Within 48 Hours Sepsis New/Unexplained Change in Mental Status Sepsis Action Taken by Nursing Pulse Rate 81 80 80 Pulse Rate [Apical] Pulse Rate from SpO2 Sensor 80 81 80 Pulse Rhythm Pulse Rhythm [Apical] Pulse Strength Pulse Strength [Apical] Respiratory Rate 22 23 21 Respiratory Effort / Characteristics Respiratory Depth Respiratory Pattern Blood Pressure 112/70 Blood Pressure [Right Arm] Blood Pressure Mean 84 Blood Pressure Mean [Right Arm] Blood Pressure Position [Right Arm] Pulse Oximetry 96 95 96 Oxygen Delivery Method 09/04/18 10:37 09/04/18 10:49 09/04/18 11:00 Temperature Temperature Source Sepsis Recent Fever Within 48 Hours Sepsis New/Unexplained Change in Mental Status Sepsis Action Taken by Nursing Pulse Rate 80 74 Pulse Rate [Apical] 78 Pulse Rate from SpO2 Sensor 81 76 Pulse Rhythm Pulse Rhythm [Apical] Regular Pulse Strength Pulse Strength [Apical] Normal Respiratory Rate 20 16 17 Respiratory Effort / Characteristics Non-Labored Respiratory Depth Normal Respiratory Pattern Blood Pressure 111/54 L Blood Pressure [Right Arm] 111/78 Blood Pressure Mean 73 Blood Pressure Mean [Right Arm] 89 Blood Pressure Position [Right Arm] Pulse Oximetry 95 93 Oxygen Delivery Method Room Air 09/04/18 11:17 09/04/18 11:30 09/04/18 12:00 Temperature Temperature Source Sepsis Recent Fever Within 48 Hours Sepsis New/Unexplained Change in Mental Status Sepsis Action Taken by Nursing Pulse Rate 76 72 71 Pulse Rate [Apical] Pulse Rate from SpO2 Sensor 77 75 71 Pulse Rhythm Pulse Rhythm [Apical] Pulse Strength Pulse Strength [Apical] Respiratory Rate 14 18 16 Respiratory Effort / Characteristics Respiratory Depth Respiratory Pattern Blood Pressure 99/53 L Blood Pressure [Right Arm] Blood Pressure Mean 68 Blood Pressure Mean [Right Arm] Blood Pressure Position [Right Arm] Pulse Oximetry 96 97 96 Oxygen Delivery Method 09/04/18 12:01 09/04/18 12:30 09/04/18 12:46 Temperature Temperature Source Sepsis Recent Fever Within 48 Hours Sepsis New/Unexplained Change in Mental Status Sepsis Action Taken by Nursing Pulse Rate 74 73 Pulse Rate [Apical] 81 Pulse Rate from SpO2 Sensor 73 73 Pulse Rhythm Pulse Rhythm [Apical] Regular Pulse Strength Pulse Strength [Apical] Normal Respiratory Rate 13 20 18 Respiratory Effort / Characteristics Non-Labored Spontaneous Respiratory Depth Normal Respiratory Pattern Regular Blood Pressure 127/56 L Blood Pressure [Right Arm] 113/60 Blood Pressure Mean 79 Blood Pressure Mean [Right Arm] 77 Blood Pressure Position [Right Arm] Lying Pulse Oximetry 96 94 96 Oxygen Delivery Method Room Air 09/04/18 12:51 09/04/18 13:00 09/04/18 13:02 Temperature Temperature Source Sepsis Recent Fever Within 48 Hours Sepsis New/Unexplained Change in Mental Status Sepsis Action Taken by Nursing Pulse Rate 77 77 77 Pulse Rate [Apical] Pulse Rate from SpO2 Sensor 77 77 77 Pulse Rhythm Pulse Rhythm [Apical] Pulse Strength Pulse Strength [Apical] Respiratory Rate 16 18 21 Respiratory Effort / Characteristics Respiratory Depth Respiratory Pattern Blood Pressure 104/68 74/61 L 113/60 Blood Pressure [Right Arm] Blood Pressure Mean 80 65 77 Blood Pressure Mean [Right Arm] Blood Pressure Position [Right Arm] Pulse Oximetry 96 96 99 Oxygen Delivery Method 09/04/18 13:30 09/04/18 14:00 09/04/18 14:01 Temperature Temperature Source Sepsis Recent Fever Within 48 Hours Sepsis New/Unexplained Change in Mental Status Sepsis Action Taken by Nursing Pulse Rate 76 79 77 Pulse Rate [Apical] Pulse Rate from SpO2 Sensor 77 78 77 Pulse Rhythm Pulse Rhythm [Apical] Pulse Strength Pulse Strength [Apical] Respiratory Rate 18 29 H 25 H Respiratory Effort / Characteristics Respiratory Depth Respiratory Pattern Blood Pressure 121/100 Blood Pressure [Right Arm] Blood Pressure Mean 107 Blood Pressure Mean [Right Arm] Blood Pressure Position [Right Arm] Pulse Oximetry 97 96 95 Oxygen Delivery Method 09/04/18 14:18 Temperature Temperature Source Sepsis Recent Fever Within 48 Hours Sepsis New/Unexplained Change in Mental Status Sepsis Action Taken by Nursing Pulse Rate 78 Pulse Rate [Apical] Pulse Rate from SpO2 Sensor 78 Pulse Rhythm Pulse Rhythm [Apical] Pulse Strength Pulse Strength [Apical] Respiratory Rate 20 Respiratory Effort / Characteristics Respiratory Depth Respiratory Pattern Blood Pressure 128/64 Blood Pressure [Right Arm] Blood Pressure Mean 85 Blood Pressure Mean [Right Arm] Blood Pressure Position [Right Arm] Pulse Oximetry 94 Oxygen Delivery Method GENERAL: Sitting up in bed, alert, well appearing, well nourished, no distress, non-toxic EYE EXAM: normal conjunctiva. OROPHARYNX: no exudate, no erythema, lips, buccal mucosa, and tongue normal and mucous membranes are DRY. NECK: supple, no nuchal rigidity, no adenopathy, non-tender LUNGS: Clear to auscultation. Normal chest wall mechanics HEART: no murmurs, S1 normal and S2 normal ABDOMEN: abdomen soft, non-tender, normo-active bowel, sounds, no masses, no rebound or guarding. BACK: Back is symmetrical on inspection and there is no deformity, no midline tenderness, no CVA tenderness. SKIN: no rashes and no bruising UPPER EXTREMITIES: upper extremities are grossly normal. LOWER EXTREMITIES: No pitting edema. NEURO EXAM: Normal sensorium, cranial nerves II-XII grossly intact, normal speech, no gross weakness of arms, no gross weakness of legs. Course 0956: Past medical records reviewed. The patient was evaluated in room B9, and a complete history and physical examination were performed. 1332: I reviewed the patient's case with Kristel Curiel [facility] Hospitalist. She will evaluate the patient for further management. Administered Medications Ioversol (Optiray 320 100ml) 93 ml IV ONCE PRN PRN Reason: Interaction Checking Stop: 09/08/18 12:47 Last Admin: 09/04/18 12:48 Dose: 93 ml Documented by: [id number] Discontinued Medications Sodium Chloride (Nss 1000ml) 1,000 mls @ 999 mls/hr IV .Q1H1M ONE Stop: 09/04/18 10:54 Last Infusion: 09/04/18 12:40 Dose: 0 mls/hr Documented by: [id number] Admin: 09/04/18 11:39 Dose: 999 mls/hr Documented by: [id number] Sodium Chloride (Nss 1000ml) 1,000 mls @ 999 mls/hr IV .Q1H1M ONE Stop: 09/04/18 13:32 Last Infusion: 09/04/18 14:32 Dose: 999 mls/hr Documented by: [id number] Admin: 09/04/18 13:07 Dose: 999 mls/hr Documented by: [id number] Metronidazole (Flagyl) 500 mg in 100 mls @ 100 mls/hr IV NOW STA Stop: 09/04/18 14:19 Last Admin: 09/04/18 14:19 Dose: 100 mls/hr Documented by: [id number] Cefepime HCl 1,000 mg/ Syringe 11.3 mls @ 5.5 mls/min IV NOW STA Stop: 09/04/18 13:22 Last Admin: 09/04/18 14:19 Dose: 5.5 mls/min Documented by: [id number] Morphine Sulfate (Morphine Sulfate) 3 mg IV NOW STA Stop: 09/04/18 10:00 Last Admin: 09/04/18 11:38 Dose: Not Given Documented by: [id number] Ondansetron HCl (Zofran) 4 mg IV NOW STA Stop: 09/04/18 10:00 Last Admin: 09/04/18 11:39 Dose: Not Given Documented by: [id number] Medical Decision Making Differential Diagnosis Differential diagnosis: Etiologies such as gastroenteritis, food borne illness, infections, appendicitis, diverticulitis, inflammatory bowel disease, obstruction, GI bleed, biliary pathology, cardiac process, intracranial process, as well as others were entertained Medical Records Attestation: I reviewed the patient's medical records. Home Medications Current Medication List: was personally reviewed by me Laboratory Data Attestation: I reviewed the patient's lab results. Result diagrams: 09/04/18 10:40 09/04/18 11:53 Lab Results 09/04/18 09/04/18 09/04/18 Range/Units 10:40 10:40 11:53 WBC 8.96 (4.8-10.8) K/uL RBC 3.58 L (4.2-5.4) M/uL Hgb 10.7 L (12.0-16.0) g/dL Hct 33.6 L (37-47) % MCV 93.9 (80-100) fL MCH 29.9 (25-34) pg MCHC 31.8 L (32-36) g/dL RDW Std Deviation 55.6 H (36.4-46.3) fL RDW Coeff of Calvin 16.2 H (11.5-14.5) % Plt Count 377 (130-400) K/uL MPV 9.7 (7.4-10.4) fL Immature Gran % (Auto) 0.3 % Neut % (Auto) 62.1 % Lymph % (Auto) 18.0 % [place] % (Auto) 10.6 % Eos % (Auto) 8.7 % Baso % (Auto) 0.3 % Immature Gran # (Auto) 0.03 H (0.00-0.02) K/uL Neut # (Auto) 5.56 (1.4-6.5) K/uL Lymph # (Auto) 1.61 (1.2-3.4) K/uL [place] # (Auto) 0.95 H (0.11-0.59) K/uL Eos # (Auto) 0.78 H (0-0.5) K/uL Baso # (Auto) 0.03 (0-0.2) K/uL Sodium 138 (136-145) mmol/L Potassium 4.9 (3.5-5.1) mmol/L Chloride 106 (98-107) mmol/L Carbon Dioxide 25 (21-32) mmol/L Anion Gap 7.0 (3-11) BUN 29 H (7-18) mg/dl Creatinine 1.45 H (0.6-1.2) mg/dl Est Cr Clr Drug Dosing 33.0 ml/min Est GFR ( Amer) 38.5 Est GFR (Non-Af Amer) 33.2 BUN/Creatinine Ratio 19.9 (10-20) Glucose 119 H (70-99) mg/dl Calcium 8.7 (8.5-10.1) mg/dl Total Bilirubin 0.4 (0.2-1) mg/dl AST 12 L (15-37) U/L ALT 15 (12-78) U/L Alkaline Phosphatase 85 (45-117) U/L Total Protein 7.1 (6.4-8.2) gm/dl Albumin 3.1 L (3.4-5.0) gm/dl Globulin 4.0 (2.5-4.0) gm/dl Albumin/Globulin Ratio 0.8 L (0.9-2) Lipase 105 (73-393) U/L Urine Color Urine Appearance (Clear) Urine pH (4.5-7.5) Ur Specific [place] (1.000-1.030) Urine Protein (Negative) Urine Glucose (UA) (Negative) Urine Ketones (Negative) Urine Blood (Negative) Urine Nitrite (Negative) Urine Bilirubin (Negative) Urine Urobilinogen (Negative) Ur Leukocyte Esterase (Negative) 09/04/18 Range/Units 13:02 WBC (4.8-10.8) K/uL RBC (4.2-5.4) M/uL Hgb (12.0-16.0) g/dL Hct (37-47) % MCV (80-100) fL MCH (25-34) pg MCHC (32-36) g/dL RDW Std Deviation (36.4-46.3) fL RDW Coeff of Calvin (11.5-14.5) % Plt Count (130-400) K/uL MPV (7.4-10.4) fL Immature Gran % (Auto) % Neut % (Auto) % Lymph % (Auto) % [place] % (Auto) % Eos % (Auto) % Baso % (Auto) % Immature Gran # (Auto) (0.00-0.02) K/uL Neut # (Auto) (1.4-6.5) K/uL Lymph # (Auto) (1.2-3.4) K/uL [place] # (Auto) (0.11-0.59) K/uL Eos # (Auto) (0-0.5) K/uL Baso # (Auto) (0-0.2) K/uL Sodium (136-145) mmol/L Potassium (3.5-5.1) mmol/L Chloride (98-107) mmol/L Carbon Dioxide (21-32) mmol/L Anion Gap (3-11) BUN (7-18) mg/dl Creatinine (0.6-1.2) mg/dl Est Cr Clr Drug Dosing ml/min Est GFR ( Amer) Est GFR (Non-Af Amer) BUN/Creatinine Ratio (10-20) Glucose (70-99) mg/dl Calcium (8.5-10.1) mg/dl Total Bilirubin (0.2-1) mg/dl AST (15-37) U/L ALT (12-78) U/L Alkaline Phosphatase (45-117) U/L Total Protein (6.4-8.2) gm/dl Albumin (3.4-5.0) gm/dl Globulin (2.5-4.0) gm/dl Albumin/Globulin Ratio (0.9-2) Lipase (73-393) U/L Urine Color Yellow Urine Appearance Clear (Clear) Urine pH 5.0 (4.5-7.5) Ur Specific [place] 1.040 H (1.000-1.030) Urine Protein Negative (Negative) Urine Glucose (UA) Negative (Negative) Urine Ketones Negative (Negative) Urine Blood Negative (Negative) Urine Nitrite Negative (Negative) Urine Bilirubin Negative (Negative) Urine Urobilinogen Negative (Negative) Ur Leukocyte Esterase Negative (Negative) Imaging Data Attestation: I personally reviewed and interpreted this imaging study as follows: Radiologist's Impression: ABDOMEN AND PELVIS CT WITH IV CONTRAST CT DOSE: 887.88 mGy.cm HISTORY: Acute left lower quadrant abdominal pain llq abd pain TECHNIQUE: Multiaxial CT images of the abdomen and pelvis were performed following the use of intravenous contrast. A dose lowering technique was utilized adhering to the principles of ALARA. COMPARISON STUDY: Chest radiographs 08/22/2018, PET CT 06/22/2018. FINDINGS: Interval postoperative changes about the left hilum and left lung base with consolidation about the left lung base near the surgical suture material measur ing up to 5.8 x 3.4 cm. Mild adjacent pleural thickening with trace pleural fluid. Mild subsegmental atelectasis/scarring of the right lung base. There is no pneumatosis or pneumoperitoneum identified. Prior median sternotomy. Trace subdiaphragmatic fluid measures up to 3.0 cm. Coronary arterial calcifications noted. There are multiple circumscribed hypodense lesions about the liver measuring up to 3.0 cm suggestive of probable hepatic cysts, unchanged from comparison study. No new hepatic mass lesions identified. No intrahepatic biliary ductal dilation. Prior cholecystectomy. The common bile duct is dilated to 10 mm transversely. There are several hypodense foci noted about the distal common bile duct measuring up to 5 mm compatible with choledocholithiasis. Pancreatic duct appears normal. Spleen and adrenal glands are unremarkable. Moderate generalized pancreatic atrophy with scattered punctate calcifications suggesting sequela of chronic pancreatitis. 2.2 cm soft tissue prominence about the superior pole left kidney. Bilateral cortical thinning with mildly. Multiple renal cysts with bilateral renal calcifications. Lobular cyst of the inferior pole left kidney measures up to 3.9 cm. No ureteral calculi or obstructive uropathy. Urinary bladder is predominantly decompressed. Uterus and adnexa demonstrate no acute abnormality. Extensive mixed plaque formation of the aorta and major branches. Aortobiiliac stent graft is patent. Ectasia of the infrarenal abdominal aorta, 2.9 x 2.8 cm. No adenopathy. No small bowel obstruction. Multiple nondilated fluid-filled loops of small bowel likely physiologic. The majority of the colon is decompressed with wall thickening. Fluid noted within the cecum. Mural fibrofatty changes of the cecum are noted. The appendix is not definitively seen. No secondary signs to suggest acute appendicitis. No ascites or mesenteric inflammation. Soft tissues appear unremarkable. No suspicious lytic or blastic bony lesions. Multilevel degenerative changes of the spine, pelvis and hips. IMPRESSION: 1. No bowel obstruction. 2. Mild wall thickening throughout the colon is likely secondary to nondistention without associated pericolonic inflammation. A mild nonspecific pancolitis is also the differential. Correlate clinically. 3. Postoperative changes of the left lung base with a 5.8 x 3.4 cm irregular consolidative opacity noted surrounding the suture material. Additionally, there is a trace left pleural effusion with left basilar pleural thickening. Attention at follow-up recommended. 4. Cholelithiasis with mild common bile duct distention and choledocholithiasis. No significant intrahepatic biliary ductal dilation. 5. Nonspecific trace left subdiaphragmatic free fluid. 6. 2.2 cm soft tissue prominence about the superior pole left kidney suggests asymmetric renal parenchyma with underlying renal lesion considered less likely. Attention at follow-up recommended. 7. Additional findings as above. Electronically signed by: Kel Canales M.D. 09/04/2018 1:05 PM Blood Pressure Blood Pressure Findings: Normal blood pressure MDM Narrative Patient is an 83-year-old female who presents the ER for persistent diarrhea and nausea. Labs were obtained and showed no significant leukocytosis but a mild anemia. BMP along with LFTs bilirubin and lipase was unremarkable. UA was negative. CT abdomen pelvis shows choledocholithiasis. Patient was covered with broad-spectrum antibiotics including Flagyl and cefepime. Patient was given IV fluids. She was updated at bedside along with family. Patient was discussed with hospitalist and GI. Patient was admitted for further workup of choledocholithiasis. Impression & Plan Choledocholithiasis Discharge Plan Visit Data Chief Complaint: Diarrhea Stated Complaint: weakness ED Provider: Jose Kern Discharge Problem: Choledocholithiasis Patient Disposition: Being Evaluated by Hospitalist Forms Stand Alone Forms: My [facility] Prescriptions Prescriptions: No Action pantoprazole [Protonix] 40 mg Tablet,Delayed Release (Dr/Ec) 40 mg PO DAILY RF: 0 polyethylene glycol 3350 [Miralax] 17 gram/dose Powder 17 g PO DAILY PRN (Reason: Constipation) RF: 0 levofloxacin 750 mg Tablet 750 mg PO Q48H Qty: 5 RF: 0 ipratropium-albuterol 0.5 mg-3 mg(2.5 mg base)/3 mL solution for nebulization 3 ml Inhalation Q4H PRN (Reason: Shortness Of Breath) RF: 0 divalproex [Depakote] 250 mg tablet,delayed release (DR/EC) 250 mg PO QAM RF: 0 clopidogrel [Plavix] 75 mg tablet 75 mg PO QAM RF: 0 simvastatin [Zocor] 40 mg tablet 40 mg PO HS RF: 0 isosorbide mononitrate 60 mg tablet extended release 24 hr 60 mg PO QAM RF: 0 alprazolam [Xanax] 0.25 mg tablet 0.25 mg PO HS PRN (Reason: Sleep) RF: 0 famotidine [Pepcid] 20 mg tablet 20 mg PO QPM RF: 0 irbesartan [Avapro] 75 mg tablet 75 mg PO QAM RF: 0 metoprolol succinate [Toprol XL] 25 mg tablet extended release 24 hr 25 mg PO QAM RF: 0 duloxetine [Cymbalta] 60 mg capsule,delayed release(DR/EC) 60 mg PO QAM RF: 0 Trelegy Ellipta 100-62.5-25 mcg blister with device 1 puff Inhalation QAM RF: 0 aspirin 81 mg Tablet,Delayed Release (Dr/Ec) 81 mg PO QAM RF: 0 acetaminophen 500 mg Tablet 1,000 mg PO QAM RF: 0 acetaminophen 500 mg Tablet 1,500 mg PO QPM RF: 0 nitroglycerin [Nitrostat] 0.4 mg Tablet, Sublingual 0.4 mg Sublingual DIRECTED PRN (Reason: Chest Pain) RF: 0 Referrals Referrals: Irma Reid MD [Primary Care Provider] - The scribe's documentation has been prepared under my direction and personally reviewed by me in its entirety. I confirm that the note above accurately reflects all work, treatment, procedures, and medical decision making performed by me.
[2018-09-04] MEDS ORDERED: ALPRAZolam 0.25 MG TABLET PO PRN (16:08)
[2018-09-04] MEDS ORDERED: NITROGLYCERIN SL 0.4 MG/TAB TAB SL PRN (16:08)
[2018-09-04] MEDS ORDERED: ACETAMINOPHEN 325 MG TAB PO PRN (16:08)
[2018-09-04] MEDS ORDERED: ALBUT/IPRATROP 3MG/0.5MG NEB 3 ML VIAL INH PRN (16:08)
[2018-09-04 17:05] LABS: Hematocrit (blood only) 27.6 % (37-47); Hemoglobin 8.7 g/dL (12.0-16.0)
[2018-09-04] MEDS: SODIUM CHLORIDE 0.9% 1000ML 1,000 ML IV SCH (17:13)
[2018-09-04] MEDS ORDERED: ONDANSETRON INJ 2 MG/ML 2 ML VIAL IV PRN (17:37)
[2018-09-04] MEDS: FERROUS SULFATE 325 MG TAB PO SCH (18:09)
[2018-09-04] MEDS: FAMOTIDINE 20 MG TAB PO SCH (20:55)
[2018-09-04] MEDS: PANTOprazole 40 MG in SYRINGE 0 ML IV SCH (20:55)
[2018-09-04] MEDS: SIMVASTATIN 40 MG TAB PO SCH (20:55)
[2018-09-05] MEDS: SODIUM CHLORIDE 0.9% 1000ML 1,000 ML IV SCH ×2 (04:13→16:49)
[2018-09-05] MEDS ORDERED: POLYETHYLENE (MIRALAX) 17 GM PACK PO PRN (09:00)
[2018-09-05] MEDS ORDERED: PANTOprazole 40 MG TAB PO SCH (09:00)
--- NOTE | 2018-09-05 09:23 | Gastrointestinal Consultation ---
Date of Consultation September 05, 2018 Assessment & Plan (1) Diarrhea: Resolved at present. Patient ate breakfast this AM. Patient describes frequent loose, melanotic stools prior to admission. -If diarrhea returns, consider stool studies to include C diff, gram stain, & stool culture -IV fluids, electrolyte monitoring, and supportive care per primary team Present on Admission?: Yes (2) Anemia: Hemoglobin from 10.7 on 09/04 to 8.7 on 09/05. EGD from 08/01/18 indicated gastritis and hematin. Patient did eat breakfast this AM. -Continue Protonix 40 mg IV BID -Add Carafate 1 gm four times daily prior to meals and at bedtime -Continue to monitor H/H for further drop. Patient's melena has resolved Present on Admission?: Yes (3) Choledocholithiasis: CT imaging shows CBD dilatation of 10 mm and retained stones post cholecystectomy. LFTs are unremarkable. Abdominal pain was not classic for biliary source, but has entirely resolved at present. -Monitor liver panel. If abdominal pain worsens/LFTs increase, consider ERCP for further evaluation. Present on Admission?: Yes Supervising Physician Co-Signing Physician Notes Agree with RJ Aburto as above Abd: Soft, NT, ND, +BS Continue current therapy If continued decrease H/H, could consider repeat EGD/Colonoscopy Aspirin and Plavix on Hold Will need outpatient EUS and ERCP as per [facility] I will be away the rest of this week, if any questions arise, please contact [facility], who are covering my service. 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 She reports that her symptoms began 1-2 days prior to arrival. She reports she developed mid abdominal pain with black, tarry diarrhea. She reports that this has resolved since admission to the hospital. She denies heartburn or reflux. She denies RUQ pain, jaundice, or pruritus. Upon evaluation here at [facility], it appears she had a CT scan that was not enhanced with oral contrast that indicated retained stones of her bile ducts and CBD dilatation of 10 mm s/p cholecystectomy. There was questionable thickening of the colon, though radiology did feel this was possibly due to underdistention. Since yesterday, her hemoglobin did drop 2 grams. Her H/H at present is 8.7/27.6. INR 1.0. BUN/Cr 29/1.45. She had an EGD on 08/01/18 that indicated g astritis & hematin in the stomach. She denies NSAID use with the exception of her Aspirin. She does take Plavix daily. She denies family history of GI malignancy. At present, her pain is controlled and she has had no further diarrhea. She is currently on Protonix. Allergies Allergy/AdvReac Type Severity Reaction Status Date / Time donepezil Allergy Intermediate Diarrhea Verified 09/04/18 11:07 Penicillins Allergy Unknown SWELLING Verified 09/04/18 11:07 Sulfa (Sulfonamide Allergy Unknown SWELLING Verified 09/04/18 11:07 Antibiotics) Home Medications Home Medications Medication Instructions Recorded Confirmed Type Trelegy Ellipta 1 puff INHALATION QAM 06/30/18 09/04/18 History acetaminophen 1,000 mg PO QAM 06/30/18 09/04/18 History acetaminophen 1,500 mg PO QPM 06/30/18 09/04/18 History alprazolam [Xanax] 0.25 mg PO HS PRN 06/30/18 09/04/18 History aspirin 81 mg PO QAM 06/30/18 09/04/18 History clopidogrel [Plavix] 75 mg PO QAM 06/30/18 09/04/18 History divalproex [Depakote] 250 mg PO QAM 06/30/18 09/04/18 History duloxetine [Cymbalta] 60 mg PO QAM 06/30/18 09/04/18 History famotidine [Pepcid] 20 mg PO QPM 06/30/18 09/04/18 History ipratropium-albuterol 3 ml INHALATION Q4H PRN 06/30/18 09/04/18 History irbesartan [Avapro] 75 mg PO QAM 06/30/18 09/04/18 History isosorbide mononitrate 60 mg PO QAM 06/30/18 09/04/18 History metoprolol succinate [Toprol XL] 25 mg PO QAM 06/30/18 09/04/18 History nitroglycerin [Nitrostat] 0.4 mg SUBLINGUAL DIRECTED PRN 06/30/18 09/04/18 History simvastatin [Zocor] 40 mg PO HS 06/30/18 09/04/18 History pantoprazole [Protonix] 40 mg PO DAILY 08/10/18 09/04/18 History polyethylene glycol 3350 [Miralax] 17 g PO DAILY PRN 08/10/18 09/04/18 History levofloxacin 750 mg PO Q48H #5 tab 08/13/18 09/04/18 Rx Patient History Medical History Emphysema lung Pulmonary nodule, left Hypertension (Chronic) Brain aneurysm (Chronic) Heart disease (Chronic) CAD (coronary artery disease) Hx of myocardial infarction COPD (chronic obstructive pulmonary disease) (Inactive) Anemia Chronic headaches Dementia Hyperlipidemia On home oxygen therapy 2L/MIN NC HS ONLY Osteoarthritis SOB (shortness of breath) Surgical History S/P shoulder surgery RIGHT-PLATE AND SCREWS Hx of cholecystectomy (Chronic) Hx of CABG (Chronic) TRIPLE-AGE 61 H/O heart artery stent (Chronic) Status post lung surgery History of cardiac cath 1 STENT PLACED 10 YRS AGO Social History Communication Ability: Effective Beliefs That Will Affect Care: None marital status: Single Current Living Situation: Family current occupational status: retired Other Information That Helps Us Care for You: No Feels Safe at Home: Yes Safety Concerns: Feels Safe At This Time Smoking Status: Current every day smoker Hx Alcohol Use: No Hx Substance Use: No Review of Systems Constitutional: + fatigue; no fever and no chills no reported complaints Respiratory: + cough Cardiovascular: no chest pain Gastrointestinal: no abdominal pain (improved at present), no heartburn, no vomiting, no coffee ground emesis and no dysphagia melena & diarrhea resolved no acute complaints Integumentary: no rash Neurologic: + unsteadiness no acute complaints Endocrine: no fatigue Hematologic / Lymphatic: + easy bleeding Physical Exam Vital Signs (Past 24 Hours): Last Vital Signs Temp 36.7 C 09/05/18 07:58 Pulse 78 09/05/18 07:58 Resp 17 09/05/18 07:58 BP 172/82 H 09/05/18 07:58 Pulse Ox 97 09/05/18 07:58 Constitutional: WD/WN, vitals as above Eyes: PERRL, conjunctivae normal, anicteric sclerae ENMT: external ear and nose normal, oropharynx normal Neck: normal visual inspection Respiratory: normal respiratory effort Cardiovascular: Rate/Rhythm: regular rate and regular rhythm Gastrointestinal (Abdomen): normal bowel sounds, soft, nontender, no he patosplenomegaly Skin: no rashes, warm and dry Psychiatric: Orientation: alert and oriented x 3 (1) Anemia Anemia type: unspecified type Qualified Code(s): D64.9 - Anemia, unspecified
[2018-09-05] MEDS: PANTOprazole 40 MG in SYRINGE 0 ML IV SCH ×2 (10:01→21:30)
[2018-09-05] MEDS: DULOXETINE HCL 60 MG CAP PO SCH (10:01)
[2018-09-05] MEDS: METOPROLOL SUCC 25MG EXT REL TAB PO SCH (10:01)
[2018-09-05] MEDS: ISOSORBIDE MONO EXTENDED REL 60 MG TABCR PO SCH (10:01)
[2018-09-05] MEDS: DIVALPROEX DELAY RELEASE 250 MG TABEC PO SCH (10:02)
[2018-09-05] MEDS: FERROUS SULFATE 325 MG TAB PO SCH ×2 (10:02→17:39)
[2018-09-05] MEDS: IRBESARTAN 75 MG TAB PO SCH (10:02)
[2018-09-05 10:15] LABS: Basophils # (auto) 0.04 K/uL (0-0.2); Basophils % (auto) 0.6 %; Eosinophils # (auto) 0.44 K/uL (0-0.5); Hematocrit (blood only) 28.2 % (37-47); Hemoglobin 9.3 g/dL (12.0-16.0); Immature Granulocytes # (auto) 0.01 K/uL (0.00-0.02); Immature Granulocytes % (auto) 0.2 %; Lymphocytes # (auto) 1.33 K/uL (1.2-3.4); Lymphocytes % (auto) 21.3 %; Mean Corpuscular Volume 93.1 fL (80-100); Mean Platelet Volume 8.8 fL (7.4-10.4); Monocytes # (auto) 0.57 K/uL (0.11-0.59); Monocytes % (auto) 9.1 %; Neutrophils # (auto) 3.86 K/uL (1.4-6.5); Neutrophils % (auto) 61.8 %; Platelet Count 283 K/uL (130-400); RDW Coefficient of Variation 16.2 % (11.5-14.5); RDW Standard Deviation 54.3 fL (36.4-46.3); Red Blood Count 3.03 M/uL (4.2-5.4); White Blood Count 6.25 K/uL (4.8-10.8)
[2018-09-05 10:26] LABS: Reticulocytes # 0.06 10^6/uL (0.02-0.10)
[2018-09-05 10:31] LABS: Prothrombin Time 10.6 Seconds (9.0-12.0)
[2018-09-05 10:38] LABS: Albumin Globulin Ratio 0.8 (0.9-2); Albumin Level 2.8 gm/dl (3.4-5.0); BUN Creatinine Ratio 13.5 (10-20); Bilirubin,Total 0.3 mg/dl (0.2-1); Calcium 8.6 mg/dl (8.5-10.1); Est GFR (African American) 51.5; Est GFR (Non-African American) 44.4; Globulin 3.5 gm/dl (2.5-4.0); Total Protein 6.3 gm/dl (6.4-8.2)
[2018-09-05] MEDS: SUCRALFATE 1 GM/10 ML UDC PO SCH ×3 (10:52→17:38)
[2018-09-05 15:39] LABS: Hematocrit (blood only) 26.9 % (37-47); Hemoglobin 8.7 g/dL (12.0-16.0)
--- NOTE | 2018-09-05 16:10 | Family Medicine Progress Note ---
Date of Service September 05, 2018 Assessment & Plan (1) Choledocholithiasis: CT imaging shows CBD dilatation of 10 mm and several hypodense foci noted about the distal common bile duct measuring up to 5mm compatible with choledocholithiasis from retained stones post cholecystectomy. LFTs are not elevated for obstruction causing liver injury. Notes pain after eating chicken wings, but no gallbladder. - Possibly was planning for consideration for ERCP but was not NPO after midnight. - GI did not feel need for ERCP at the moment, agree with plan, will re-evaluate for worsening pain overnight and re-evaluation of LFTs in the morning. - will remain on current diet (2) Diarrhea: Patient notes one episode of diarrhea this morning that was dark. Patient describes frequent loose, melanotic stools prior to admission. She is on supplemental iron -C. diff ordered on admission -IV fluids NSS @ 80mls/hr - follow electrolytes -CT showed Moderate generalized pancreatic atrophy with scattered punctate calcifications suggesting sequela of chronic pancreatitis. Diarrhea could be secondary to osmotic from pancreatic insufficiency. (3) Anemia: EGD from 08/01/18 indicated gastritis and hematin in the gastric antum -On admit 10.7 -> 8.7 -> this AM 9.3 -> PM repeat lab 8.7 -Continue Protonix 40 mg IV BID -Add Carafate 1 gm four times daily prior to meals and at bedtime -Continue to monitor H/H -Hold Plavix and ASA. -Will check a stool hemoccult. -Continue ferrous sulfate. (4) Acid reflux: Continue pantoprazole and pepcid. (5) COPD (chronic obstructive pulmonary disease): Mixed restrictive and obstructive lung disease stable. Continue Trelegy Ellipta and ipratropium-albuterol. (6) Hypertension: Continue Avapro, isosorbide, metoprolol some elevated systolic values with 24-hour values ranging from 123-172/63-82 (7) CAD (coronary artery disease): Continue Avapro, isosorbide, metoprolol, nitrolygcerin PRN, and simvastatin. Plavix held. (8) Non-small cell carcinoma of lung: s/p LLL wedge resection by Dr. Del Rosario on 08/10/18 for bronchogenic carcinoma (9) DVT prophylaxis: SCDs Supervising Physician Co-Signing Physician Notes Patient seen and examined with the resident. Agree with history, physical exam, assessment and plan with the following updates/corrections: 83yo F w/ hx of CAD (3vCABG and stent in 2006) who presents with dark, watery stools and concern for GI bleed. 1) Melenic stools - Concern for upper GI bleed, likely a result of ASA/Plavix. Seen by GI with plan to hold anti-platelet agents and do repeat EGD/EBUS/ERCP in 10-14 days after platelet agents worn off. - Trend hgb 2) CAD - Significant history, but as last stent was in 2006, they can be held x 2 weeks for above procedure - Continue other agents Subjective Cristina reports RUQ pain has improved today. She notes one episode of dark di arrhea this morning but none since. She denies any bright red blood per rectum. She denies any chest pain, shortness of breath, fever, or chills. She cannot recall type of non-small cell lung cancer she had, but notes that treatment was surgical only. Physical Exam Vital Signs (Past 24 Hours): Last Vital Signs Temp 36.5 C 09/05/18 15:25 Pulse 80 09/05/18 15:25 Resp 18 09/05/18 15:25 BP 168/74 H 09/05/18 15:25 Pulse Ox 93 09/05/18 15:25 Constitutional: WD/WN, vitals as above Eyes: + anicteric sclerae and EOM intact bilaterally Neck: trachea midline Respiratory: normal respiratory effort, lungs clear to auscultation Cardiovascular: Rate/Rhythm: regular rate and regular rhythm Gastrointestinal (Abdomen): Inspection/Auscultation: normal bowel sounds Percussion/Palpation: + abdomen tender (mild RUQ pain without rebound) and abdomen soft; no guarding Musculoskeletal: Head/Neck/Chest: normocephalic and head atraumatic Skin: + pallor (mild) Neurologic: moves all extremities and awake Psychiatric: A+Ox3, euthymic affect Results & Data Laboratory Results Laboratory Results - last 24 hr 09/04/18 09/04/18 09/05/18 16:57 21:02 09:48 WBC 6.25 RBC 3.03 L Hgb 8.7 L 9.3 L Hct 27.6 L 28.2 L MCV 93.1 MCH 30.7 MCHC 33.0 RDW Std Deviation 54.3 H RDW Coeff of Calvin 16.2 H Plt Count 283 MPV 8.8 Immature Gran % (Auto) 0.2 Neut % (Auto) 61.8 Lymph % (Auto) 21.3 Morton % (Auto) 9.1 Eos % (Auto) 7.0 Baso % (Auto) 0.6 Reticulocyte % (Auto) 2.0 Immature Gran # (Auto) 0.01 Neut # (Auto) 3.86 Lymph # (Auto) 1.33 Morton # (Auto) 0.57 Eos # (Auto) 0.44 Baso # (Auto) 0.04 Reticulocyte # 0.06 Absolute Nucleated RBC 0.00 Nucleated RBC % (auto) 0.0 PT INR Sodium Potassium 4.3 Chloride Carbon Dioxide Anion Gap BUN Creatinine Est Cr Clr Drug Dosing Est GFR ( Amer) Est GFR (Non-Af Amer) BUN/Creatinine Ratio Glucose Calcium Total Bilirubin AST ALT Alkaline Phosphatase Total Protein Albumin Globulin Albumin/Globulin Ratio 09/05/18 09/05/18 09/05/18 09:48 09:48 09:48 WBC RBC Hgb Hct MCV MCH MCHC RDW Std Deviation RDW Coeff of Calvin Plt Count MPV Immature Gran % (Auto) Neut % (Auto) Lymph % (Auto) Morton % (Auto) Eos % (Auto) Baso % (Auto) Reticulocyte % (Auto) Cancelled Immature Gran # (Auto) Neut # (Auto) Lymph # (Auto) Morton # (Auto) Eos # (Auto) Baso # (Auto) Reticulocyte # Cancelled Absolute Nucleated RBC Nucleated RBC % (auto) PT 10.6 INR 1.0 Sodium 141 Potassium 4.0 Chloride 109 H Carbon Dioxide 21 Anion Gap 10.0 BUN 15 Creatinine 1.14 D Est Cr Clr Drug Dosing 42.0 Est GFR ( Amer) 51.5 Est GFR (Non-Af Amer) 44.4 BUN/Creatinine Ratio 13.5 Glucose 131 H Calcium 8.6 Total Bilirubin 0.3 AST 14 L ALT 14 Alkaline Phosphatase 73 Total Protein 6.3 L Albumin 2.8 L Globulin 3.5 Albumin/Globulin Ratio 0.8 L 09/05/18 14:58 WBC RBC Hgb 8.7 L Hct 26.9 L MCV MCH MCHC RDW Std Deviation RDW Coeff of Calvin Plt Count MPV Immature Gran % (Auto) Neut % (Auto) Lymph % (Auto) Morton % (Auto) Eos % (Auto) Baso % (Auto) Reticulocyte % (Auto) Immature Gran # (Auto) Neut # (Auto) Lymph # (Auto) Morton # (Auto) Eos # (Auto) Baso # (Auto) Reticulocyte # Absolute Nucleated RBC Nucleated RBC % (auto) PT INR Sodium Potassium Chloride Carbon Dioxide Anion Gap BUN Creatinine Est Cr Clr Drug Dosing Est GFR ( Amer) Est GFR (Non-Af Amer) BUN/Creatinine Ratio Glucose Calcium Total Bilirubin AST ALT Alkaline Phosphatase Total Protein Albumin Globulin Albumin/Globulin Ratio Medications Administered Divalproex Sodium (Depakote Delay Release) 250 mg PO QAM [facility] Stop: 10/05/18 08:59 Last Admin: 09/05/18 10:02 Dose: 250 mg Documented by: [id number] Duloxetine HCl (Cymbalta) 60 mg PO QAM [facility] Stop: 10/05/18 08:59 Last Admin: 09/05/18 10:01 Dose: 60 mg Documented by: [id number] Famotidine (Pepcid) 20 mg PO QPM [facility] Stop: 10/04/18 20:59 Last Admin: 09/04/18 20:55 Dose: 20 mg Documented by: [id number] Ferrous Sulfate (Feosol) 325 mg PO BIDM [facility] Stop: 10/04/18 16:59 Last Admin: 09/05/18 10:02 Dose: 325 mg Documented by: [id number] Admin: 09/04/18 18:09 Dose: 325 mg Documented by: [id number] Sodium Chloride (Nss 1000ml) 1,000 mls @ 80 mls/hr IV .[id number] [facility] Stop: 10/04/18 16:07 Last Admin: 09/05/18 04:13 Dose: 80 mls/hr Documented by: [id number] Infusion: 09/05/18 04:13 Dose: 80 mls/hr Documented by: [id number] Infusion: 09/04/18 22:42 Dose: 80 mls/hr Documented by: [id number] Admin: 09/04/18 17:13 Dose: 80 mls/hr Documented by: [id number] Pantoprazole Sodium 40 mg/ (Syringe) 10 mls @ 5 mls/min IV BID [facility] Stop: 10/04/18 20:59 Last Admin: 09/05/18 10:01 Dose: 5 mls/min Documented by: [id number] Admin: 09/04/18 20:55 Dose: 5 mls/min Documented by: [id number] [facility] ([facility]ro) [facility]: 10/05/18 08:59 Last Admin: 09/05/18 10:02 Dose: 75 mg Documented by: [id number] Isosorbide Mononitrate (Imdur Extended Rel) 60 mg PO [facility] Stop: 10/05/18 08:59 Last Admin: 09/05/18 10:01 Dose: 60 mg Documented by: [id number] Metoprolol Succinate (Toprol Xl) 25 mg PO [facility] Stop: 10/05/18 08:59 Last Admin: 09/05/18 10:01 Dose: 25 mg Documented by: [id number] Miscellaneous (Order Awaiting Action) 1 ea N/A QS [facility] Stop: 10/05/18 00:00 Last Admin: 09/05/18 10:03 Dose: Not Given Documented by: [id number] Admin: 09/04/18 22:53 Dose: Not Given Documented by: [id number] Simvastatin (Zocor) 40 mg PO HS [facility] Stop: 10/04/18 20:59 Last Admin: 09/04/18 20:55 Dose: 40 mg Documented by: [id number] Sucralfate (Carafate) 1 gm PO QID [facility] Stop: 10/05/18 09:59 Last Admin: 09/05/18 13:11 Dose: 1 gm Documented by: [id number] Admin: 09/05/18 10:52 Dose: 1 gm Documented by: [id number] (1) CAD (coronary artery disease) Associated angina: angina presence unspecified Coronary Disease-Associated Artery/Lesion type: unspecified vessel or lesion type [place] vs. transplanted heart: [place] heart Qualified Code(s): I25.10 - Atherosclerotic heart disease of [place] coronary artery without angina pectoris (2) Anemia Anemia type: unspecified type Qualified Code(s): D64.9 - Anemia, unspecified (3) COPD (chronic obstructive pulmonary disease) COPD type: emphysema Emphysema type: unspecified Qualified Code(s): J43.9 - Emphysema, unspecified (4) Acid reflux Esophagitis presence: without esophagitis Qualified Code(s): K21.9 - Gastro- esophageal reflux disease without esophagitis
[2018-09-05] MEDS: SUCRALFATE 1 GM TAB PO SCH (21:29)
[2018-09-05] MEDS: FAMOTIDINE 20 MG TAB PO SCH (21:30)
[2018-09-05] MEDS: SIMVASTATIN 40 MG TAB PO SCH (21:30)
[2018-09-06] MEDS: SODIUM CHLORIDE 0.9% 1000ML 1,000 ML IV SCH (05:17)
[2018-09-06 06:54] LABS: Basophils # (auto) 0.02 K/uL (0-0.2); Basophils % (auto) 0.3 %; Eosinophils # (auto) 0.41 K/uL (0-0.5); Eosinophils % (auto) 6.2 %; Hematocrit (blood only) 27.5 % (37-47); Hemoglobin 9.1 g/dL (12.0-16.0); Immature Granulocytes # (auto) 0.05 K/uL (0.00-0.02); Immature Granulocytes % (auto) 0.8 %; Lymphocytes # (auto) 1.54 K/uL (1.2-3.4); Lymphocytes % (auto) 23.4 %; Mean Corpuscular Hgb Conc 33.1 g/dL (32-36); Mean Corpuscular Volume 91.7 fL (80-100); Mean Platelet Volume 9.3 fL (7.4-10.4); Monocytes # (auto) 1.03 K/uL (0.11-0.59); Monocytes % (auto) 15.6 %; Neutrophils # (auto) 3.54 K/uL (1.4-6.5); Neutrophils % (auto) 53.7 %; Platelet Count 259 K/uL (130-400); RDW Coefficient of Variation 16.1 % (11.5-14.5); RDW Standard Deviation 54.4 fL (36.4-46.3); White Blood Count 6.59 K/uL (4.8-10.8)
[2018-09-06 07:22] LABS: Albumin Level 2.9 gm/dl (3.4-5.0); BUN Creatinine Ratio 12.7 (10-20); Calcium 8.3 mg/dl (8.5-10.1); Creatinine Clr Calc Pharmacy 42.3 ml/min; Est GFR (African American) 52.1; Est GFR (Non-African American) 44.9; Potassium 3.7 mmol/L (3.5-5.1)
[2018-09-06 07:25] LABS: Albumin Globulin Ratio 0.9 (0.9-2); Bilirubin,Total 0.3 mg/dl (0.2-1); Globulin 3.3 gm/dl (2.5-4.0); Total Protein 6.2 gm/dl (6.4-8.2)
[2018-09-06] MEDS: SUCRALFATE 1 GM TAB PO SCH ×2 (07:34→12:47)
[2018-09-06] MEDS: FERROUS SULFATE 325 MG TAB PO SCH (07:35)
[2018-09-06] MEDS: PANTOprazole 40 MG in SYRINGE 0 ML IV SCH (07:35)
[2018-09-06] MEDS: IRBESARTAN 75 MG TAB PO SCH (07:35)
[2018-09-06] MEDS: DIVALPROEX DELAY RELEASE 250 MG TABEC PO SCH (07:35)
[2018-09-06] MEDS: ISOSORBIDE MONO EXTENDED REL 60 MG TABCR PO SCH (07:35)
[2018-09-06] MEDS: DULOXETINE HCL 60 MG CAP PO SCH (07:35)
[2018-09-06] MEDS: METOPROLOL SUCC 25MG EXT REL TAB PO SCH (07:35)
--- NOTE | 2018-09-06 10:43 | Discharge Summary ---
Date of Service September 06, 2018 Admission HPI Per Admitting Provider 83 yo female with a history of hypertension, dyslipidemia, PAD status post femoral stents in 2006, cerebrovascular disease (inoperable MCA aneurysm 2015), COPD PVD/emphysema, CAD status post CABG x3 1997 and intracoronary stent placement 2006, and non-small cell lung cancer presents today with c/o abdominal pain and diarrhea x 2 days. She denies f/c or n/v. She c/o tarry stools, but is currently on iron supplementation. She is s/p LLL wedge resection on 08-10-28 for non-small cell lung cancer. The pt's daughter reports that she was transfused with 2 units of PRBCs and started on iron prior to surgery for anemia. She is s/p EGD with Dr. Garber on 08-01-18 which showed gastritis and hematin in the gastric antum. H&H today is stable at 10.[address] scan shows the common bile duct is dilated to 10 mm to Yasmine lithiasis. There is also mild wall thickening throughout the colon. She is also noted to have a trace left pleural effusion. Creatinine is slightly elevated today 1.45; baseline 1.1 in July. Admission Exam Per Admitting Provider The patient is afebrile. Vital signs stable. Constitutional: + overweight; no acute distress Eyes: PERRL ENMT: Ears: no TM abnormality Neck: trachea midline, no thyromegaly Respiratory: no respiratory distress and no labored breathing Auscultation: + wheezes Cardiovascular: RRR, no murmur, no edema Gastrointestinal (Abdomen): Inspection/Auscultation: normal bowel sounds Percussion/Palpation: abdomen soft; abdomen nontender and no hepatosplenomegaly Psychiatric: A+Ox3, euthymic affect Lymphatic: no cervical or axillary lymphadenopathy Principal Diagnosis Choledocholithiasis Discharge Exam Constitutional WD/WN, vitals as above Eyes + anicteric sclerae and EOM intact bilaterally Neck trachea midline Respiratory normal respiratory effort, lungs clear to auscultation Cardiovascular Rate/Rhythm: regular rate and regular rhythm Gastrointestinal (Abdomen) Inspection/Auscultation: normal bowel sounds Percussion/Palpation: abdomen soft; abdomen nontender and no guarding Musculoskeletal Head/Neck/Chest: normocephalic and head atraumatic Neurologic moves all extremities and awake Psychiatric Orientation: alert and oriented to person; + not oriented to place (cannot recall) and + not oriented to time (year 2012) Eye Contact: good eye contact Affect: euthymic affect Hallucinations: + visual hallucinations (believes she saw a squirrel and groundhog at door this morning) Discharge Data Allergies Allergy/AdvReac Type Severity Reaction Status Date / Time donepezil Allergy Intermediate Diarrhea Verified 09/04/18 11:07 Penicillins Allergy Unknown SWELLING Verified 09/04/18 11:07 Sulfa (Sulfonamide Allergy Unknown SWELLING Verified 09/04/18 11:07 Antibiotics) Consultations 09/04/18 13:45 ED Decision to Admit Stat 09/04/18 16:08 Consult Case Management - Discharge Planning Routine Consult Gastroenterology Routine Ordered Studies 09/04/18 09:59 CT abd pelvis IV con only Stat Hospital Course (1) Choledocholithiasis: CT imaging shows CBD dilatation of 10 mm and several hypodense foci noted about the distal common bile duct measuring up to 5mm compatible with choledocholithiasis from retained stones post cholecystectomy. LFTs were not elevated for post-obstructive liver injury. Notes pain after eating chicken wings prior to arrival to ED, but hx of cholecystectomy. - There was consideration for possible ERCP during inpatient stay, but agree with GI that this can be done as outpatient in 10-14 days. - Her abdominal pain appears resolved. (2) Diarrhea: Patient notes one episode of diarrhea on morning of 09/05/18 that was dark. Patient describes frequent loose, melanotic stools prior to admission. She is on supplemental iron. -C. diff ordered on admission but was not collected, symptoms do not appear consistent with C-diff infection, diarrhea stable on discharge with no events for past 24 hours. If persistent can workup c-diff, gram stain, stool cultures as outpatient. -IV fluids NSS @ 80mls/hr during stay, discontinued prior prior to discharge home - electrolytes have been stable -CT showed Moderate generalized pancreatic atrophy with scattered punctate calcifications suggesting sequela of chronic pancreatitis. Diarrhea could be secondary to osmotic effect from pancreatic insufficiency. (3) Anemia: EGD from 08/01/18 indicated gastritis and hematin in the gastric antum -On admit 10.7 -> 8.7 -> this 3/4 AM 9.3 -> 3/4 PM repeat lab 8.7 -> day of discharge 9.1. Hgb stable. -Received Protonix 40 mg IV BID here -stool hemoccult unfortunately not performed during stay -Continue ferrous sulfate. -Added Carafate 1 gm four times daily prior to meals and at bedtime and will continue on discharge home. -Held Plavix and ASA during admission and will hold on discharge home. -Continue home pepcid 20mg qPM and protonix 40mg PO qday dose (4) Confusion: disoriented night before discharge home and morning of discharge home, not oriented to time and place. - discussed with daughter Nancy who stated that patient has history of same at home, believe to be related to underlying cognitive impairment that is exacerbated by unfamiliar hospital environment. - recommend outpatient follow up if persists or worsens, no signs of infection process here. (5) Acid reflux: Continue pantoprazole and pepcid. (6) COPD (chronic obstructive pulmonary disease): Mixed restrictive and obstructive lung disease stable. Continue Trelegy Ellipta and ipratropium-albuterol. (7) Hypertension: Continue Avapro, isosorbide, metoprolol some elevated systolic values here with value this morning of 175/72 (8) CAD (coronary artery disease): Continue Avapro, isosorbide, metoprolol, nitrolygcerin PRN, and simvastatin. Plavix held. (9) Non-small cell carcinoma of lung: s/p LLL wedge resection by Dr. Del Rosario on 08/10/18 for bronchogenic carcinoma (10) DVT prophylaxis: SCDs Total Time Total Time Spent Total Time Spent (In Minutes): 30 Total Time Includes: Examination of the Patient, Discharge Planning, Medication Reconciliation and Communication With Other Providers Discharge Plan Discharge Items Patient Disposition: Home - Home Health Services Reason For Visit: ABDOMINAL PAIN, DIARRHEA, CHOLEDOCHOLITHIASIS Discharge Diagnosis: Choledocholithaisis Discharge Goals: Therapeutic intervention Activity: Per 'Additional Instructions' section Non-emergency contact: Primary Care Provider Call non-emergency contact if: you have any medication questions, your symptoms worsen, your pain is not controlled and your pain is concerning for you Follow-up/Referrals: Irma Reid MD [Primary Care Provider] - 09/13/18 2:30 pm (Please, follow up at Dr. Reid's office with her freezer assistant, Ashley Alexander PA-C on WednesdaySeptember 13 at 2:30 pm. *If you need to change this appointment, call the office at [phone].) Diet: Low Fat Addtl Provider Instructions: You were admitted for choledocholithiasis or a gallstone in the common bile duct. In the Emergency department, this was found on CT Abdomen/Pelvis. There were several hypodense foci noted about the distal common bile duct measuring up to 5mm that was compatible with choledocholithasis. You were seen. evaluated and treated by Gastrointestional team during your stay. Recommendation will be to have ERCP procedure to remove stone from bile duct as an outpatient in 10-14 days, per Dr. Jcarlos OWENS. Two prescriptions have been sent to [facility]. 1. Ferrous Sulfate (Iron supplement) 325mg tablet, delayed release. You will take one tablet, twice per day. Iron is needed to make new red blood cells and will be used to help your anemia. 2. Sucralfate 1 gram tablet. Four times per day. Take prior to meals and at bedtime. This medication helps to prevent damage to stomach mucosa/lining to prevent a stomach bleed from acid production. You will discontinue your aspirin and plavix on discharge. This was held during your hospital stay. Continue all other medications as previously prescribed. Continue to not smoke, you are doing great!!! Please return to Emergency Department if you believe you are having symptoms of a stomach bleed, worsening shortness of breath, vomiting of blood. Prescriptions: New sucralfate 1 gram Tablet 1 g PO QID 30 Days Qty: 120 RF: 0 ferrous sulfate 325 mg (65 mg iron) Tablet,Delayed Release (Dr/Ec) 325 mg PO BIDM 30 Days Qty: 60 RF: 0 Continued pantoprazole [Protonix] 40 mg Tablet,Delayed Release (Dr/Ec) 40 mg PO DAILY RF: 0 polyethylene glycol 3350 [Miralax] 17 gram/dose Powder 17 g PO DAILY PRN (Reason: Constipation) RF: 0 ipratropium-albuterol 0.5 mg-3 mg(2.5 mg base)/3 mL solution for nebulization 3 ml Inhalation Q4H PRN (Reason: Shortness Of Breath) RF: 0 divalproex [Depakote] 250 mg tablet,delayed release (DR/EC) 250 mg PO QAM RF: 0 simvastatin [Zocor] 40 mg tablet 40 mg PO HS RF: 0 isosorbide mononitrate 60 mg tablet extended release 24 hr 60 mg PO QAM RF: 0 alprazolam [Xanax] 0.25 mg tablet 0.25 mg PO HS PRN (Reason: Sleep) RF: 0 famotidine [Pepcid] 20 mg tablet 20 mg PO QPM RF: 0 irbesartan [Avapro] 75 mg tablet 75 mg PO QAM RF: 0 metoprolol succinate [Toprol XL] 25 mg tablet extended release 24 hr 25 mg PO QAM RF: 0 duloxetine [Cymbalta] 60 mg capsule,delayed release(DR/EC) 60 mg PO QAM RF: 0 Trelegy Ellipta 100-62.5-25 mcg blister with device 1 puff Inhalation QAM RF: 0 acetaminophen 500 mg Tablet 1,000 mg PO QAM RF: 0 acetaminophen 500 mg Tablet 1,500 mg PO QPM RF: 0 nitroglycerin [Nitrostat] 0.4 mg Tablet, Sublingual 0.4 mg Sublingual DIRECTED PRN (Reason: Chest Pain) RF: 0 Discontinued levofloxacin 750 mg Tablet 750 mg PO Q48H Qty: 5 RF: 0 clopidogrel [Plavix] 75 mg tablet 75 mg PO QAM RF: 0 aspirin 81 mg Tablet,Delayed Release (Dr/Ec) 81 mg PO QAM RF: 0 Stand-Alone Forms: [facility]/Other Patient Handouts: Bleeding Gastrointestinal, ERCP, Gallstones Tx, Supplements Iron Discharge Orders: Discharge Order (Routine); Ordered 09/06/18 Ordered By: Celestine Kay Admission Data Admit Date/Time: 09/04/18 14:33 Attending Provider: Daniel Bonilla Admit Provider: Дмитрий Lerma Primary Care Provider: Irma Reid Other Providers: Shakeel Garber ; Daniel Bonilla Service: Medical Other Interventions: Discharge Summary Assessment (RN) Last Done: 09/06/18 12:00 DC Date/Time DO NOT enter until pt leaves facility: 09/06/18 13:01 Supervising Physician Co-Signing Physician Notes I saw and examined the patient today with the resident. Stable hgb and no further BMs while inpatient. Concern for an upper GI bleed, though likely self-resolved with holding ASA/Plavix. - Will hold ASA/Plavix until EGD/EBUS/ERCP by GI in 10-14 days. - Added PPI and carafate per GI recs. On discharge, patient was having significant confusion. Discussed possible causes including infection, metabolic cause, or hospital delirium with the patient's daughter who conferred with her sister. Patient's daughters reported this had occurred before and had been related to medications in the hospital and delirium. They elected to take the patient home with plan to return to home environment. We discussed that Ms. Maier could stay another day if they were more comfortable with that, but they decided to take her home. I did tell them that if it got worse or did not improve in 24-48 hours to return to the hospital.
== END 2018-09-06 13:01 | disposition home health service (06) | DRG 446 ==
LOC: ED 09:45 → 3N 14:33 → SUATTDRO 14:33 → 3N 15:48

== ENCOUNTER 2018-10-05 12:45 | Inpatient (IN) ==
[2018-10-05 14:06] LABS: Basophils # (auto) 0.02 K/uL (0-0.2); Basophils % (auto) 0.2 %; Eosinophils # (auto) 0.45 K/uL (0-0.5); Eosinophils % (auto) 5.5 %; Hematocrit (blood only) 31.8 % (37-47); Hemoglobin 10.3 g/dL (12.0-16.0); Immature Granulocytes # (auto) 0.02 K/uL (0.00-0.02); Immature Granulocytes % (auto) 0.2 %; Lymphocytes # (auto) 1.53 K/uL (1.2-3.4); Lymphocytes % (auto) 18.8 %; Mean Corpuscular Hgb Conc 32.4 g/dL (32-36); Mean Corpuscular Volume 95.5 fL (80-100); Mean Platelet Volume 9.5 fL (7.4-10.4); Monocytes # (auto) 0.99 K/uL (0.11-0.59); Monocytes % (auto) 12.1 %; Neutrophils # (auto) 5.14 K/uL (1.4-6.5); Neutrophils % (auto) 63.2 %; Platelet Count 272 K/uL (130-400); RDW Coefficient of Variation 14.4 % (11.5-14.5); RDW Standard Deviation 50.7 fL (36.4-46.3); Red Blood Count 3.33 M/uL (4.2-5.4); White Blood Count 8.15 K/uL (4.8-10.8)
--- NOTE | 2018-10-05 14:09 | XRay Report ---
SINGLE VIEW CHEST CLINICAL HISTORY: Atypical chest pain. FINDINGS: An AP, portable, upright chest radiograph is compared to study dated 08/22/2018 and correlat ed with chest CT dated 06/07/2018. The examination is degraded by portable technique and patient rotat ion. The patient is status post midline sternotomy. The heart is enlarged and there is atherosclerot ic calcification of the thoracic aorta. The pulmonary vasculature is noncongested. Emphysema and maintenance groundman krunal interstitial thickening are similar to previous. There is volume loss consistent with left-sided pulmonary resection. Airspace opacities are again seen at the left lung base. The right lung appears clear. No large pleural effusion or pneumothorax is identified. The skeletal structures are osteopeni c. There are healed right-sided rib fractures. A right shoulder arthroplasty is in place. Arthritic c hange is noted in the left shoulder. IMPRESSION: 1. Cardiomegaly and emphysema with evidence of previous left-sided pulmonary resection. 2. Airspace opacities are again seen at the left lung base and likely represents scar/atelectasis. Co rrelate clinically for evidence of a superimposed infectious/inflammatory pneumonitis. 3. The right lung appears clear. No large pleural effusion is identified. Electronically signed by: Lonnie Soares M.D. 10/05/2018 2:08 PM
[2018-10-05 14:22] LABS: Partial Thromboplastin Time 26.3 Seconds (21.0-31.0)
[2018-10-05 14:23] LABS: BUN Creatinine Ratio 17.3 (10-20); Calcium 8.8 mg/dl (8.5-10.1); Creatinine Clr Calc Pharmacy 34.8 ml/min; Est GFR (African American) 41.6; Est GFR (Non-African American) 35.9; Potassium 3.6 mmol/L (3.5-5.1)
[2018-10-05 14:28] LABS: Albumin Globulin Ratio 0.7 (0.9-2); Bilirubin,Total 0.3 mg/dl (0.2-1); Globulin 4.1 gm/dl (2.5-4.0); Total Protein 7.1 gm/dl (6.4-8.2); Troponin I 0.02 ng/ml (0-0.045)
[2018-10-05] MEDS: SODIUM CHLORIDE 0.9% 500 ML IV SCH ×2 (14:44→19:21)
[2018-10-05] MEDS ORDERED: IOVERSOL 100ml IV PRN (15:04)
--- NOTE | 2018-10-05 15:27 | CT Scan Report ---
ADDENDUM Regarding the left kidney, a prominent column of Ke is evident best appreciated on multiplanar re formats. No left renal mass. The report will be called/faxed according to standard departmental protocol. Electronically signed by: Dwayne Davalos M.D. 10/13/2018 7:[address] abd pelvis IV con only CLINICAL HISTORY: 83 years-old Female presenting with llq pain. TECHNIQUE: Multidetector CT of the abdomen and pelvis was performed after the administration of intra venous contrast. IV contrast: 94 mL of Optiray 320. One or more dose lowering techniques were used co nsistent with the principles of ALARA (as low as reasonably achievable), including automatic exposure control, mA or kV adjustment to individual patient size, and/or use of iterative reconstruction. COMPARISON: 09/04/2018. CT DOSE (mGy.cm): The estimated cumulative dose is 1241.76 mGycm. FINDINGS: Outside Plant Supervisor topogram: Extensive surgical clips project over the mediastinum. Median sternotomy wires. Surgi raoul clips also noted in the right upper quadrant. Lung bases: Normal heart size. Coronary artery and aortic valve calcification. Epicardial pacing wire s and median sternotomy wires noted. Trace fluid at the left lung base, which appears loculated. Sutu re margin again noted at the left lung base with associated consolidation, which is overall decreased from prior, likely cicatrizing atelectasis. Bronchiectasis is noted in the left lower lobe as well a s architectural distortion. Dependent reticulation and cystic change likely indicate underlying fibro sis. Decreased size of the spiculated solid nodule in the medial basal left lower lobe, which now melissa sures approximately 1 cm, previously 1.8 cm (series 3 image 28). Mosaic attenuation and interlobular septal thickening also appreciated. Liver: Normal morphology. Several multilobular well-defined hypodensities in the liver likely hepatic cysts. Patent hepatic vasculature. Biliary: Mild biliary ductal prominence likely a reservoir effect in the post cholecystectomy state. Pneumobilia may relate to a sphincterotomy or incompetent sphincter of Oddi. Prior choledocholithiasi s no longer present. Gallbladder surgically absent. Pancreas: Trace fluid along the dorsal aspect of the pancreatic tail, which appears new from prior. P arenchyma otherwise normal apart from mild atrophy. Spleen: Normal. Adrenal glands: Normal. Kidneys and ureters: Bilateral renal cysts, including an exophytic dominant cyst at the lower pole th e left kidney, unchanged. Cortical atrophy is noted in the left kidney greater than the right. No nep hrolithiasis or hydronephrosis. Prominent renovascular calcification. Ureters nondilated. Bladder: The configuration of the bladder suggests pelvic ligamentous laxity. Bladder under distended limiting evaluation. Gas within the bladder lumen may relate to recent catheterization. Pelvic organs: Uterus normal. Ovaries may be severely atrophic, expected in the postmenopausal settin g. Bowel: Fluid noted in the colon suggesting a diarrheal state. Prominent intramural fat deposition in the cecum with lipomatous hypertrophy of the ileocecal valve. The appendix is not visualized. No miguel ángel l obstruction. Small hiatal hernia. Duodenal diverticulum at the level of the pancreatic head suspect ed. Peritoneal cavity: No free fluid or intraperitoneal gas. Lymph nodes: No enlarged lymph nodes in the abdomen or pelvis. Vasculature: Significant atherosclerosis of the abdominal aorta, with luminal irregularity due to non calcified atherosclerotic plaque as well as irregularity of the adventitia and mild ectasia measuring up to 2.8 cm. Ectasia of the infrarenal portion of the aorta is multifocal. Stents are in place in t he bilateral common iliac arteries and appear patent. Stent extends into the external iliac artery on the right. Abdominal wall: Postsurgical changes of the ventral midline abdominal wall. Musculoskeletal: Degenerative changes of the spine. Partially visualized right humeral hardware. Vagu e sclerosis in the lateral left eighth through 10th ribs, and appearance which is unchanged from prio r and somewhat linear distribution suggesting posttraumatic change. IMPRESSION: 1. Fluid in the colon suggests a diarrheal state. No other specific pathology in the left lower quad rant. 2. Evolving cicatrizing atelectasis in the left lower lobe associated with a suture margin from prio r right resection. Additional sites of spiculated solid consolidation in the left lower lobe have als o decreased from prior, suggesting either organizing pneumonia or cicatrizing atelectasis. 3. Suspected underlying pulmonary fibrosis. 4. Pneumobilia and new from prior likely related to interval sternotomy or an incompetent sphincter of Oddi. This may relate to suspected interval removal of choledocholithiasis. 5. Trace fluid along the pancreatic tail. Correlate with lipase to exclude interstitial edematous pa ncreatitis. 6. Cystic renal disease. 7. Multifocal infrarenal aortic ectasia measuring up to 2.8 cm. 8. Subacute left lateral rib fractures. Electronically signed by: Dwayne Davalos M.D. 10/05/2018 3:26 PM
--- NOTE | 2018-10-05 17:11 | History & Physical Report ---
Date of Service October 05, 2018 Assessment & Plan (1) Diarrhea: CT did show trace fluid at the pancreatic tail but patient's lipase was normal and no n/v or epigastric/upper abdominal pain so unlikely a pancreatitis. She does have pneumobilia likely due to recent ERCP. Possible pneumonia vs sca rring from wedge resection. Patient is not overtly showing s/s of pneumonia so will hold off on treatment for now. More likely cough/sob chronic due to COPD. admit med surg obs C.diff, stool cultures Protonix IV push trend hgb LR @ 80 Clear liquid diet (2) COPD (chronic obstructive pulmonary disease): continue supplemental O2, home inhalers (3) DVT prophylaxis: (4) Hypertension: continue losartan, metoprolol, (5) CAD (coronary artery disease): Continue plavix, asa, losartan, metoprolol, simvastatin (6) Aortic ectasia: Multifocal infrarenal aortic ectasia measuring up to 2.[address] (7) DVT prophylaxis: SCDs History of Present Illness Chief Complaint: Diarrhea Primary Care Provider: Irma Reid MD Ms. Maier presents today with diarrhea for three days. Her daughter with whom she lives gives most of the history. She describes the stool as watery and black and very frequent. She has a small amount of coughing as well as sob. She does wear chronic O2 for COPD. She had an ERCP within the last few days outpatient. No nausea or vomiting. She has had no sick contacts. Pmhx: CIPD, CABG x 3, shoulder arthroscopy, gallbladder surgery, stents in groin and heart, wedge resection for lung ca, htn, hld. Social: lives with daughter, smoked for about 60 years, no alcohol Family: non contributory due to advanced age. Allergies Allergy/AdvReac Type Severity Reaction Status Date / Time Penicillins Allergy Unknown THROAT Verified 10/05/18 04:04 SWELLING Sulfa (Sulfonamide Allergy Unknown THROAT Verified 10/05/18 04:04 Antibiotics) SWELLING donepezil AdvReac Intermediate Diarrhea Verified 10/05/18 04:04 Home Medications Home Medications Medication Instructions Recorded Confirmed Type Trelegy Ellipta 1 puff INHALATION QAM 06/30/18 10/05/18 History acetaminophen 1,000 mg PO QAM 06/30/18 10/05/18 History alprazolam [Xanax] 0.25 mg PO HS PRN 06/30/18 10/05/18 History divalproex [Depakote] 250 mg PO QAM 06/30/18 10/05/18 History duloxetine [Cymbalta] 60 mg PO QAM 06/30/18 10/05/18 History famotidine [Pepcid] 20 mg PO QPM 06/30/18 10/05/18 History ipratropium-albuterol 3 ml INHALATION Q4H PRN 06/30/18 10/05/18 History isosorbide mononitrate 60 mg PO QAM 06/30/18 10/05/18 History metoprolol succinate [Toprol XL] 25 mg PO QAM 06/30/18 10/05/18 History nitroglycerin [Nitrostat] 0.4 mg SUBLINGUAL DIRECTED PRN 06/30/18 10/05/18 History simvastatin [Zocor] 40 mg PO HS 06/30/18 10/05/18 History pantoprazole [Protonix] 40 mg PO QAM 08/10/18 10/05/18 History polyethylene glycol 3350 [Miralax] 17 g PO DAILY PRN 08/10/18 10/05/18 History aspirin [Aspirin Low Dose] 81 mg PO QAM 09/08/18 10/05/18 History clopidogrel 75 mg PO QAM 09/08/18 10/05/18 History losartan 25 mg PO QAM 09/08/18 10/05/18 History Past Med/Surg History Social History Preferred Language: Romansh Communication Ability: Effective 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 Beliefs That Will Affect Care: Spiritism marital status: Single Current Living Situation: Family current occupational status: retired Other Information That Helps Us Care for You: No Feels Safe at Home: Yes Safety Concerns: Feels Safe At This Time Smoking Status: Former smoker Hx Alcohol Use: No Hx Substance Use: No Review of Systems All systems reviewed & are unremarkable except as noted in HPI & below Physical Exam Vital Signs (Past 24 Hours): Last Vital Signs Temp 36.5 C 10/05/18 13:59 Pulse 81 10/05/18 16:24 Resp 18 10/05/18 16:24 BP 123/71 10/05/18 16:24 Pulse Ox 92 10/05/18 16:24 Physical Exam: General: no distress Eyes: normal inspection, PERLL Respiratory: chest non tender, crackles left base, no respiratory distress, no accessory muscle use Cardiac: regular rate and rhythm, no rub or gallop, no murmur, no edema, no jvd GI/: active bowel sounds, no abd pain or tenderness, soft, non distended Extremities: normal range of motion, normal strength, non tender Neuro:oriented x 3, moves all extremities Psych: alert, normal mood and affect Skin: normal color, dry Results & Data Laboratory Results Abnormal lab results 10/05/18 10/05/18 Range/Units 13:52 13:52 RBC 3.33 L (4.2-5.4) M/uL Hgb 10.3 L (12.0-16.0) g/dL Hct 31.8 L (37-47) % RDW Std Deviation 50.7 H (36.4-46.3) fL [place] # (Auto) 0.99 H (0.11-0.59) K/uL Chloride 109 H (98-107) mmol/L BUN 24 H (7-18) mg/dl Creatinine 1.36 H (0.6-1.2) mg/dl Glucose 102 H (70-99) mg/dl AST 10 L (15-37) U/L Albumin 3.0 L (3.4-5.0) gm/dl Globulin 4.1 H (2.5-4.0) gm/dl Albumin/Globulin Ratio 0.7 L (0.9-2) Code Status & VTE Plan Code Status DNR VTE Prophylaxis Plan VTE Prophylaxis will be ordered: Yes Supervising Physician Co-Signing Physician Notes [employer] Physician Supervision Note: I discussed with Shanae Leach NP and agree with findings and plan as documented in the note. Any exceptions or clarifications are listed here: None Patient was seen and independently examined the emergency department presence of her family. She brought to the ER because of black colored diarrhea. The patient's had a persistent problem with black colored diarrhea but had a upper endoscopy 5 days prior to admission. Is reportedly a "will remove stones". The patient then subsequently continued with diarrhea until the day of admission she was unable to get off the commode in her home because of profuse diarrhea. In the emergency department she was found to have heme positive stools Vital signs are stable on presentation her hemoglobin was slightly reduced in the 10-11 g range but that was in her normal range that she usually runs her physical exam was nonfocal with only mild diffuse abdominal pain. Patient will be observed our facility for concerns for both GI bleed and infectious diarrhea appropriate studies will be ordered in a serial manner to determine if any of these exist PT OT evaluation may be also undertaken Documented By: Keenan Hook (1) CAD (coronary artery disease) Associated angina: angina presence unspecified Coronary Disease-Associated Artery/Lesion type: unspecified vessel or lesion type [place] vs. transplanted heart: [place] heart Qualified Code(s): I25.10 - Atherosclerotic heart disease of [place] coronary artery without angina pectoris (2) Diarrhea Diarrhea type: unspecified type Qualified Code(s): R19.7 - Diarrhea, unspecified (3) COPD (chronic obstructive pulmonary disease) COPD type: emphysema Emphysema type: unspecified Qualified Code(s): J43.9 - Emphysema, unspecified
[2018-10-05] MEDS ORDERED: NITROGLYCERIN SL 0.4 MG/TAB TAB SL PRN (19:16)
[2018-10-05] MEDS ORDERED: POLYETHYLENE (MIRALAX) 17 GM PACK PO PRN (19:16)
[2018-10-05] MEDS ORDERED: ALBUT/IPRATROP 3MG/0.5MG NEB 3 ML VIAL INH PRN (19:16)
[2018-10-05] MEDS ORDERED: ACETAMINOPHEN 325 MG TAB PO PRN (19:16)
[2018-10-05] MEDS ORDERED: ONDANSETRON INJ 2 MG/ML 2 ML VIAL IV PRN (19:16)
--- NOTE | 2018-10-05 19:55 | Emergency Department Note ---
Entered by Mouna Sánchez acting as a scribe for Claudio Ashley History of Present Illness General Chief complaint: Referred by Doctor Stated complaint: PALE,TACHYCARDIA Time Seen by Provider: 10/05/18 13:56 Source: patient and family (daughter) Mode of arrival: ambulatory Limitations: no limitations History of Present Illness Provider complaint: diarrhea Onset (ago): day(s) 2 Location: buttocks Maximum Pain Intensity: 5 Associated symptoms: + denies other symptoms (pain with urination ) and + other (abdominal pain ) The patient is a 83 year old female who presents to the Emergency Room with complaints of diarrhea that began 2 days prior to arrival. The patient states that she has abdominal pain but denies any pain with urination. Pain is located left lower quadrant. Per daughter, the patient has been having diarrhea constantly since the night prior to arrival. No hematochezia, however she does note that the patient's bowel movements were very dark. No vomiting, hematuria, or fevers. No chest pain or difficulty breathing. Patient's daughter states that she and her sister would like the patient admitted for observation. She states that they called her primary care physician Dr. Reid who told the patient to be admitted for observation given her dark stools and her symptoms are not improving. Home Medications Home Medications Medication Instructions Recorded Confirmed Type Trelegy Ellipta 1 puff INHALATION QAM 06/30/18 10/05/18 History acetaminophen 1,000 mg PO QAM 06/30/18 10/05/18 History alprazolam [Xanax] 0.25 mg PO HS PRN 06/30/18 10/05/18 History divalproex [Depakote] 250 mg PO QAM 06/30/18 10/05/18 History duloxetine [Cymbalta] 60 mg PO QAM 06/30/18 10/05/18 History famotidine [Pepcid] 20 mg PO QPM 06/30/18 10/05/18 History ipratropium-albuterol 3 ml INHALATION Q4H PRN 06/30/18 10/05/18 History isosorbide mononitrate 60 mg PO QAM 06/30/18 10/05/18 History metoprolol succinate [Toprol XL] 25 mg PO QAM 06/30/18 10/05/18 History nitroglycerin [Nitrostat] 0.4 mg SUBLINGUAL DIRECTED PRN 06/30/18 10/05/18 History simvastatin [Zocor] 40 mg PO HS 06/30/18 10/05/18 History pantoprazole [Protonix] 40 mg PO QAM 08/10/18 10/05/18 History polyethylene glycol 3350 [Miralax] 17 g PO DAILY PRN 08/10/18 10/05/18 History ferrous sulfate 325 mg PO BIDM 30 Days #60 tab 09/06/18 10/05/18 Rx sucralfate 1 g PO QID 30 Days #120 tab 09/06/18 10/05/18 Rx aspirin [Aspirin Low Dose] 81 mg PO QAM 09/08/18 10/05/18 History clopidogrel 75 mg PO QAM 09/08/18 10/05/18 History losartan 25 mg PO QAM 09/08/18 10/05/18 History Allergies Allergy/AdvReac Type Severity Reaction Status Date / Time Penicillins Allergy Unknown THROAT Verified 10/05/18 04:04 SWELLING Sulfa (Sulfonamide Allergy Unknown THROAT Verified 10/05/18 04:04 Antibiotics) SWELLING donepezil AdvReac Intermediate Diarrhea Verified 10/05/18 04:04 Past Med/Surg History Social History Preferred Language: Andorran Communication Ability: Effective Pool Attendant Required: No Beliefs That Will Affect Care: Christian marital status: Single Current Living Situation: Family current occupational status: retired Other Information That Helps Us Care for You: No Feels Safe at Home: Yes Safety Concerns: Feels Safe At This Time Smoking Status: Former smoker Hx Alcohol Use: No Hx Substance Use: No Review of Systems See HPI for pertinent positives & negatives. and A total of 10 systems reviewed and were otherwise negative See HPI for pertinent positives & negatives. A total of 10 systems reviewed and were otherwise negative. Physical Exam Vital Signs Vital Signs - 24 hr 10/05/18 13:06 10/05/18 13:59 10/05/18 14:20 Temperature 36.5 C 36.5 C Temperature Source Oral Oral Sepsis Recent Fever Within 48 Hours No Sepsis Action Taken by Nursing No Action Required Pulse Rate 86 80 Pulse Rate [Apical] 80 79 Pulse Rate [Finger] Pulse Rhythm [Apical] Regular Regular Pulse Strength [Apical] Normal Normal Respiratory Rate 16 16 16 Respiratory Effort / Characteristics Non-Labored Spontaneous Non-Labored Spontaneous Respiratory Depth Normal Normal Respiratory Pattern Regular Regular Blood Pressure 107/60 Blood Pressure [Left Arm] 114/59 L Blood Pressure Mean 75 Blood Pressure Mean [Left Arm] 77 Blood Pressure Position [Left Arm] Lying Lying Pulse Oximetry 96 96 94 Oxygen Delivery Method Room Air Room Air Room Air Oxygen Flow Rate 10/05/18 14:42 10/05/18 15:11 10/05/18 16:18 Temperature Temperature Source Sepsis Recent Fever Within 48 Hours Sepsis Action Taken by Nursing Pulse Rate Pulse Rate [Apical] 77 76 Pulse Rate [Finger] Pulse Rhythm [Apical] Regular Pulse Strength [Apical] Normal Respiratory Rate 18 18 Respiratory Effort / Characteristics Non-Labored Spontaneous Non-Labored Respiratory Depth Normal Normal Respiratory Pattern Regular Regular Blood Pressure Blood Pressure [Left Arm] 113/55 L 133/63 Blood Pressure Mean Blood Pressure Mean [Left Arm] 74 86 Blood Pressure Position [Left Arm] Lying Pulse Oximetry 92 92 85 L Oxygen Delivery Method Room Air Room Air Room Air Oxygen Flow Rate 10/05/18 16:24 10/05/18 17:07 10/05/18 18:00 Temperature Temperature Source Sepsis Recent Fever Within 48 Hours Sepsis Action Taken by Nursing Pulse Rate Pulse Rate [Apical] 81 76 76 Pulse Rate [Finger] Pulse Rhythm [Apical] Pulse Strength [Apical] Respiratory Rate 18 19 18 Respiratory Effort / Characteristics Non-Labored Non-Labored Non-Labored Respiratory Depth Normal Normal Normal Respiratory Pattern Regular Regular Regular Blood Pressure Blood Pressure [Left Arm] 123/71 135/73 150/76 H Blood Pressure Mean Blood Pressure Mean [Left Arm] 88 93 100 Blood Pressure Position [Left Arm] Pulse Oximetry 92 99 100 Oxygen Delivery Method Nasal Cannula Room Air Nasal Cannula Oxygen Flow Rate 2 2 10/05/18 18:22 10/05/18 18:31 10/05/18 19:00 Temperature 36.7 C Temperature Source Oral Sepsis Recent Fever Within 48 Hours Sepsis Action Taken by Nursing Pulse Rate Pulse Rate [Apical] Pulse Rate [Finger] 81 Pulse Rhythm [Apical] Pulse Strength [Apical] Respiratory Rate Respiratory Effort / Characteristics Respiratory Depth Respiratory Pattern Blood Pressure Blood Pressure [Left Arm] 164/75 H Blood Pressure Mean Blood Pressure Mean [Left Arm] 104 Blood Pressure Position [Left Arm] Sitting Pulse Oximetry 100 98 Oxygen Delivery Method Nasal Cannula Nasal Cannula Nasal Cannula Oxygen Flow Rate 2 2 2 GENERAL: She is oriented to person, place, and time. She appears well-developed and well-nourished. She does not appear distressed. HENT: Exam performed. Head: Normocephalic and atraumatic. Right Ear: External ear normal. No mastoid tenderness. Left Ear: External ear normal. No mastoid tenderness. Mouth/Throat: The oropharynx is clear and moist. No trismus in the jaw. No dental abscesses or uvula swelling. No oropharyngeal exudate or tonsillar abscesses. EYES: Conjunctivae and EOM are normal. Pupils are equal, round, and reactive to light. Right eye exhibits no discharge. Left eye exhibits no discharge. No scleral icterus. NECK: Normal range of motion. Neck supple. No JVD present. No spinous process tenderness present. No carotid bruit present. No rigidity. No tracheal deviation and normal range of motion present. No Brudzinski's sign and no Kernig's sign noted. CV: Normal rate, regular rhythm, normal heart sounds and intact distal pulses. There is no peripheral edema. Palpable radial pulses bue. PULM/CHEST: Effort normal and breath sounds normal. No respiratory distress. No stridor. She has no wheezes. She has no rales. Chest Wall: She exhibits no tenderness. ABD: The abdomen is soft. Bowel sounds are normal. She has no distension. No mass is present. LLQ pain on palpation of abdomen. There is no rebound, no guarding, no Manzanares's sign and no tenderness at McBurney's point. Rovsig negative MUSC/SKEL: Normal range of motion. There is no peripheral edema, tenderness or deformity. LYMPH: No cervical adenopathy. NEURO: She is alert and oriented to person, place, and time. She has normal strength. No cranial nerve deficit or sensory deficit. Coordination and gait normal. GCS eye subscore is 4. GCS verbal subscore is 5. GCS motor subscore is 6. cerbellar tests wnl. SKIN: Skin is warm and dry. She is not diaphoretic. PSYCH: She has a normal mood and affect. Her behavior is normal. Judgment and t hought content normal. RECTAL EXAM: Heme positive. No bright red blood. Course 1413: Past medical records reviewed. The patient was evaluated in room C3, and a complete history and physical examination were performed. The patient was seen in the ED earlier in the morning for diarrhea. A recent ERCP on September 30 showed a dilated bowel duct and labs showed hemaglobin of 10.4. The patient had a biliary sphincterotomy and balloon extraction done by Dr. Zoie Anderson on September 30. The patient has choledocholithiasis. 1422: The patient's daughter is demanding that the patient get a CT of the abdomen done and states that Dr. Reid wants the patient to be admitted. 1524: The patient's daughter stopped me in the hallway while I was evaluating other patients stating that she wants the patient to be admitted. 1541: Vital signs stable. Labs and imaging within normal limits. Daughter is again adamant that she wants the patient admitted to the hospital for observation. [facility] will evaluate the patient for further hospitalization. The patient's vitals are stable at this time. Consultations Consultation #1: Dr. Bucio [facility] Hospitalist Time: 15:41 Administered Medications Discontinued Medications Sodium Chloride (Nss) 500 mls @ 125 mls/hr IV .Q4H MARCO Stop: 11/04/18 13:59 Last Admin: 10/05/18 19:21 Dose: Not Given Documented by: [id number] Infusion: 10/05/18 18:54 Dose: 0 mls/hr Documented by: [id number] Admin: 10/05/18 14:44 Dose: 125 mls/hr Documented by: [id number] Ioversol (Optiray 320 100ml) 94 ml IV ONCE PRN PRN Reason: Interaction Checking Stop: 10/09/18 15:03 Last Admin: 10/05/18 15:05 Dose: 1 ml Documented by: [id number] Medical Decision Making Medical Records Attestation: I reviewed the patient's medical records. Home Medications Current Medication List: was personally reviewed by me Laboratory Data Attestation: I reviewed the patient's lab results. Result diagrams: 10/05/18 13:52 10/05/18 13:52 Lab Results 10/05/18 10/05/18 10/05/18 Range/Units 13:52 13:52 13:53 WBC 8.15 (4.8-10.8) K/uL RBC 3.33 L (4.2-5.4) M/uL Hgb 10.3 L (12.0-16.0) g/dL Hct 31.8 L (37-47) % MCV 95.5 (80-100) fL MCH 30.9 (25-34) pg MCHC 32.4 (32-36) g/dL RDW Std Deviation 50.7 H (36.4-46.3) fL RDW Coeff of Calvin 14.4 (11.5-14.5) % Plt Count 272 (130-400) K/uL MPV 9.5 (7.4-10.4) fL Immature Gran % (Auto) 0.2 % Neut % (Auto) 63.2 % Lymph % (Auto) 18.8 % [place] % (Auto) 12.1 % Eos % (Auto) 5.5 % Baso % (Auto) 0.2 % Immature Gran # (Auto) 0.02 (0.00-0.02) K/uL Neut # (Auto) 5.14 (1.4-6.5) K/uL Lymph # (Auto) 1.53 (1.2-3.4) K/uL [place] # (Auto) 0.99 H (0.11-0.59) K/uL Eos # (Auto) 0.45 (0-0.5) K/uL Baso # (Auto) 0.02 (0-0.2) K/uL PT 10.0 (9.0-12.0) Seconds INR 1.0 (0.9-1.1) APTT 26.3 (21.0-31.0) Seconds PTT Ratio 1.0 Sodium 139 (136-145) mmol/L Potassium 3.6 (3.5-5.1) mmol/L Chloride 109 H (98-107) mmol/L Carbon Dioxide 23 (21-32) mmol/L Anion Gap 7.0 (3-11) BUN 24 H (7-18) mg/dl Creatinine 1.36 H (0.6-1.2) mg/dl Est Cr Clr Drug Dosing 34.8 ml/min Est GFR ( Amer) 41.6 Est GFR (Non-Af Amer) 35.9 BUN/Creatinine Ratio 17.3 (10-20) Glucose 102 H (70-99) mg/dl Calcium 8.8 (8.5-10.1) mg/dl Total Bilirubin 0.3 (0.2-1) mg/dl AST 10 L (15-37) U/L ALT 17 (12-78) U/L Alkaline Phosphatase 78 (45-117) U/L Troponin I 0.020 (0-0.045) ng/ml Total Protein 7.1 (6.4-8.2) gm/dl Albumin 3.0 L (3.4-5.0) gm/dl Globulin 4.1 H (2.5-4.0) gm/dl Albumin/Globulin Ratio 0.7 L (0.9-2) Lipase 94 (73-393) U/L Imaging Data Radiologist's Impression: Radiology results as stated below per my review and the radiologist's interpretation: SINGLE VIEW CHEST CLINICAL HISTORY: Atypical chest pain. FINDINGS: An AP, portable, upright chest radiograph is compared to study dated 08/22/2018 and correlated with chest CT dated 06/07/2018. The examination is degraded by portable technique and patient rotation. The patient is status post midline sternotomy. The heart is enlarged and there is atherosclerotic calcification of the thoracic aorta. The pulmonary vasculature is noncongested. Emphysema and chronic interstitial thickening are similar to previous. There is volume loss consistent with left-sided pulmonary resection. Airspace opacities are again seen at the left lung base. The right lung appears clear. No large pleural effusion or pneumothorax is identified. The skeletal structures are osteopenic. There are healed right-sided rib fractures. A right shoulder arthroplasty is in place. Arthritic change is noted in the left shoulder. IMPRESSION: 1. Cardiomegaly and emphysema with evidence of previous left-sided pulmonary resection. 2. Airspace opacities are again seen at the left lung base and likely represents scar/atelectasis. Correlate clinically for evidence of a superimposed infectious/inflammatory pneumonitis. 3. The right lung appears clear. No large pleural effusion is identified. Electronically signed by: Lonnie Soares M.D. 10/05/2018 2:[address] abd pelvis IV con only CLINICAL HISTORY: 83 years-old Female presenting with llq pain. TECHNIQUE: Multidetector CT of the abdomen and pelvis was performed after the administration of intravenous contrast. IV contrast: 94 mL of Optiray 320. One or more dose lowering techniques were used consistent with the principles of ALARA (as low as reasonably achievable), including automatic exposure control, mA or kV adjustment to individual patient size, and/or use of iterative reconstruction. COMPARISON: 09/04/2018. CT DOSE (mGy.cm): The estimated cumulative dose is 1241.76 mGycm. FINDINGS: Precipitator Supervisor topogram: Extensive surgical clips project over the mediastinum. Median sternotomy wires. Surgical clips also noted in the right upper quadrant. Lung bases: Normal heart size. Coronary artery and aortic valve calcification. Epicardial pacing wires and median sternotomy wires noted. Trace fluid at the left lung base, which appears loculated. Suture margin again noted at the left lung base with associated consolidation, which is overall decreased from prior, likely cicatrizing atelectasis. Bronchiectasis is noted in the left lower lobe as well as architectural distortion. Dependent reticulation and cystic change likely indicate underlying fibrosis. Decreased size of the spiculated solid nodule in the medial basal left lower lobe, which now measures approximately 1 cm, previously 1.8 cm (series 3 image 28). Mosaic attenuation and interlobular septal thickening also appreciated. Liver: Normal morphology. Several multilobular well-defined hypodensities in the liver likely hepatic cysts. Patent hepatic vasculature. Biliary: Mild biliary ductal prominence likely a reservoir effect in the post cholecystectomy state. Pneumobilia may relate to a sphincterotomy or incompetent sphincter of Oddi. Prior choledocholithiasis no longer present. Gallbladder surgically absent. Pancreas: Trace fluid along the dorsal aspect of the pancreatic tail, which appears new from prior. Parenchyma otherwise normal apart from mild atrophy. Spleen: Normal. Adrenal glands: Normal. Kidneys and ureters: Bilateral renal cysts, including an exophytic dominant cyst at the lower pole the left kidney, unchanged. Cortical atrophy is noted in the left kidney greater than the right. No nephrolithiasis or hydronephrosis. Prominent renovascular calcification. Ureters nondilated. Bladder: The configuration of the bladder suggests pelvic ligamentous laxity. Bladder under distended limiting evaluation. Gas within the bladder lumen may relate to recent catheterization. Pelvic organs: Uterus normal. Ovaries may be severely atrophic, expected in the postmenopausal setting. Bowel: Fluid noted in the colon suggesting a diarrheal state. Prominent intramural fat deposition in the cecum with lipomatous hypertrophy of the ileocecal valve. The appendix is not visualized. No bowel obstruction. Small hiatal hernia. Duodenal diverticulum at the level of the pancreatic head suspected. Peritoneal cavity: No free fluid or intraperitoneal gas. Lymph nodes: No enlarged lymph nodes in the abdomen or pelvis. Vasculature: Significant atherosclerosis of the abdominal aorta, with luminal irregularity due to noncalcified atherosclerotic plaque as well as irregularity of the adventitia and mild ectasia measuring up to 2.8 cm. Ectasia of the infrarenal portion of the aorta is multifocal. Stents are in place in the bilateral common iliac arteries and appear patent. Stent extends into the external iliac artery on the right. Abdominal wall: Postsurgical changes of the ventral midline abdominal wall. Musculoskeletal: Degenerative changes of the spine. Partially visualized right humeral hardware. Vague sclerosis in the lateral left eighth through 10th ribs, and appearance which is unchanged from prior and somewhat linear distribution suggesting posttraumatic change. IMPRESSION: 1. Fluid in the colon suggests a diarrheal state. No other specific pathology in the left lower quadrant. 2. Evolving cicatrizing atelectasis in the left lower lobe associated with a suture margin from prior right resection. Additional sites of spiculated solid consolidation in the left lower lobe have also decreased from prior, suggesting either organizing pneumonia or cicatrizing atelectasis. 3. Suspected underlying pulmonary fibrosis. 4. Pneumobilia and new from prior likely related to interval sternotomy or an incompetent sphincter of Oddi. This may relate to suspected interval removal of choledocholithiasis. 5. Trace fluid along the pancreatic tail. Correlate with lipase to exclude interstitial edematous pancreatitis. 6. Cystic renal disease. 7. Multifocal infrarenal aortic ectasia measuring up to 2.8 cm. 8. Subacute left lateral rib fractures. Electronically signed by: Dwayne Davalos M.D. 10/05/2018 3:26 PM ECG Data Attestation: I personally reviewed and interpreted this ECG as follows: Indication: abdominal pain Rate (beats per minute): 80 Rhythm: sinus rhythm Findings: + other (CO and QRS intervals within normal limits ); no ST depression and no ST elevation Comparison ECG Date: from (September 04, 2018) Change: no significant change Blood Pressure Blood Pressure Findings: Elevated blood pressure Blood Pressure Disposition: further management by hospitalist VAIBHAV Johnson 1413: Past medical records reviewed. The patient was evaluated in room C3, and a complete history and physical examination were performed. The patient was seen in the ED earlier in the morning for diarrhea. A recent ERCP on September 30 showed a dilated bowel duct and labs showed hemaglobin of 10.4. The patient had a biliary sphincterotomy and balloon extraction done by Dr. Zoie Anderson on September 30. The patient has choledocholithiasis. 1422: The patient's daughter is demanding that the patient get a CT of the abdomen done and states that Dr. Reid wants the patient to be admitted. 1524: The patient's daughter stopped me in the hallway while I was evaluating other patients stating that she wants the patient to be admitted. 1541: Vital signs stable. Labs and imaging within normal limits. Daughter is again adamant that she wants the patient admitted to the hospital for observation. I discussed the patient's case with Dr. Bonilla- [facility] Hospitalist who will evaluate the patient for further hospitalization. The patient's vitals are stable at this time. Impression & Plan GI bleed, Abdominal pain Discharge Plan Visit Data *Final* Discharge Date/Time: 10/05/18 18:22 Chief Complaint: Referred by Doctor Stated Complaint: PALE,TACHYCARDIA ED Provider: Claudio Ashley Discharge Problem: GI bleed, Abdominal pain Patient Disposition: Admitted As Inpatient Discharge Instructions Interventions: ED Discharge Assessment Last Done: 10/05/18 18:22 The scribe's documentation has been prepared under my direction and personally reviewed by me in its entirety. I confirm that the note above accurately reflects all work, treatment, procedures, and medical decision making performed by me.
[2018-10-05] MEDS: PANTOprazole 40 MG in SYRINGE 0 ML IV SCH (19:57)
[2018-10-05] MEDS: LACTATED RINGER'S 1,000 ML IV SCH (19:57)
[2018-10-05 20:44] LABS: Hematocrit (blood only) 30.8 % (37-47)
[2018-10-05] MEDS: FAMOTIDINE 20 MG TAB PO SCH (20:55)
[2018-10-05] MEDS: SIMVASTATIN 40 MG TAB PO SCH (20:56)
[2018-10-05] MEDS: SUCRALFATE 1 GM TAB PO SCH (20:56)
[2018-10-05] MEDS: FERROUS SULFATE 325 MG TAB PO SCH (20:56)
[2018-10-05] MEDS: ALPRAZolam 0.25 MG TABLET PO PRN (20:57)
[2018-10-06 07:28] LABS: Hemoglobin 10.2 g/dL (12.0-16.0); Mean Corpuscular Hgb Conc 32.9 g/dL (32-36); Mean Corpuscular Volume 94.8 fL (80-100); Mean Platelet Volume 9.5 fL (7.4-10.4); Platelet Count 254 K/uL (130-400); RDW Coefficient of Variation 14.1 % (11.5-14.5); RDW Standard Deviation 48.7 fL (36.4-46.3); Red Blood Count 3.27 M/uL (4.2-5.4); White Blood Count 7.52 K/uL (4.8-10.8)
[2018-10-06 07:48] LABS: Albumin Level 2.7 gm/dl (3.4-5.0); Aspartate Aminotransferase 8 U/L (15-37); BUN Creatinine Ratio 16.8 (10-20); Bilirubin Direct < 0.1 mg/dl (0-0.2); Blood Urea Nitrogen 18 mg/dl (7-18); Calcium 8.6 mg/dl (8.5-10.1); Carbon Dioxide 23 mmol/L (21-32); Chloride 110 mmol/L (98-107); Creatinine Clr Calc Pharmacy 43.3 ml/min; Est GFR (Non-African American) 47.4; Glucose 81 mg/dl (70-99); Potassium 3.6 mmol/L (3.5-5.1); Sodium 142 mmol/L (136-145)
[2018-10-06 07:51] LABS: Alanine Aminotransferase 13 U/L (12-78); Alkaline Phosphatase 69 U/L (45-117); Bilirubin,Total 0.4 mg/dl (0.2-1); Total Protein 6.4 gm/dl (6.4-8.2)
[2018-10-06] MEDS: LACTATED RINGER'S 1,000 ML IV SCH ×2 (08:13→21:00)
[2018-10-06] MEDS: ASPIRIN 81 MG ECTAB PO SCH (08:14)
[2018-10-06] MEDS: DIVALPROEX DELAY RELEASE 250 MG TABEC PO SCH (08:14)
[2018-10-06] MEDS: LOSARTAN POTASSIUM 25 MG TAB PO SCH (08:14)
[2018-10-06] MEDS: METOPROLOL SUCC 25MG EXT REL TAB PO SCH (08:15)
[2018-10-06] MEDS: DULOXETINE HCL 60 MG CAP PO SCH (08:15)
[2018-10-06] MEDS: FERROUS SULFATE 325 MG TAB PO SCH ×2 (08:15→17:16)
[2018-10-06] MEDS: CLOPIDOGREL BISULFATE 75 MG TAB PO SCH (08:15)
[2018-10-06] MEDS: ISOSORBIDE MONO EXTENDED REL 60 MG TABCR PO SCH (08:15)
[2018-10-06] MEDS: PANTOprazole 40 MG in SYRINGE 0 ML IV SCH (08:15)
[2018-10-06] MEDS: SUCRALFATE 1 GM TAB PO SCH ×4 (08:16→19:38)
[2018-10-06] MEDS ORDERED: PANTOprazole 40 MG TAB PO SCH ×2 (09:00)
[2018-10-06] MEDS: ACETAMINOPHEN 500 MG TAB PO SCH (12:30)
--- NOTE | 2018-10-06 15:41 | Hospitalist Progress Note ---
Date of Service October 06, 2018 Assessment & Plan (1) Diarrhea: CT did show trace fluid at the pancreatic tail but patient's lipase was normal and no n/v or epigastric/upper abdominal pain so unlikely a pancreatitis. She does have pneumobilia likely due to recent ERCP. Possible pneumonia vs sca rring from wedge resection. Patient is not overtly showing s/s of pneumonia so will hold off on treatment for now. More likely cough/sob chronic due to COPD. C.diff negative, stool cultures pending Protonix IV push trend hgb LR @ 80 Full liquid diet Consult GI - patient has seen Dr. Garber outpatient (2) COPD (chronic obstructive pulmonary disease): continue supplemental O2, home inhalers (3) Hypertension: continue losartan, metoprolol, (4) CAD (coronary artery disease): Continue plavix, asa, losartan, metoprolol, simvastatin (5) Aortic ectasia: Multifocal infrarenal aortic ectasia measuring up to 2.[address] (6) DVT prophylaxis: SCDs Per daughter's concerns about possible dementia - will set up for neurology follow up outpatient, B12 am, last TSH a few weeks ago was 3.2 Dispo: PT/OT RELL matthews to assist with discharge planning, patient lives at home with daughter with caretakers. Subjective Ms. Maier is not a very good historian but she does say she continues to have some issue with incontinence of stool. I did speak with her and two daughters in the room/speaker phone. They are concerned that she may be developing dementia as they have seen her have a decline over the last year. They also mention that the diarrhea has been an ongoing issue though the last few days was far more acute. Review of Systems All systems reviewed & are unremarkable except as noted in HPI & below Physical Exam Vital Signs (Past 24 Hours): Last Vital Signs Temp 36.5 C 10/06/18 15:29 Pulse 80 10/06/18 15:29 Resp 18 10/06/18 15:29 BP 122/70 10/06/18 15:29 Pulse Ox 98 10/06/18 15:29 Physical Exam: General: no distress Eyes: normal inspection, PERLL Respiratory: chest non tender, clear to auscultation, normal breath sounds, no respiratory distress, no accessory muscle use Cardiac: regular rate and rhythm, no rub or gallop, no murmur, no edema, no jvd GI/: active bowel sounds, no abd pain or tenderness, soft, non distended Extremities: normal range of motion, normal strength, non tender Neuro/Psych: alert and oriented to person and place, normal mood and affect Skin: normal color, dry Results & Data Laboratory Results Abnormal lab results 10/05/18 10/06/18 10/06/18 Range/Units 20:39 06:38 06:38 RBC 3.27 L (4.2-5.4) M/uL Hgb 10.0 L 10.2 L (12.0-16.0) g/dL Hct 30.8 L 31.0 L (37-47) % RDW Std Deviation 48.7 H (36.4-46.3) fL Chloride 110 H (98-107) mmol/L AST 8 L (15-37) U/L Albumin 2.7 L (3.4-5.0) gm/dl (1) CAD (coronary artery disease) Associated angina: angina presence unspecified Coronary Disease-Associated Artery/Lesion type: unspecified vessel or lesion type [place] vs. transplanted heart: [place] heart Qualified Code(s): I25.10 - Atherosclerotic heart disease of [place] coronary artery without angina pectoris (2) Diarrhea Diarrhea type: unspecified type Qualified Code(s): R19.7 - Diarrhea, unspecified (3) COPD (chronic obstructive pulmonary disease) COPD type: emphysema Emphysema type: unspecified Qualified Code(s): J43.9 - Emphysema, unspecified
[2018-10-06] MEDS: SIMVASTATIN 40 MG TAB PO SCH (19:38)
[2018-10-06] MEDS: FAMOTIDINE 20 MG TAB PO SCH (21:00)
[2018-10-06] MEDS: ALPRAZolam 0.25 MG TABLET PO PRN (21:05)
--- NOTE | 2018-10-06 22:03 | Consultation Report ---
DATE OF CONSULTATION: 10/06/2018 GASTROENTEROLOGY CONSULTATION RACE: . ATTENDING PHYSICIAN: Keenan Hook MD CONSULTING PHYSICIAN: Shakeel Garber DO REASON FOR CONSULTATION: Diarrhea. HISTORY OF PRESENT ILLNESS: Cristina Maier is an 83-year-old female who underwent an ERCP on 09/30/2018 secondary to choledocholithiasis, who performed a biliary sphincterotomy and balloon extraction of large gallstone. She did well post procedural. She presented to the Department of Emergency Medicine on 10/05/2018 with complaints of diarrhea with mild abdominal pain. She subsequently was admitted. C. diff testing was performed which has returned negative. I was asked to see the patient in consultation for the diarrhea. At the time that I saw the patient, she stated that she had had a single episode of brown liquid stool today. She states that her symptoms have greatly improved. She denied any abdominal pain. She further denied any fevers, chills, nausea, vomiting, hematemesis, melena, or hematochezia. She states that prior to her arrival, she did have 2 days of extensive diarrhea approximately 8-10 times per day with no blood, but she did have some mild abdominal pain which has subsequently resolved. She states that she tolerated a full liquid diet today without difficulty and denies any further complaints. PAST MEDICAL HISTORY: Significant for hypotension, anemia, choledocholithiasis, COPD, gastritis, GERD, [id number] carcinoma of the lung, diarrhea, pulmonary nodule in the left, brain aneurysm, heart disease, coronary artery disease, history of PR, dementia, chronic headaches, anemia, osteoarthritis, anxiety, COPD. PAST SURGICAL HISTORY: Includes shoulder surgery, cholecystectomy, CABG, cardiac catheterization with stent placement, lung surgery with lobectomy, cataract repair, ERCP with sphincterotomy, bilateral tubal ligation, appendectomy. ALLERGIES: PENICILLINS, SULFA, DONEPEZIL. MEDICATIONS AT PRESENT: Tylenol 1 gram p.o. q.a.m., albuterol/ipratropium 3 mg/0.5 mg via nebulizer q.4h. p.r.n., Xanax 0.25 mg p.o. at bedtime p.r.n., Ecotrin 81 mg p.o. q.a.m., Plavix 75 mg p.o. q.a.m., Cymbalta 60 mg p.o. q.a.m., Pepcid 20 mg p.o. q.p.m., ferrous sulfate 325 mg p.o. b.i.d., Ismo 60 mg p.o. q.a.m., Cozaar 25 mg p.o. q.a.m., Toprol-XL 25 mg p.o. q.a.m., Nitrostat 0.4 mg sublingual as directed p.r.n., Zofran 4 mg IV q.6h. p.r.n., MiraLax 17 grams p.o. daily p.r.n. constipation, Protonix 40 mg IV daily, Zocor 40 mg p.o. at bedtime, Carafate 1 gram p.o. q.i.d. SOCIAL HISTORY: No tobacco, alcohol or illicit drug use. She is a former smoker. FAMILY HISTORY: Positive for breast cancer. Negative for GI malignancy or inflammatory bowel disease. REVIEW OF SYSTEMS: Negative x12 system review other than pertinent positives listed in the HPI. PHYSICAL EXAMINATION: VITAL SIGNS: Temp 36.5, pulse 80, respirations 18, blood pressure 122/70, pulse ox 97% on 2 liters via nasal cannula. GENERAL: She is awake, cooperative, in no acute distress. HEAD: Normocephalic, atraumatic. EYES: Pupils equally round. Extraocular muscles are intact. ENT: External evaluation of ears and nose are normal. Oropharynx is clear. NECK: Soft, supple. CHEST: Clear to auscultation bilaterally. CARDIOVASCULAR SYSTEM: Regular rate and rhythm. ABDOMEN: Soft, nontender, nondistended. Positive bowel sounds. There is no hepatosplenomegaly or stigmata of chronic liver disease. EXTREMITIES: No clubbing, cyanosis, or edema. SKIN: Soft, pink. Good turgor. LABORATORY STUDIES: Include C. diff which is negative. White blood cell count 7.52, hemoglobin 10.2, hematocrit 31.0, and platelet count of 254. PT and INR 10 and 1.0. Her liver panel from today was normal. IMAGING DATA: CT scan of the abdomen and pelvis from yesterday showed fluid in the colon suggesting a diarrheal state, but no other pathology in the left lower quadrant, pneumobilia most likely related to prior ERCP with choledocholithiasis, trace fluid along the pancreatic tail, cystic renal disease, and evolving atelectasis in the left lower lobe. IMPRESSION: An 83-year-old female with resolving diarrhea who underwent ERCP with sphincterotomy and stone removal last week. PLAN: At the present time, I would follow her clinical course. C. diff. is negative. Her symptoms have seemed to improve. We could consider a dose of Questran if her diarrhea were to resume as this can be used in patients that have bile acid induced diarrhea. Following stone extraction, she may have increased bile in her small intestine which is causing symptoms. Otherwise, I would treat supportively with antidiarrheals such as Imodium, which she can take up to 8 times per day as directed. I would not recommend any invasive testing at this time, though if her symptoms were to continue or worsen, consideration could be given to performing a colonoscopy as an outpatient. Once again, thanks for allowing me to participate in the care of this patient. If you have any further questions, please do not hesitate in contacting me.
[2018-10-07] MEDS: ACETAMINOPHEN 500 MG TAB PO SCH (08:53)
[2018-10-07] MEDS: CLOPIDOGREL BISULFATE 75 MG TAB PO SCH (08:53)
[2018-10-07] MEDS: ISOSORBIDE MONO EXTENDED REL 60 MG TABCR PO SCH (08:53)
[2018-10-07] MEDS: DULOXETINE HCL 60 MG CAP PO SCH (08:53)
[2018-10-07] MEDS: METOPROLOL SUCC 25MG EXT REL TAB PO SCH (08:53)
[2018-10-07] MEDS: LACTATED RINGER'S 1,000 ML IV SCH ×2 (08:54→20:37)
[2018-10-07] MEDS: ASPIRIN 81 MG ECTAB PO SCH (08:54)
[2018-10-07] MEDS: FERROUS SULFATE 325 MG TAB PO SCH ×2 (08:54→17:10)
[2018-10-07] MEDS: SUCRALFATE 1 GM TAB PO SCH ×4 (08:54→20:35)
[2018-10-07] MEDS: DIVALPROEX DELAY RELEASE 250 MG TABEC PO SCH (08:54)
[2018-10-07] MEDS: LOSARTAN POTASSIUM 25 MG TAB PO SCH (08:54)
--- NOTE | 2018-10-07 10:30 | Gastroenterology Progress Note ---
Date of Service October 07, 2018 Assessment & Plan (1) Diarrhea: 1. Patient denies any further diarrhea. 2. Continue supportive care. 3. Will sign off at this time. Please do not hesitate to contact us if needed during this hospitalization if needed. Supervising Physician Co-Signing Physician Notes Agree with IBRAHIMA Estrada as above Abd: Soft, NT, ND, +BS Continue supportive care Continue current therapy Subjective Patient denies any further diarrhea. In fact, she states she has not had a bm this morning. Tolerating her diet. Constitutional: no problem reported Respiratory: no dyspnea Cardiovascular: no chest pain Gastrointestinal: as per Subjective / HPI Physical Exam Vital Signs (Past 24 Hours): Last Vital Signs Temp 36.7 C 10/07/18 04:00 Pulse 76 10/07/18 04:00 Resp 20 10/07/18 04:00 BP 151/67 H 10/07/18 04:00 Pulse Ox 99 10/07/18 04:00 Constitutional: WD/WN, vitals as above Respiratory: normal respiratory effort Auscultation: lungs clear to auscultation bilaterally Cardiovascular: Rate/Rhythm: regular rate and regular rhythm Gastrointestinal (Abdomen): Inspection/Auscultation: normal bowel sounds Percussion/Palpation: abdomen soft; abdomen nontender Psychiatric: A+Ox3, euthymic affect (1) Diarrhea Diarrhea type: unspecified type Qualified Code(s): R19.7 - Diarrhea, unspecified
[2018-10-07] MEDS: LOPERAMIDE HCL 2 MG CAP PO PRN ×2 (10:38→23:53)
[2018-10-07] MEDS: PANTOprazole 40 MG in SYRINGE 0 ML IV SCH (10:38)
[2018-10-07 12:35] LABS: Hematocrit (blood only) 28.6 % (37-47); Hemoglobin 9.5 g/dL (12.0-16.0); Mean Corpuscular Hgb Conc 33.2 g/dL (32-36); Mean Corpuscular Volume 93.2 fL (80-100); Mean Platelet Volume 9.1 fL (7.4-10.4); Platelet Count 241 K/uL (130-400); RDW Coefficient of Variation 13.9 % (11.5-14.5); RDW Standard Deviation 46.9 fL (36.4-46.3); Red Blood Count 3.07 M/uL (4.2-5.4); White Blood Count 6.73 K/uL (4.8-10.8)
[2018-10-07 12:55] LABS: BUN Creatinine Ratio 12.9 (10-20); Calcium 8.8 mg/dl (8.5-10.1); Creatinine Clr Calc Pharmacy 44.7 ml/min; Est GFR (African American) 56.9; Est GFR (Non-African American) 49.1; Potassium 3.7 mmol/L (3.5-5.1)
--- NOTE | 2018-10-07 14:28 | Hospitalist Progress Note ---
Date of Service October 07, 2018 Assessment & Plan (1) Diarrhea: CT did show trace fluid at the pancreatic tail but patient's lipase was normal and no n/v or epigastric/upper abdominal pain so unlikely a pancreatitis. She does have pneumobilia likely due to recent ERCP. C.diff negative, stool cultures pending Protonix IV push FOBT in ED positive - hgbs have been stable LR @ 80 Continue to advance diet Consult GI - recommends no invasive procedures for now - give immodium and cholestyramine (2) COPD (chronic obstructive pulmonary disease): continue supplemental O2, home inhalers (3) Hypertension: continue losartan, metoprolol, (4) CAD (coronary artery disease): Continue plavix, asa, losartan, metoprolol, simvastatin (5) Aortic ectasia: Multifocal infrarenal aortic ectasia measuring up to 2.[address] (6) DVT prophylaxis: SCDs Per daughter's concerns about possible dementia - will set up for neurology follow up outpatient, B12 checked and normal, last TSH a few weeks ago was 3.2 Dispo: PT/OT RELL matthews to assist with discharge planning, patient lives at home with daughter with caretakers. Subjective Ms. Maier's family is very concerned about their ability to care for Ms. Maier and the persistent diarrhea and weakness. I did have a long discussion with both daughters at bedside. Ms. Maier is a poor historian. Per the family she was confused overnight and had to move rooms for better observation by nursing. Review of Systems All systems reviewed & are unremarkable except as noted in HPI & below Physical Exam Vital Signs (Past 24 Hours): Last Vital Signs Temp 36.7 C 10/07/18 04:00 Pulse 76 10/07/18 04:00 Resp 20 10/07/18 04:00 BP 151/67 H 10/07/18 04:00 Pulse Ox 99 10/07/18 04:00 Physical Exam: General: no distress Eyes: normal inspection, PERLL Respiratory: chest non tender, clear to auscultation, normal breath sounds, no respiratory distress, no accessory muscle use Cardiac: regular rate and rhythm, no rub or gallop, no murmur, no edema, no jvd GI/: active bowel sounds, no abd pain or tenderness, soft, non distended Extremities: normal range of motion, normal strength, non tender Neuro/Psych: alert and oriented x 3, normal mood and affect, CN II - XII intact Skin: normal color, dry (1) Diarrhea Diarrhea type: unspecified type Qualified Code(s): R19.7 - Diarrhea, unspecified (2) COPD (chronic obstructive pulmonary disease) COPD type: emphysema Emphysema type: unspecified Qualified Code(s): J43.9 - Emphysema, unspecified (3) CAD (coronary artery disease) Coronary Disease-Associated Artery/Lesion type: unspecified vessel or lesion type [place] vs. transplanted heart: [place] heart Associated angina: angina presence unspecified Qualified Code(s): I25.10 - Atherosclerotic heart disease of [place] coronary artery without angina pectoris
[2018-10-07] MEDS: SIMVASTATIN 40 MG TAB PO SCH (20:36)
[2018-10-07] MEDS: FAMOTIDINE 20 MG TAB PO SCH (20:36)
[2018-10-07] MEDS: CHOLESTYRAMINE LIGHT 4 GM PKT PO SCH (22:18)
[2018-10-08] MEDS: CLOPIDOGREL BISULFATE 75 MG TAB PO SCH (07:23)
[2018-10-08] MEDS: DULOXETINE HCL 60 MG CAP PO SCH (07:23)
[2018-10-08] MEDS: LOSARTAN POTASSIUM 25 MG TAB PO SCH (07:23)
[2018-10-08] MEDS: SUCRALFATE 1 GM TAB PO SCH ×4 (07:23→19:53)
[2018-10-08] MEDS: METOPROLOL SUCC 25MG EXT REL TAB PO SCH (07:24)
[2018-10-08] MEDS: DIVALPROEX DELAY RELEASE 250 MG TABEC PO SCH (07:24)
[2018-10-08] MEDS: ISOSORBIDE MONO EXTENDED REL 60 MG TABCR PO SCH (07:24)
[2018-10-08] MEDS: FERROUS SULFATE 325 MG TAB PO SCH ×2 (07:24→16:49)
[2018-10-08] MEDS: ASPIRIN 81 MG ECTAB PO SCH (07:24)
[2018-10-08] MEDS: ACETAMINOPHEN 500 MG TAB PO SCH (07:27)
[2018-10-08 08:16] LABS: Hematocrit (blood only) 30.6 % (37-47); Hemoglobin 10.2 g/dL (12.0-16.0); Mean Corpuscular Hgb Conc 33.3 g/dL (32-36); Mean Platelet Volume 9.8 fL (7.4-10.4); Platelet Count 256 K/uL (130-400); RDW Coefficient of Variation 13.7 % (11.5-14.5); RDW Standard Deviation 47.1 fL (36.4-46.3); Red Blood Count 3.29 M/uL (4.2-5.4); White Blood Count 6.33 K/uL (4.8-10.8)
[2018-10-08 08:51] LABS: BUN Creatinine Ratio 8.4 (10-20); Calcium 9.4 mg/dl (8.5-10.1); Est GFR (African American) 58.9; Est GFR (Non-African American) 50.8; Potassium 3.1 mmol/L (3.5-5.1)
[2018-10-08] MEDS: LACTATED RINGER'S 1,000 ML IV SCH (09:11)
[2018-10-08] MEDS: CHOLESTYRAMINE LIGHT 4 GM PKT PO SCH ×2 (09:11→22:22)
[2018-10-08] MEDS: PSYLLIUM 58.6% POWDER PACKET PO SCH (10:14)
[2018-10-08] MEDS: PANTOprazole 40 MG in SYRINGE 0 ML IV SCH (10:14)
[2018-10-08] MEDS: LOPERAMIDE HCL 2 MG CAP PO PRN ×2 (10:36→16:49)
[2018-10-08] MEDS: LOPERAMIDE HCL 2 MG CAP PO SCH ×2 (14:34→19:54)
--- NOTE | 2018-10-08 14:44 | Hospitalist Progress Note ---
Date of Service October 08, 2018 Assessment & Plan (1) Diarrhea: CT did show trace fluid at the pancreatic tail but patient's lipase was normal and no n/v or epigastric/upper abdominal pain so unlikely a pancreatitis. She does have pneumobilia likely due to recent ERCP. C.diff negative, stool cultures negative Protonix IV push FOBT in ED positive - hgbs have been stable LR @ 80 Continue to advance diet Consult GI - recommends no invasive procedures for now - increase imodium, continue cholestyramine, start metamucil to bulk stool (2) COPD (chronic obstructive pulmonary disease): continue supplemental O2, home inhalers (3) Hypertension: continue losartan, metoprolol, (4) CAD (coronary artery disease): Continue plavix, asa, losartan, metoprolol, simvastatin (5) Aortic ectasia: Multifocal infrarenal aortic ectasia measuring up to 2.[address] (6) DVT prophylaxis: SCDs Per daughter's concerns about possible dementia - will set up for neurology follow up outpatient, B12 checked and normal, last TSH a few weeks ago was 3.2 Dispo: PT/OT RELL matthews to assist with discharge planning, patient lives at home with daughter with caretakers. Subjective Ms. Maier continued to have multiple bowel movements overnight which have improved today. She is still a somewhat poor historian. I did spend time at bedside answering daughters' questions. They would like patient to go home if better control of her diarrhea can be achieved Review of Systems All systems reviewed & are unremarkable except as noted in HPI & below Physical Exam Vital Signs (Past 24 Hours): Last Vital Signs Temp 36.7 C 10/08/18 11:55 Pulse 74 10/08/18 11:55 Resp 20 10/08/18 11:55 BP 162/82 H 10/08/18 11:55 Pulse Ox 93 10/08/18 11:55 Physical Exam: General: no distress Eyes: normal inspection, PERLL Respiratory: chest non tender, clear to auscultation, normal breath sounds, no respiratory distress, no accessory muscle use Cardiac: regular rate and rhythm, no rub or gallop, no murmur, no edema, no jvd GI/: active bowel sounds, no abd pain or tenderness, soft, non distended Extremities: normal range of motion, normal strength, non tender Neuro/Psych: alert and oriented x 3 with confusion, normal mood and affect Skin: normal color, dry Results & Data Laboratory Results Abnormal lab results 10/08/18 10/08/18 Range/Units 07:00 07:00 RBC 3.29 L (4.2-5.4) M/uL Hgb 10.2 L (12.0-16.0) g/dL Hct 30.6 L (37-47) % RDW Std Deviation 47.1 H (36.4-46.3) fL Potassium 3.1 L D (3.5-5.1) mmol/L BUN/Creatinine Ratio 8.4 L (10-20) (1) Diarrhea Diarrhea type: unspecified type Qualified Code(s): R19.7 - Diarrhea, unspecified (2) COPD (chronic obstructive pulmonary disease) COPD type: emphysema Emphysema type: unspecified Qualified Code(s): J43.9 - Emphysema, unspecified (3) CAD (coronary artery disease) Coronary Disease-Associated Artery/Lesion type: unspecified vessel or lesion type [place] vs. transplanted heart: [place] heart Associated angina: angina presence unspecified Qualified Code(s): I25.10 - Atherosclerotic heart disease of [place] coronary artery without angina pectoris
[2018-10-08] MEDS: FAMOTIDINE 20 MG TAB PO SCH (19:53)
[2018-10-08] MEDS: SIMVASTATIN 40 MG TAB PO SCH (19:54)
[2018-10-08] MEDS ORDERED: HEPARIN SOD 5,000 UNIT/0.5 ML VIAL SQ SCH (21:00)
[2018-10-09] MEDS: LOPERAMIDE HCL 2 MG CAP PO PRN (00:43)
[2018-10-09 07:08] LABS: Hematocrit (blood only) 30.8 % (37-47); Hemoglobin 10.3 g/dL (12.0-16.0); Mean Corpuscular Hgb Conc 33.4 g/dL (32-36); Mean Corpuscular Volume 92.5 fL (80-100); Mean Platelet Volume 9.3 fL (7.4-10.4); Platelet Count 281 K/uL (130-400); RDW Coefficient of Variation 13.6 % (11.5-14.5); Red Blood Count 3.33 M/uL (4.2-5.4); White Blood Count 6.74 K/uL (4.8-10.8)
[2018-10-09] MEDS: ACETAMINOPHEN 500 MG TAB PO SCH (08:22)
[2018-10-09] MEDS: DULOXETINE HCL 60 MG CAP PO SCH (08:23)
[2018-10-09] MEDS: LOSARTAN POTASSIUM 25 MG TAB PO SCH (08:23)
[2018-10-09] MEDS: FERROUS SULFATE 325 MG TAB PO SCH ×2 (08:23→17:36)
[2018-10-09] MEDS: ISOSORBIDE MONO EXTENDED REL 60 MG TABCR PO SCH (08:23)
[2018-10-09] MEDS: CLOPIDOGREL BISULFATE 75 MG TAB PO SCH (08:23)
[2018-10-09] MEDS: SUCRALFATE 1 GM TAB PO SCH ×4 (08:23→20:18)
[2018-10-09] MEDS: PSYLLIUM 58.6% POWDER PACKET PO SCH (08:23)
[2018-10-09] MEDS: LOPERAMIDE HCL 2 MG CAP PO SCH ×3 (08:23→20:19)
[2018-10-09] MEDS: DIVALPROEX DELAY RELEASE 250 MG TABEC PO SCH (08:23)
[2018-10-09] MEDS: METOPROLOL SUCC 25MG EXT REL TAB PO SCH (08:24)
[2018-10-09] MEDS: PANTOprazole 40 MG TAB PO SCH (08:24)
[2018-10-09] MEDS: ASPIRIN 81 MG ECTAB PO SCH (08:24)
[2018-10-09 09:01] LABS: BUN Creatinine Ratio 7.6 (10-20); Calcium 8.8 mg/dl (8.5-10.1); Creatinine Clr Calc Pharmacy 48.5 ml/min; Est GFR (African American) 63.4; Est GFR (Non-African American) 54.7; Magnesium 1.7 mg/dl (1.8-2.4); Potassium 3.1 mmol/L (3.5-5.1)
[2018-10-09] MEDS ORDERED: POTASSIUM CHLORIDE 20 MEQ TABCR PO STA (09:21)
[2018-10-09] MEDS ORDERED: MAGNESIUM SULFATE / D5W 1 GM/100 ML BAG IV ONE (09:30)
[2018-10-09] MEDS: CHOLESTYRAMINE LIGHT 4 GM PKT PO SCH ×2 (10:33→22:31)
[2018-10-09] MEDS: HEPARIN SOD 5,000 UNIT/0.5 ML VIAL SQ SCH ×2 (10:33→20:18)
[2018-10-09] MEDS ORDERED: BISMUTH SUBSALICYLATE 262 MG CHEW PO PRN (10:42)
[2018-10-09] MEDS ORDERED: POTASSIUM CHLORIDE 20 MEQ TABCR PO ONE (12:00)
--- NOTE | 2018-10-09 14:00 | Hospitalist Progress Note ---
Date of Service October 09, 2018 Assessment & Plan (1) Diarrhea: CT did show trace fluid at the pancreatic tail but patient's lipase was normal and no n/v or epigastric/upper abdominal pain so unlikely a pancreatitis. She does have pneumobilia likely due to recent ERCP. C.diff negative, stool cultures negative Protonix IV push FOBT in ED positive - hgbs have been stable Consult GI - recommends no invasive procedures for now - increase imodium, continue cholestyramine, start metamucil to bulk stool - added bismuth - GI has signed off, would reconsult tomorrow if no improvement with bismuth (2) COPD (chronic obstructive pulmonary disease): continue supplemental O2, home inhalers (3) Hypertension: continue losartan, metoprolol, (4) CAD (coronary artery disease): Continue plavix, asa, losartan, metoprolol, simvastatin (5) Aortic ectasia: Multifocal infrarenal aortic ectasia measuring up to 2.[address] (6) DVT prophylaxis: SCDs, heparin subq Per daughter's concerns about possible dementia - will set up for neurology follow up outpatient, B12 checked and normal, last TSH a few weeks ago was 3.2 Dispo: PT/OT RELL matthews to assist with discharge planning, patient lives at home with daughter with caretakers. Subjective Ms. Maier is tired today, continues to have diarrhea though with mild improvement. Daughter is bedside and updated. Review of Systems All systems reviewed & are unremarkable except as noted in HPI & below Physical Exam Vital Signs (Past 24 Hours): Last Vital Signs Temp 36.5 C 10/08/18 23:09 Pulse 84 10/08/18 23:09 Resp 18 10/08/18 23:09 BP 162/78 H 10/08/18 23:09 Pulse Ox 91 10/08/18 23:09 Physical Exam: General: no distress Eyes: normal inspection, PERLL Respiratory: chest non tender, clear to auscultation, normal breath sounds, no respiratory distress, no accessory muscle use Cardiac: regular rate and rhythm, no rub or gallop, no murmur, no edema, no jvd GI/: active bowel sounds, no abd pain or tenderness, soft, non distended Extremities: normal range of motion, normal strength, non tender Neuro/Psych: alert and oriented x 3, normal mood and affect Skin: normal color, dry Results & Data Laboratory Results Abnormal lab results 10/09/18 10/09/18 Range/Units 06:54 07:00 RBC 3.33 L (4.2-5.4) M/uL Hgb 10.3 L (12.0-16.0) g/dL Hct 30.8 L (37-47) % Potassium 3.1 L (3.5-5.1) mmol/L Chloride 109 H (98-107) mmol/L BUN/Creatinine Ratio 7.6 L (10-20) Magnesium 1.7 L (1.8-2.4) mg/dl (1) Diarrhea Diarrhea type: unspecified type Qualified Code(s): R19.7 - Diarrhea, unspecified (2) COPD (chronic obstructive pulmonary disease) COPD type: emphysema Emphysema type: unspecified Qualified Code(s): J43.9 - Emphysema, unspecified (3) CAD (coronary artery disease) Coronary Disease-Associated Artery/Lesion type: unspecified vessel or lesion type [place] vs. transplanted heart: [place] heart Associated angina: angina presence unspecified Qualified Code(s): I25.10 - Atherosclerotic heart disease of [place] coronary artery without angina pectoris
[2018-10-09] MEDS: FAMOTIDINE 20 MG TAB PO SCH (20:18)
[2018-10-09] MEDS: SIMVASTATIN 40 MG TAB PO SCH (20:19)
[2018-10-10] MEDS: LOSARTAN POTASSIUM 25 MG TAB PO SCH (08:15)
[2018-10-10] MEDS: PANTOprazole 40 MG TAB PO SCH (08:16)
[2018-10-10] MEDS: METOPROLOL SUCC 25MG EXT REL TAB PO SCH (08:16)
[2018-10-10] MEDS: SUCRALFATE 1 GM TAB PO SCH ×3 (08:16→16:31)
[2018-10-10] MEDS: CLOPIDOGREL BISULFATE 75 MG TAB PO SCH (08:16)
[2018-10-10] MEDS: DULOXETINE HCL 60 MG CAP PO SCH (08:17)
[2018-10-10] MEDS: ISOSORBIDE MONO EXTENDED REL 60 MG TABCR PO SCH (08:17)
[2018-10-10] MEDS: ASPIRIN 81 MG ECTAB PO SCH (08:17)
[2018-10-10] MEDS: DIVALPROEX DELAY RELEASE 250 MG TABEC PO SCH (08:17)
[2018-10-10] MEDS: HEPARIN SOD 5,000 UNIT/0.5 ML VIAL SQ SCH (08:20)
[2018-10-10] MEDS: PSYLLIUM 58.6% POWDER PACKET PO SCH (08:20)
[2018-10-10] MEDS: LOPERAMIDE HCL 2 MG CAP PO SCH ×2 (08:20→14:30)
[2018-10-10] MEDS: FERROUS SULFATE 325 MG TAB PO SCH ×2 (08:20→16:31)
[2018-10-10] MEDS: ACETAMINOPHEN 500 MG TAB PO SCH (08:30)
[2018-10-10 09:51] LABS: BUN Creatinine Ratio 5.9 (10-20); Creatinine Clr Calc Pharmacy 38.5 ml/min; Est GFR (African American) 47.9; Est GFR (Non-African American) 41.3; Phosphorus 2.3 mg/dl (2.5-4.9); Potassium 3.5 mmol/L (3.5-5.1)
[2018-10-10] MEDS ORDERED: POTASSIUM PHOS 3 MMOL/1 ML INFUSION IV STA (10:28)
[2018-10-10] MEDS: CHOLESTYRAMINE LIGHT 4 GM PKT PO SCH (10:31)
[2018-10-10] MEDS ORDERED: POTASSIUM PHOSPHATE 15 MMOL in SODIUM CHLORIDE 0.9% 250 ML IV ONE (10:45)
--- NOTE | 2018-10-10 12:37 | XRay Report ---
XR chest 1V portable HISTORY: 83 years-old Female Left sided pleuritic pain, recent wedge resection acute left-sided ches t pain status post recent surgery COMPARISON: Chest radiograph and CT abdomen and pelvis 10/05/2018 TECHNIQUE: Portable AP view of the chest FINDINGS: Cardiac silhouette is enlarged, unchanged. Prior median sternotomy with postoperative changes suggest [place] of prior CABG. Postoperative changes from prior left sided pulmonary resection. Subsegmental left greater than right bibasilar densities redemonstrated suggestive of atelectasis/scarring. There are pneumothorax, large pleural effusion or overt pulmonary edema. Right shoulder total joint arthroplast y. Emphysema. Degenerative changes of the left shoulder and spine. Healed remote right-sided rib frac tures. Calcification about the thoracic aortic arch. IMPRESSION: 1. Postoperative changes of the left lung redemonstrated. 2. Unchanged left greater than right bibasilar opacities are suggestive of probable atelectasis/scarr ing. 3. Cardiomegaly without overt pulmonary edema. 4. Emphysema. The above report was generated using voice recognition software. It may contain grammatical, syntax o r spelling errors. Electronically signed by: Kel Canales M.D. 10/10/2018 12:35 PM
--- NOTE | 2018-10-10 18:50 | Discharge Summary ---
Date of Service October 10, 2018 Admission HPI Per Admitting Provider Ms. Maier presents today with diarrhea for three days. Her daughter with whom she lives gives most of the history. She describes the stool as watery and black and very frequent. She has a small amount of coughing as well as sob. She does wear chronic O2 for COPD. She had an ERCP within the last few days outpatient. No nausea or vomiting. She has had no sick contacts. Pmhx: CIPD, CABG x 3, shoulder arthroscopy, gallbladder surgery, stents in groin and heart, wedge resection for lung ca, htn, hld. Social: lives with daughter, smoked for about 60 years, no alcohol Family: non contributory due to advanced age. Admission Exam Per Admitting Provider General: no distress Eyes: normal inspection, PERLL Respiratory: chest non tender, crackles left base, no respiratory distress, no accessory muscle use Cardiac: regular rate and rhythm, no rub or gallop, no murmur, no edema, no jvd GI/: active bowel sounds, no abd pain or tenderness, soft, non distended Extremities: normal range of motion, normal strength, non tender Neuro:oriented x 3, moves all extremities Psych: alert, normal mood and affect Skin: normal color, dry Principal Diagnosis Diarrhea Discharge Exam General: Resting comfortably in no apparent distress; A&OX3 HEENT: NC/AT; PERRLA with EOMI; [place] conjunctiva, MMM. Neck: Supple and nontender Cardiac: RRR w/o murmurs, gallops or rubs Lungs: CTA bilaterally; No rhonchi, wheezing, or rales Abdomen: Bowel normoactive X 4; Nontender to palpation Extremities: Warm. No edema present Neuro: No focal weakness Skin: No rash Discharge Data Allergies Allergy/AdvReac Type Severity Reaction Status Date / Time Penicillins Allergy Unknown THROAT Verified 10/05/18 04:04 SWELLING Sulfa (Sulfonamide Allergy Unknown THROAT Verified 10/05/18 04:04 Antibiotics) SWELLING donepezil AdvReac Intermediate Diarrhea Verified 10/05/18 04:04 Consultations 10/05/18 15:51 ED Decision to Admit Stat 10/05/18 19:16 Consult Case Management - Discharge Planning Routine 10/06/18 13:33 Consult Gastroenterology Routine Ordered Studies 10/05/18 14:22 CT abd pelvis IV con only Stat CXR 10/10/18 Hospital Course (1) Diarrhea: She presented with diarrhea that started after an ERCP for choledocholithiasis with extraction of a large gallstone. On CT abd/pel, she had trace fluid at pancreatic tail but lipase was normal. GI consulted, likely diarrhea related to increased bile acid/bile acid-induced diarrhea s/p ERCP. C. diff and stool cultures were negative. O&P was ordered on 10/10/18 but was not collected as diarrhea had resolved. FOBT was positive in ED -- hgb remained stable. Imodium 2 mg TID, Cholestyramine BID and Metamucil daily were started with resolution of diarrhea. GI signed off -- case was discussed with them on day of discharge. They did not recommend follow up in the GI clinic. Protonix was d/c'ed at discharge to prevent further diarrhea as sometimes diarrhea can be a side effect of PPIs. She had a formed BM on day of discharge. Will f/u with PCP as outpatient. (2) Chronic respiratory failure with hypoxia: Requires 2L via NC at night in setting of COPD. (3) COPD (chronic obstructive pulmonary disease): Continued home meds. (4) Lung cancer: Recently diagnosed in Aug 2018. She complained of left rib pain on day of discharge at site of procedure, chest tube insertion site. Also has left lateral rib fracture. Pain was re-producible to palpation. Did not require further work up. CXR was negative. (5) Hypertension: Continued home meds. (6) CAD (coronary artery disease): Continued plavix, asa, losartan, metoprolol, simvastatin. (7) Aortic ectasia: Multifocal infrarenal aortic ectasia measuring up to 2.[address] (8) Acute encephalopathy: Likely related to dementia. Will need to follow up with neuro as outpatient. (9) DVT prophylaxis: SCDs and Heparin Patient was stable for discharge to home on 10/10/18. Will need to follow up with PCP as outpatient. Discharge planning was extensively discussed with her 3 daughters on day of discharge. Total Time Total Time Spent Total Time Spent (In Minutes): >30 minutes Discharge Plan Discharge Items Patient Disposition: Home - Home Health Services Reason For Visit: DIARRHEA Discharge Diagnosis: Diarrhea Condition: Good Discharge Goals: Decrease discomfort, Improve disease control, Improve function, Increase independence, Improve nutritional status and Prevent disease Activity: As commented below Exercise/Sports: Gradually increase as tolerated Non-emergency contact: Primary Care Provider Call non-emergency contact if: you have any medication questions, your symptoms worsen and you have a fever Follow-up/Referrals: Irma Reid MD [Primary Care Provider] - Priscilla Garber PA-C [Physician Postal Clerk] - 10/18/18 3:00 pm (An appointment has been made on your behalf with [facility]. You will receive a questionaire in the mail that you will need to complete and bring with you to this appointment. Please call the office with any questions or concerns. ) Diet: Low Fat Addtl Provider Instructions: 1. Diarrhea * Please continue the following medications to prevent further episodes of diarrhea: - Cholestyramine twice daily - prescription was sent to your pharmacy in [place], [place]. - Lomotil 2 mg three times daily. This is available over the counter. - Metamucil once daily. This is available over the counter. * Please follow up with your primary care provider to discuss this hospital a dmission over the next 1-2 weeks. * Please schedule a follow up with GI as an outpatient if patient develops recurrent diarrhea. * Your Protonix was discontinued as sometimes this can worsen diarrhea 2. Confusion * Please follow up with neurology as scheduled on 10/18/09 for further evaluation. 3. Home nursing has been arranged for medication management and additional assistance with ambulation/homecare needs after discharge. 4. Please call your primary care provider or go to the ER if you develop the following: * Chest pain or shortness of breath. * Nausea/vomiting, abdominal pain or increased diarrhea (more than 3-4 severe watery bowel movements per day) Prescriptions: New Cholestyramine Light 4 gram Powder In Packet 4 g PO BID@1000,2200 30 Days Qty: 60 RF: 0 loperamide 2 mg Capsule 2 mg PO TID Qty: 1 RF: 0 Konsyl Sugar-Free 6 gram Powder In Packet 1 gm PO QAM 30 Days Qty: 1 RF: 0 Continued clopidogrel 75 mg Tablet 75 mg PO QAM RF: 0 aspirin [Aspirin Low Dose] 81 mg Tablet,Delayed Release (Dr/Ec) 81 mg PO QAM RF: 0 losartan 25 mg Tablet 25 mg PO QAM RF: 0 ipratropium-albuterol 0.5 mg-3 mg(2.5 mg base)/3 mL solution for nebulization 3 ml Inhalation Q4H PRN (Reason: Shortness Of Breath) RF: 0 divalproex [Depakote] 250 mg tablet,delayed release (DR/EC) 250 mg PO QAM RF: 0 simvastatin [Zocor] 40 mg tablet 40 mg PO HS RF: 0 isosorbide mononitrate 60 mg tablet extended release 24 hr 60 mg PO QAM RF: 0 alprazolam [Xanax] 0.25 mg tablet 0.25 mg PO HS PRN (Reason: Sleep) RF: 0 famotidine [Pepcid] 20 mg tablet 20 mg PO QPM RF: 0 metoprolol succinate [Toprol XL] 25 mg tablet extended release 24 hr 25 mg PO QAM RF: 0 duloxetine [Cymbalta] 60 mg capsule,delayed release(DR/EC) 60 mg PO QAM RF: 0 Trelegy Ellipta 100-62.5-25 mcg blister with device 1 puff Inhalation QAM RF: 0 acetaminophen 500 mg Tablet 1,000 mg PO QAM RF: 0 nitroglycerin [Nitrostat] 0.4 mg Tablet, Sublingual 0.4 mg Sublingual DIRECTED PRN (Reason: Chest Pain) RF: 0 Discontinued pantoprazole [Protonix] 40 mg Tablet,Delayed Release (Dr/Ec) 40 mg PO QAM RF: 0 polyethylene glycol 3350 [Miralax] 17 gram/dose Powder 17 g PO DAILY PRN (Reason: Constipation) RF: 0 Stand-Alone Forms: [facility] Discharge Orders: Discharge Order (Routine); Ordered 10/10/18 Ordered By: Shelbi Chandler Admission Data Admit Date/Time: 10/07/18 14:51 Attending Provider: Shelbi Chandler Admit Provider: Keenan Hook Primary Care Provider: Irma Reid Other Providers: Daniel Bonilla ; Shakeel Garber Service: Medical Other Interventions: Discharge Summary Assessment (RN) Last Done: 10/10/18 16:07 Pending Studies at Discharge: Yes Studies:: Stool for Ova and Parasites DC Date/Time DO NOT enter until pt leaves facility: 10/10/18 18:42 Supervising Physician Co-Signing Physician Notes PA Supervision Note: I personally saw and examined the patient. I verified all heredia points and agree with DEONDRE Stack with the following exceptions and/or additions: Pt reports feeling well, no further diarrhea. No abd pain. Chart reviewed in detail. Vitals reviewed NAD, alert, awake, oriented ot person and place RRR no mgr CTAB no wcr Abd +BS soft NT ND Ext no edema 83 yo female admitted with likely bila-acid induced diarrhea after a recent ERCP for choledocholithiasis, improved with Questran, imodium. Infectious cause ruled out and diarrhea resolved. F/u with PCP
--- NOTE | 2018-10-12 16:47 | Coding Query ---
CODING QUERY To promote full compliance with coding requirements relating to patient care, provider participation is requested in all cases of plastic process technician uncertainty. Please assist us with the question(s) below: Coding Question(s): Patient admitted with diarrhea. Please document below, if known or suspected, the etiology of the diarrhea. Thank you . Augustin Llamas [facility] Physician's Response(s): Bila acid-induced diarrhea Principal Diagnosis: "that condition established after study, to be chiefly responsible for occasioning the admission of the patient to the hospital for care." Co-Existing Principal Diagnosis: "when two or more diagnoses equally meet the criteria for principal diagnosis as determined by the circumstances of admission, diagnostic work up, and/or therapy provided, and the Alphabetic Index, Tabular List, or another coding guideline does not provide sequencing direction, any one of the diagnoses may be sequenced first." "When the physician has documented what appears to be a current diagnosis in the body of the record, but has not included the diagnosis in the final diagnostic statement, the physician should be asked whether the diagnosis should be added." (Source Coding [facility] 2 QTR90. p3-4) MONTY
== END 2018-10-10 18:42 | disposition home health service (06) | DRG 392 ==
LOC: ED 12:45 → 4E 12:45 → SUATTDRO 10-07 14:51